=== PATIENT | male | born 1975 | race Caucasian/White ===

== ENCOUNTER → 2019-02-20 11:55 | Outpatient (CLI) | payer OTHER, SELFPAY ==
[2019-02-20 11:58] LABS: Bacteria 0 SEEN /hpf (None Seen); Mucous, Urine 0 SEEN /hpf (<or=2+); Red Blood Cells-Urine 0 SEEN /hpf (0-5); Squamous Epithelial Cells - UA 0 SEEN /hpf (0-5); White Blood Cells 0 SEEN /hpf (0-5)
[2019-02-20 15:58] LABS: Absolute Lymphocyte Count 2.17 X10^3/uL (0.83-4.51); Absolute Neutrophil Count 3.3 X10^3/uL (2.0-7.7); Basophil# 0.06 X10^3/uL; Eosinophil# 0.08 X10^3/uL; Eosinophils% 1.3 % (0-5); Hematocrit 45.3 % (40-54); Hemoglobin 14.9 g/dL (13.0-16.5); Lymphocyte # 2.17 X10^3/ul (4.0); Mean Corp Hgb Conc 32.9 g/dL (32-36); Mean Corpuscular Hgb 29.2 pg (27.0-32.0); Mean Corpuscular Volume 88.8 fL (80-94); Mean Platelet Vol. 11.5 fl (6.2-12.0); Monocyte% 9.7 % (0-10); NRBC Flagged by Analyzer 0 % (0-5); Neutrophil # 3.27 X10^3/uL (2.7-7.7); Neutrophil % 52.7 % (47-70); Platelet Count 249 K/mm3 (150-450); White Blood Count 6.2 K/mm3 (4.4-11.0)
[2019-02-20 16:00] LABS: Color, Urine Yellow (Yellow); Glucose, Dipstick Normal (Normal); Ketone-Dipstick Negative (Negative); Leukocyte Esterase-Dipstick Negative /ul (Negative); Nitrite-Dipstick Negative (Negative); Occult Blood-Urine Negative /ul (Negative); Protein-Dipstick Negative (Negative); Specific Gravity, Urine 1.015 (1.002-1.030); Urine Bilirubin Dipstick Negative (Negative); Urine Clarity Clear (Clear); Urine Urobilinogen Normal (Normal); Urine pH 6.5 (5.0 - 8.0)
[2019-02-20 16:23] LABS: ALB/GLOB Ratio 1.4 RATIO (0.9-2.4); AST(SGOT) 22 U/L (15-37); Alanine Aminotransfer ALT/SGPT 52 U/L (16-61); Albumin, Serum 4.2 g/dL (3.2-5.0); Alkaline Phosphatase 47 U/L (45-117); Anion Gap 9 (5-15); BUN 12 mg/dL (7-18); BUN/Creat Ratio 10.6 RATIO (10-20); Calcium,Total 8.6 mg/dL (8.5-10.1); Chloride 105 mmol/L (98-107); Creatinine, Serum 1.13 mg/dL (0.70-1.30); EST Glomerular Filtration Rate 76 mL/min (>60); Est Glom Filt Rate - Afr Amer 92 mL/min (>60); Globulin 3.1 g/dL (2.2-4.2); Glucose 89 mg/dL (74-106); Potassium 4.1 mmol/L (3.5-5.1); Protein, Total 7.3 g/dL (6.4-8.2); Sodium Level 138 mmol/L (136-145); T4 Free Direct 1.15 ng/dL (0.76-1.46); Thyroid Stim Hormone (TSH) 1.02 uIU/mL (0.358-3.74)
== END ==
PROVIDERS: Family Provider Family Medicine; PCP Family Medicine; Visit Provider Family Medicine
DX: R53.83 Other fatigue (principal); R63.1 Polydipsia; R51 Headache
CPT/HCPCS: 36415; 80053; 81001; 84439; 84443; 85025

== ENCOUNTER → 2019-03-10 20:11 | Outpatient (CLI) | payer OTHER, SELFPAY | PROVIDERS: Family Provider Family Medicine; PCP Family Medicine; Referring Provider Family Medicine; Visit Provider Family Medicine | DX: G47.30 Sleep apnea, unspecified (principal); R53.83 Other fatigue; R06.83 Snoring | CPT/HCPCS: 95810 ==

== ENCOUNTER → 2019-03-25 13:49 | Outpatient (CLI) | payer OTHER, SELFPAY | PROVIDERS: Family Provider Family Medicine; PCP Family Medicine; Referring Provider Family Medicine; Visit Provider Family Medicine | DX: G47.30 Sleep apnea, unspecified (principal); R06.83 Snoring; R53.83 Other fatigue | CPT/HCPCS: 95806 ==

== ENCOUNTER → 2019-04-30 17:36 | Outpatient (CLI) | payer OTHER, SELFPAY ==
--- NOTE | 2019-04-30 17:53 | MRI_ITS ---
STUDY: MRI BRAIN WITH AND WITHOUT CONTRAST REASON FOR EXAM: Male, 43 years old. chronic daily headaches, FORGETFULLNESS, MOOD SWINGS TECHNIQUE: Standardized multiplanar fat and water weighted pulse sequences were obtained. IV 15cc dotarem was administered for the contrast portion of the examination. COMPARISON: None. FINDINGS: Normal size of the ventricles and extra-axial spaces for the patient''s age. There are a limited number of small white matter hyperintensities, distributed throughout the deep white matter tracts of the cerebral hemispheres. Normal bilateral basal ganglia. Normal thalami. There is no extra-axial fluid accumulation. Normal flow voids within the major intracranial circulation suggesting patency by spin echo criteria. Normal venous enhancement. There is no enhancing intra-axial or extra-axial abnormality. Normal sella turcica, pituitary gland, infundibular stalk, optic chiasm and hypothalamus. Normal tectal plate and pineal gland. Normal midbrain, kirt and medulla. Normal cerebellum. Normal basal cisterns. Normal bilateral temporal bones. Normal bilateral internal auditory canals. No demonstrated orbital abnormality, within the constraints of a routine brain study. Normal visualized paranasal sinuses. Normal calvarium and skull base. Normal visualized soft tissue structures. Normal visualized upper cervical spine. MRI/Brain W/WO Contrast IMPRESSION: No acute intracranial abnormality or masses. Nonspecific minimal white matter hyperintensities. Differential considerations include chronic microvascular, migraine related vasculopathy and demyelination. Electronically Signed: Josephine Layne MD at 12:13 EST Tel , Service support ,
== END ==
PROVIDERS: PCP Family Medicine; Referring Provider Family Medicine; Visit Provider Family Medicine
DX: R51 Headache (principal); R41.3 Other amnesia
CPT/HCPCS: 70553; A9575

== ENCOUNTER 2019-05-27 22:38 | Emergency (ER) | payer OTHER, SELFPAY ==
[2019-05-27 22:39] VITALS: BP 115/70; PULSE 70; RESP 22; TEMP 36.5; O2SAT 94; BMI 24.4
[2019-05-27 22:50] LABS: Absolute Lymphocyte Count 2.57 X10^3/uL (0.83-4.51); Absolute Neutrophil Count 4.7 X10^3/uL (2.0-7.7); Basophil# 0.04 X10^3/uL; Basophil% 0.5 % (0-1); Eosinophil# 0.12 X10^3/uL; Eosinophils% 1.5 % (0-5); Hematocrit 43.8 % (40-54); Hemoglobin 14.8 g/dL (13.0-16.5); Lymphocyte # 2.57 X10^3/ul (4.0); Lymphocyte % 32.6 % (19-41); Mean Corp Hgb Conc 33.8 g/dL (32-36); Mean Corpuscular Hgb 28.9 pg (27.0-32.0); Mean Corpuscular Volume 85.5 fL (80-94); Mean Platelet Vol. 10.4 fl (6.2-12.0); Monocyte# 0.47 X10^3/uL; NRBC Flagged by Analyzer 0 % (0-5); Neutrophil # 4.66 X10^3/uL (2.7-7.7); Platelet Count 234 K/mm3 (150-450); RBC Distribution Width CV 12.7 % (11.6-14.6); RBC Distribution Width SD 39.4 fl (35.1-43.9); Red Blood Count 5.12 M/mm3 (4.6-6.2); White Blood Count 7.9 K/mm3 (4.4-11.0)
--- NOTE | 2019-05-27 23:00 | ED.VISSUMM ---
- ER Visit Summary Date of Service: 05/27/19 Chief Complaint: Possible prescription medication overuse or intoxicated History of Present Illness: The patient is a 43 M chronic headaches. 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 Recently had an MRI of his brain that was unremarkable. He is on Xanax and Seroquel. Family thinks today he either overused his medications or is intoxicated on alcohol or both. But family states his been depressed lately. He has been sharpening knives but is not attempted to hurt himself. He may have had an attempt years ago but nothing recently. He has had no recent attempts nor did he leave any suicide notes. Physical Examination: Middle-aged male vital signs are stable. He is afebrile. His pulse ox is 94% on room air no signs of hypoxia. He seems intoxicated. He is slurring his speech. He does follow commands. He is confused. He does not look septic or toxic. He does not look dehydrated. H EENT exam pupils are unreactive laser motions are intact. No facial droop. Slurred speech. No signs of trauma to his face or scalp. Neck nontender no lymphadenopathy. Tongue midline. He has cupcake frosting and coloring on his tongue. Lungs clear to auscultation bilaterally. Heart regular rhythm rate about 70 no murmur. Soft nontender normal bowel sounds no peritoneal signs.. Calves are nontender without edema or cords. Neurologically the patient is awake and alert. He knows where he is at. But he does not know the month or the year. He does know the president. He does follow limited commands. His speech is slurred consistent with intoxication of either drugs and/or alcohol. Test Results: CBC white count of 7. Hemoglobin 14. No bands which is unremarkable normal creatinine and gap. Tox screen urine drug abuse pending Tylenol normal. Salicylate is normal. Alcohol elevated 203 consistent with acute alcohol intoxication. Emergency Department Course and Treatment: Screening labs and tox screen. Repeat exam patient is resting comfortably. I went over all test results with both his and her sister present in the room. They are concerned for him and his overall wellbeing and want him evaluated by either social and political studies professor or crisis in the morning. They understand that his alcohol level must come down before that will occur. Treatment Plan: Patient remained in the emergency department overnight and be evaluated by either social and political studies professor or crisis in the morning. Disposition: Awaiting social and political studies professor and/or crisis evaluation. Patient will be turned over to the overnight physician.. Impression: Acute alcohol intoxication Overuse of medications Depressed and rule out suicidal This note was generated with [employer] dictation software. It may contain incorrect words, spelling, and punctuation that were not noted in review of the chart prior to signing ED Disposition - Plan for ED Patient: Referrals: Rojelio Holley DO [Primary Care Provider] -
[2019-05-27 23:08] LABS: Anion Gap 8 (5-15); BUN 15 mg/dL (7-18); BUN/Creat Ratio 11.9 RATIO (10-20); Calcium,Total 8.7 mg/dL (8.5-10.1); Chloride 110 mmol/L (98-107); Creatinine, Serum 1.26 mg/dL (0.70-1.30); EST Glomerular Filtration Rate 67 mL/min (>60); Est Glom Filt Rate - Afr Amer 81 mL/min (>60); Estimated Creatinine Clearance 82.17 ml/min; Glucose 146 mg/dL (74-106); Potassium 3.5 mmol/L (3.5-5.1); Sodium Level 143 mmol/L (136-145)
--- NOTE | 2019-05-27 23:11 | ED.RN ---
DR. WATSON SAID PATIENT DOESN'T NEED SUICIDE PRECAUTIONS AT THIS TIME.
[2019-05-27 23:36] LABS: Acetaminophen (Tylenol) Level < 2.0 ug/mL (10.0-30.0); Salicylate < 1.7 mg/dL (2.8-20.0)
[2019-05-28] VITALS (13 sets, daily range): BP systolic 96–138; BP diastolic 59–94; PULSE 47–63; RESP 14–22; O2SAT 93–99
[2019-05-28 00:03] LABS: Amphetamine Urine VISTA NEGATIVE (<1000 ng/mL); Barbiturate Urine VISTA NEGATIVE (< 200 ng/mL); Benzodiazepine Urine VISTA POSITIVE (< 200 ng/mL); Cocaine Urine VISTA NEGATIVE (< 300 ng/mL); Ecstacy Urine VISTA NEGATIVE (< 500 ng/mL); Methadone Urine VISTA NEGATIVE (< 300 ng/mL); PCP Urine VISTA NEGATIVE (< 25 ng/mL); THC Urine VISTA NEGATIVE (< 50 ng/mL); Vista UDS pH Range 7
--- NOTE | 2019-05-28 01:06 | ED.RN ---
PATIENT'S SISTER IN LAW SHOWED US HIS PHONE WHERE EARLIER IN THE DAY PATIENT WAS GOOGLING THE BEST WAY TO COMMIT SUICIDE, HIS MEDICATIONS HE WAS TAKEN, BEST MEDS FOR ANGER IN MEN. MADE AWARE.
--- NOTE | 2019-05-28 12:09 | CM.ED ---
Social Work Consult: Substance Abuse/Mental Health Informant: Dr. Stearns Chief Complaint: Patient stating to have taken Xanax and Seroquel, that are both prescribed to patient. Patient then stating to have drank some vodka. Patient 13 year old son came home with patient family and found patient on floor passed out. Patient stating that patient family then brought patient to the ED for evaluation. Marital/Social History: to Sylvia Salazar for the past 15 years. Patient has 5 children ranging in age from 2-13. Living Situation: Lives with patient spouse and children. Support/Resources: Stating to have support from friends and family. History: None Education/Employment History: Currently unemployed as of last year about this time. 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 Patient stating that patient spouse runs an [employer] agency and this is the main income for patient family. Patient stating to have completed collage and to have no concerns with learning or comprehension. Mental Health Treatment/History: Patient denies any history of mental health diagnosis. Patient stating to have started to have bad headaches in September 2018. Patient stating to believe that headaches are due to many years of football. Patient stating to have played football in High School and [employer]. Patient denies any history of inpatient psychiatric placement. Abuse Issues: Denies. Substance Abuse Hx: Patient stating to drink 5-6 beers a day. Per patient spouse, patient has been drinking for as long as I have known him. Patient denies any prescription drug abuse and to take medications as directed. Patient denies any other substance abuse/use. Patient stating I am not an alcoholic. Risk to Self/Others: Patient denies any active suicidal thoughts or plans. Patient stating that last suicidal thoughts was 1 month ago and the thought was fleeting. Patient stating to want to live for patient children and spouse. Patient presenting as goal oriented. Counseled patient on lethal means, patient stating there are no firearms in the home. This psychiatric social worker supervisor also encouraging patient spouse to lock up any medications. Patient manages medication through a pill box. Patient denies any homicidal thoughts. Patient stating that last night was a mistake. Mental Status Exam: A&OX3 Appearance/General Behavior: Clean/Appropriate. Mood/Affect: Appropriate. Communication Pattern: Responds to questions. Thought Process: Appropriate. Assessment: Met with patient in room. Introduced self as well as psychiatric social worker supervisor role. Patient is agreeable to meeting with this psychiatric social worker supervisor. Patient spouse, Sylvia and [id number], Paula present and asked to leave the room, they did so willingly. Patient stating that trigger to patient depression is patient headaches that started in September 2018. Patient stating to believe that headaches are related to history of playing football and head trauma in relation to this. Patient stating to have been yelling at patient children and spouse and I won't want to be that jay. Patient stating to also have noticed that patient has been isolating self from family due to headaches. Patient stating to currently be managing headaches with various psych medications and one being, Xanax prescribed by patient PCP. Patient stating to have spoken to PCP today and that PCP is going to discontinue Xanax for patient due to patient mixing alcohol and Xanax last evening. Patient is concerned about not taking Xanax anymore. Per patient, patient PCP is recommending a detox program for patient to get off Xanax. Patient denies any active counseling services or support. This psychiatric social worker supervisor broaching topic of counseling for patient as support. Patient stating I don't like to talk to people. This psychiatric social worker supervisor educating patient on the benefits of counseling. Patient voicing understanding and continues to be unsure about counseling services. Patient stating to be interested in a detox program. This psychiatric social worker supervisor broaching topic of intake assessment with [facility], patient is agreeable to this. Patient giving this psychiatric social worker supervisor permission to speak with patient family. This psychiatric social worker supervisor collaborating with patient family on discharge plan, all agreeable to plan for patient to follow up with an intake assessment through [facility]. Educated patient and patient family that [facility] has walk-in appointments until 3pm today (this psychiatric social worker supervisor confirmed this by calling [facility]). Patient family planning to bring patient to intake assessment on this day. Patient family also stating concerns of patient being compliant with medications, patient family stating that patient does take prescribed dose of medications throughout the day but not appropriate to the time of day. For example: Patient might take noon medication in the evening with evening medications. Patient educated on appropriate ways to follow prescription and that if patient forgot a medication that patient should call PCP before taking this medication at a later time. Patient voicing understanding. Collaborating with Dr. Stearns. Dr. Stearns agreeable with above plan. PLAN: Discharge to home with family and intake assessment with Destiny MANTILLA, [place]
--- NOTE | 2019-05-28 12:27 | ED.DEP ---
ED Disposition - Plan for ED Patient: Instructions: Drug Abuse, OVERDOSE, Accidental (Adult) Referrals: Rojelio Holley DO [Primary Care Provider] - Additional Instructions: Go directly to the [facility] for further management as instructed by ED counseling staff
== END 2019-05-28 12:33 | disposition home or self-care (01) ==
LOC: ED 23:17
PROVIDERS: Emergency Medicine; Emergency Provider Emergency Medicine; PCP Family Medicine
DX: F10.129 Alcohol abuse with intoxication, unspecified (principal); Y90.7 Blood alcohol level of 200-239 mg/100 ml; T42.4X1A Poisoning by benzodiazepines, accidental (unintentional), initial encounter; Y92.9 Unspecified place or not applicable; F32.9 Major depressive disorder, single episode, unspecified; Z79.899 Other long term (current) drug therapy
CPT/HCPCS: 36415; 80048; 80307; 80320; 80329; 85025; 99285; A4216; G0480

== ENCOUNTER 2019-05-30 02:33 | Inpatient (IN) | payer OTHER, SELFPAY ==
[2019-05-30 02:34] VITALS: BP 124/94; PULSE 70; RESP 18; TEMP 37.1; O2SAT 99; BMI 25.2
--- NOTE | 2019-05-30 02:56 | EKG12_ITS ---
Test Reason : DYSRHYTHMIA Blood Pressure : / mmHG Vent. Rate : 053 BPM Atrial Rate : 053 BPM P-R Int : 150 ms QRS Dur : 090 ms QT Int : 448 ms P-R-T Axes : 023 -05 009 degrees QTc Int : 420 ms Sinus bradycardia Otherwise normal ECG Confirmed by JAVIER CINTRON, GEORGE ([id number]), health editor NAVDEEP MCKEON ([id number]) on 06/01/2019 2:11:25 PM Referred By: ROCÍO Confirmed By:BRIDGETTE HERRERA MD
--- NOTE | 2019-05-30 02:58 | ED.VIS.GEN ---
History of Present Illness Chief Complaint: Substance Abuse Narrative: Patient is a 43-year-old male who presents with multiple complaints. He was recently seen in the emergency department for an accidental overdose of alcohol and benzodiazepines. After evaluation and discussion with the emergency physician, the patient's primary care physician, crisis patient agreed with a plan to try to come off of benzodiazepines. He was referred to [facility]. His primary care physician had a plan to discontinue his benzodiazepines over 5 weeks and today was the first day he took a decreased dose. He complains of headache, anxiety, difficulty sleeping. He does have a history of chronic headaches which he states the benzodiazepines were helping with and believes that since this dose has been decreased this is why he has increased headache today. He was brought in by family who would like him to be admitted for the detox program. Patient is agreeable with this plan for inpatient detox. Past Medical History - Allergies and Home Meds Allergies/Adverse Reactions: Allergies No Known Allergies Allergy (Verified 05/30/19 02:37) Primary Care Physician: Rojelio Holley DO [Primary Care Provider] - Past Medical History: - - Chronic headaches, anxiety Smoking Status: Never smoker - Family History Maternal Family History: Reports: No pertinent history Review of Systems All systems negative except as indicated General: Denies: Fever Eyes: Denies: Visual changes - bilaterally Cardiovascular: Denies: Chest pain Respiratory: Denies: Dyspnea Gastrointestinal: Denies: Nausea, Vomiting, Diarrhea Neurological: Reports: Headache Psych: Reports: Anxiety Physical Exam Vital Signs/Narrative: Vital Signs Temp Pulse Resp BP Pulse Ox 05/30/19 02:34 98.7 F 70 18 124/94 H 99 Inital Vital Signs reviewed: Yes General: Well nourished, Well developed Head: Normocephalic Eyes: EOMI ENT: Moist mucous membranes Neck: Supple Cardiovascular: Regular rate, Regular rhythm Respiratory: No distress, CTA bilaterally Abdomen: Soft, Nontender Extremities: Nontender Skin: Normal color Neurological: Alert Psychological: Normal affect Diagnostic/Tx/Re-eval Laboratory Results 05/30/19 05/30/19 05/30/19 03:00 03:05 03:05 WBC 7.1 RBC 4.95 Hgb 14.5 Hct 42.8 MCV 86.5 MCH 29.3 MCHC 33.9 RDW Std Deviation 40.0 RDW Coeff of Harman 12.9 Plt Count 224 MPV 10.6 Immature Gran % (Auto) 0.400 Neut % (Auto) 49.1 Lymph % (Auto) 36.4 [place] % (Auto) 10.4 H Eos % (Auto) 3.1 Baso % (Auto) 0.6 Absolute Neuts (auto) 3.5 Absolute Lymphs (auto) 2.60 Nucleated RBC % 0 Sodium 136 Potassium 3.5 Chloride 104 Carbon Dioxide 25.0 Anion Gap 7 BUN 19 H Creatinine 1.17 Estim Creat Clear Calc 88.49 Est GFR (MDRD) Af Amer 88 Est GFR (MDRD) Non-Af 73 BUN/Creatinine Ratio 16.2 Glucose 102 Calcium 8.1 L Total Bilirubin 0.60 AST 19 ALT 44 Alkaline Phosphatase 54 Total Protein 6.7 Albumin 3.7 Globulin 3.0 Albumin/Globulin Ratio 1.2 Urine Opiates Screen NEGATIVE Urine Methadone Screen NEGATIVE Ur Barbiturates Screen NEGATIVE Ur Phencyclidine Scrn NEGATIVE Ur Amphetamines Screen NEGATIVE U Methamphetamin-MDMA NEGATIVE U Benzodiazepines Scrn POSITIVE H Urine Cocaine Screen NEGATIVE U Cannabinoids Screen NEGATIVE Ur Drug Screen Comment Ethyl Alcohol 05/30/19 03:05 WBC RBC Hgb Hct MCV MCH MCHC RDW Std Deviation RDW Coeff of Harman Plt Count MPV Immature Gran % (Auto) Neut % (Auto) Lymph % (Auto) Jerauld % (Auto) Eos % (Auto) Baso % (Auto) Absolute Neuts (auto) Absolute Lymphs (auto) Nucleated RBC % Sodium Potassium Chloride Carbon Dioxide Anion Gap BUN Creatinine Estim Creat Clear Calc Est GFR (MDRD) Af Amer Est GFR (MDRD) Non-Af BUN/Creatinine Ratio Glucose Calcium Total Bilirubin AST ALT Alkaline Phosphatase Total Protein Albumin Globulin Albumin/Globulin Ratio Urine Opiates Screen Urine Methadone Screen Ur Barbiturates Screen Ur Phencyclidine Scrn Ur Amphetamines Screen U Methamphetamin-MDMA U Benzodiazepines Scrn Urine Cocaine Screen U Cannabinoids Screen Ur Drug Screen Comment Ethyl Alcohol < 3.0 - Medical Decision Making CIWA-B score is 29. Patient does have subjective complaints of feeling very irritable and very tense. He does not show physical exam findings of severe withdrawal such as tachycardia or hypertension. He is calm and cooperative with history and examination. Patient underwent the above medical clearance which is essentially unremarkable. EKG shows sinus bradycardia at a rate of 53. Patient will be discussed with the hospitalist and admitted. ED Disposition - Plan for ED Patient: Disposition: Acute Care Hospital [facility] Diagnosis: Benzodiazepine withdrawal Referrals: Rojelio Holley DO [Primary Care Provider] -
[2019-05-30 03:11] LABS: Absolute Neutrophil Count 3.5 X10^3/uL (2.0-7.7); Basophil# 0.04 X10^3/uL; Basophil% 0.6 % (0-1); Eosinophil# 0.22 X10^3/uL; Eosinophils% 3.1 % (0-5); Hematocrit 42.8 % (40-54); Hemoglobin 14.5 g/dL (13.0-16.5); Lymphocyte % 36.4 % (19-41); Mean Corp Hgb Conc 33.9 g/dL (32-36); Mean Corpuscular Hgb 29.3 pg (27.0-32.0); Mean Corpuscular Volume 86.5 fL (80-94); Mean Platelet Vol. 10.6 fl (6.2-12.0); Monocyte# 0.74 X10^3/uL; Monocyte% 10.4 % (0-10); NRBC Flagged by Analyzer 0 % (0-5); Neutrophil # 3.51 X10^3/uL (2.7-7.7); Neutrophil % 49.1 % (47-70); Platelet Count 224 K/mm3 (150-450); RBC Distribution Width CV 12.9 % (11.6-14.6); Red Blood Count 4.95 M/mm3 (4.6-6.2); White Blood Count 7.1 K/mm3 (4.4-11.0)
[2019-05-30 03:23] LABS: Amphetamine Urine VISTA NEGATIVE (<1000 ng/mL); Barbiturate Urine VISTA NEGATIVE (< 200 ng/mL); Benzodiazepine Urine VISTA POSITIVE (< 200 ng/mL); Cocaine Urine VISTA NEGATIVE (< 300 ng/mL); Ecstacy Urine VISTA NEGATIVE (< 500 ng/mL); Methadone Urine VISTA NEGATIVE (< 300 ng/mL); PCP Urine VISTA NEGATIVE (< 25 ng/mL); THC Urine VISTA NEGATIVE (< 50 ng/mL)
[2019-05-30 03:25] LABS: Vista UDS pH Range 6
[2019-05-30 03:28] LABS: ALB/GLOB Ratio 1.2 RATIO (0.9-2.4); AST(SGOT) 19 U/L (15-37); Alanine Aminotransfer ALT/SGPT 44 U/L (16-61); Albumin, Serum 3.7 g/dL (3.2-5.0); Alkaline Phosphatase 54 U/L (45-117); Anion Gap 7 (5-15); BUN 19 mg/dL (7-18); BUN/Creat Ratio 16.2 RATIO (10-20); Calcium,Total 8.1 mg/dL (8.5-10.1); Chloride 104 mmol/L (98-107); Creatinine, Serum 1.17 mg/dL (0.70-1.30); EST Glomerular Filtration Rate 73 mL/min (>60); Est Glom Filt Rate - Afr Amer 88 mL/min (>60); Estimated Creatinine Clearance 88.49 ml/min; Glucose 102 mg/dL (74-106); Potassium 3.5 mmol/L (3.5-5.1); Protein, Total 6.7 g/dL (6.4-8.2); Sodium Level 136 mmol/L (136-145)
[2019-05-30 03:50] LABS: Alcohol, Blood (Medical)-Serum < 3.0 mg/dL
--- NOTE | 2019-05-30 04:02 | PCM.HP.STD ---
Problem List (1) EtOH dependence Status: Acute (2) Benzodiazepine withdrawal Status: Acute History of Present Illness Date of Admission: 05/30/19 Chief Complaint: headache The patient is a 43 year old M with a significant history of post concussion syndrome who presented with a headache x1 day. Patient attributes his headache to benzodiazepine withdrawal. Patient was on benzodiazepine 9 mg daily. However his primary care physician discussed with patient on tapering his benzodiazepine off. A day before presentation he was made to take a reduced dose of the benzodiazepine and then he developed headache. His headache is at the frontal area and it radiates to his thong-orbital area. He rated his pain as of intensity 9 out of 10 before presentation. And at the emergency department his pain was 8 out of 10. Also he complains of 'tension' in his bilateral shoulders; and he has posterior neck pain. On 05/27/2019 patient took a cocktail of vodka; Xanax and Seroquel and was found lying on the floor. He was brought to the emergency department. Together with the emergency department doctor, patient's family, PCP and crisis it was decided that patient follows up with [facility]. Reportedly [facility] recommended patient sees a doctor. On this presentation, at the emergency department his CIWA was scored as 29. However he did not appear to be in marjorie withdrawal by physical exams but because of the subjectiveness of the CIWA tool and the answers he gave he ended up scoring a 29 as above. Patient reports drinking about 5 beers per day. 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 Reportedly his headache intensified in September 2018. Past Medical History Medical History: Medical History (Last Updated 05/30/19 @ 05:[address] Elliot Mandujano MD) Post-concussion headache G44.309 Allergies No Known Allergies Allergy (Verified 05/30/19 02:37) Home Medications: Ambulatory Orders Medication Instructions Recorded ALPRAZolam [Xanax] 2 tab PO BID 05/27/19 Citalopram Hydrobromide 40 mg PO DAILY 05/27/19 [Citalopram HBr] Mecobalamin [B12 Active] 1 tab PO DAILY 05/27/19 Quetiapine Fumarate 100 tab PO QHS 05/27/19 Vitamin D3 1,000 mg PO DAILY 05/27/19 Alprazolam [Xanax] 1 mg PO DAILY 05/30/19 Quetiapine Fumarate [Seroquel] 25 mg PO DAILY 05/30/19 Surgical History: - - Shoulder surgery Psychiatric History: Anxiety, Depression Lives: With Family Smoking Status: Former smoker Alcohol: Heavy - *Family History Maternal History Items: Stroke, - - Brain aneurysm Paternal History Items: Cancer - Lung, Heart Disease, Hypertension, Stroke Review of Systems Constitutional: Denies: Chills, Fever, Weight Change HEENT: Reports: Head Aches. Denies: Sinus Congestion, Sinus Drainage Cardiovascular: Denies: Chest Pain, Palpitations Respiratory: Denies: Cough, Shortness of breath at rest, Sputum production Gastrointestinal: Denies: Abdominal Pain, Nausea, Vomiting Genitourinary: Denies: Dysuria Musculoskeletal: Reports: Neck Pain, Shoulder Pain - tension in shoulders; bilateral. Denies: Joint Pain, Joint Tenderness Skin: Denies: Rash, Wounds Neurological: Denies: Numbness, Tingling, Focal weakness Psychiatric: Reports: Anxiety, Depression. Denies: Homicidal Ideations, Suicidal Ideations Hematologic/ Lymphatic: Denies: Easy Bruising, Easy Bleeding VTE Information - Inpt Only VTE Present on Admission: No VTE Mechan Device Prophylaxis: None VTE Pharm Prophylaxis ordered?: No Reason prophylaxis not ordered:: Treatment Not Indicated - Low risk; encouraged to ambulate Patient Problems: Active and Suspected Problems (Last Updated 05/30/19 @ 05:[address] Elliot Mandujano MD) Benzodiazepine withdrawal (Acute) EtOH dependence (Acute) - Physical Exam Vitals/I&O's: Vital Signs Temp Pulse Resp BP Pulse Ox 98.7 F 70 18 124/94 H 99 05/30/19 02:34 05/30/19 02:34 05/30/19 02:34 05/30/19 02:34 05/30/19 02:34 Oxygen Delivery Method Room Air Weight: 81.9 kg Body Mass Index (BMI) 25.2 General: Alert, Oriented x3, Cooperative HEENT: Atraumatic, PERRLA, EOMI, Normocephalic Neck: Supple, No JVD, Negative Carotid Bruits Lungs: Clear to auscultation, Normal air movement Cardiovascular: Regular Rhythm, Normal S1, Normal S2, No murmurs, Bradycardic Abdomen: Bowel Sounds Present, Soft, Non Tender Extremities: No edema, Capillary Refill Less than 3 Seconds Skin: No rashes, No breakdown, - - Ecchymosis on right upper biceps area. Musculoskeletal: No Muscle Wasting Neurological: Cranial nerves II-XII grossly intact Psych/Mental Status: Normal Affect, Appropriate, - - Talkative Laboratory Results 05/30/19 03:00: Urine Opiates Screen NEGATIVE, Urine Methadone Screen NEGATIVE, Ur Barbiturates Screen NEGATIVE, Ur Phencyclidine Scrn NEGATIVE, Ur Amphetamines Screen NEGATIVE, U Methamphetamin-MDMA NEGATIVE, U Benzodiazepines Scrn POSITIVE H, Urine Cocaine Screen NEGATIVE, U Cannabinoids Screen NEGATIVE, Ur Drug Screen Comment 05/30/19 03:05: WBC 7.1, RBC 4.95, Hgb 14.5, Hct 42.8, MCV 86.5, MCH 29.3, MCHC 33.9, RDW Std Deviation 40.0, RDW Coeff of Harman 12.9, Plt Count 224, MPV 10.6, Immature Gran % (Auto) 0.400, Neut % (Auto) 49.1, Lymph % (Auto) 36.4, [place] % (Auto) 10.4 H, Eos % (Auto) 3.1, Baso % (Auto) 0.6, Absolute Neuts (auto) 3.5, Absolute Lymphs (auto) 2.60, Nucleated RBC % 0 05/30/19 03:05: Sodium 136, Potassium 3.5, Chloride 104, Carbon Dioxide 25.0, Anion Gap 7, BUN 19 H, Creatinine 1.17, Estim Creat Clear Calc 88.49, Est GFR (MDRD) Af Amer 88, Est GFR (MDRD) Non-Af 73, BUN/Creatinine Ratio 16.2, Glucose 102, Calcium 8.1 L, Total Bilirubin 0.60, AST 19, ALT 44, Alkaline Phosphatase 54, Total Protein 6.7, Albumin 3.7, Globulin 3.0, Albumin/Globulin Ratio 1.2 05/30/19 03:05: Ethyl Alcohol < 3.0 Assessment/Plan All Active Problems (Last Updated 05/30/19 @ 05:[address] Elliot Mandujano MD) Benzodiazepine withdrawal (Acute) EtOH dependence (Acute) The patient is a 43 year old M with a significant history of post concussion syndrome who presented with a headache and asking for detoxification from benzodiazepine and alcohol. Detoxification from alcohol and benzodiazepine. Put patient on CIWA protocol with Librium taper; multivitamins; thiamine; folic acid; methocarbamol; Tylenol; Vistaril and other supportive medications as needed. Discussed with patient that while on Librium will hold home Seroquel and order melatonin nightly PRN. Counseled. Depression and Anxiety disorder Celexa continued. DVT prophylaxis: low risk. Encourage to ambulate. Code Visit Inpatient E&M: 88123 Init Hosp L3
[2019-05-30 05:07] VITALS: BP 124/83; PULSE 47; RESP 16; TEMP 36.7; O2SAT 97
[2019-05-30 05:11] VITALS: BMI 24.1
[2019-05-30 05:34] VITALS: BMI 24.1
[2019-05-30] MEDS: Methocarbamol 750 MG Tablet PO ×3 (05:48→22:46)
[2019-05-30] MEDS: Senna/Docusate Sodium 1 Tablet 2 TABLET PO ×2 (05:48→18:14)
[2019-05-30] MEDS: chlordiazePOXIDE 25 MG Capsule 50 MG PO ×2 (05:48→11:43)
[2019-05-30] MEDS: Acetaminophen 325 MG Tablet 650 MG PO ×3 (05:49→18:14)
[2019-05-30 09:00] VITALS: BP 121/64; PULSE 53; RESP 18; TEMP 36.5; O2SAT 97
[2019-05-30] MEDS: Citalopram 40 MG TABLET PO (09:58)
[2019-05-30] MEDS: Multivitamins,Therapeutic Tablet 1 TABLET PO (09:58)
[2019-05-30] MEDS: Thiamine Hydrochloride 100 MG Tablet PO (09:58)
[2019-05-30] MEDS: Folic Acid 1 MG Tablet PO (09:58)
[2019-05-30] MEDS: hydrOXYzine PAM 25 MG Capsule 50 MG PO ×3 (10:04→22:46)
--- NOTE | 2019-05-30 12:18 | CASEMGMT ---
Social Work Consult: Substance withdrawal. Met with patient in room. Patient familiar to this secondary social studies teacher from prior visit this week. Patient remembering this secondary social studies teacher. Patient attempted outpatient services with [facility] for managing withdrawal from Xanax. Patient also consumes 5-6 beers daily, but does not see this as an issue. Patient aware that either [facility] or social work services will be following up with patient on discharge plan and supports. Kin Tello METAL CHECKER, [place]
--- NOTE | 2019-05-30 12:27 | PCM.HOSP.N ---
Hospitalist Note Patient states that he takes alprazolam for his headaches. States that he has been very emotionally labile and gets very angry over minor details, such as not able to understand directions from GPS, his son not giving his phone properly. States that whenever he gets anxious he gets a headache and then he gets even more anxious because he has a headache. States that he was having headache just talking with me. States his had a recent evaluation with a neurologist at [facility]. I discussed with the patient's , Sylvia. States that she is noticed segment changes since this summer where the patient has not been tolerating stressors lately. He had a job that he quit because he was unable to tolerate with the stress and I was recently started a job with her. The night that he became obtunded with vodka and Xanax, he had a bad day at work and was not able to process it well. She states that he has been taking his alprazolam not as instructed and has recently taking it 9 times per day. He has been seen by neurology at [facility] as mentioned above but they have recommended an psychiatric evaluation and that they were going to contact him so that he can have psychological as well as cognitive evaluation. The neurologist was concerned that the patient may have some alcoholic encephalopathy but has not been formally diagnosed with such. Went back and told the patient what I discussed with his but also discussed also that I am not sure he is actually going through acute alcohol withdrawal nor benzodiazepine withdrawal. He may be having migraines independent of any, withdrawal or it could just be a manifestation of his anxiety and then him having headache makes his anxiety even worse which may precipitate more headaches. Told that he and his that we will treat his migraine with steroids as well as Phenergan and Benadryl. I tried to tell the patient that he needs further psychiatric evaluation and counseling and that he needs to be an active participant in regards to his overall care. It seems that he has been pretty passive and just wanting medications to alleviate his symptoms as well as alcohol. I have I discontinued the Librium and put the patient on his alprazolam which she is currently been initiated on a taper by his primary care doctor which I agree with. Code Visit Procedures: Other Procedure - See Report - Non billable rounding as patient was seen after midnight by admitting physician.
[2019-05-30] MEDS: 0.9% Saline Lock 10 ML Syringe IV (13:08)
[2019-05-30] MEDS: ALPRAZolam 0.5 MG Tablet 1 MG PO ×2 (13:08→22:46)
[2019-05-30] MEDS: dexAMETHasone 10 MG/ML Vial IV (13:09)
[2019-05-30 13:54] VITALS: O2SAT 97
[2019-05-30 15:00] VITALS: BP 127/88; PULSE 60; RESP 18; TEMP 36.6; O2SAT 96
[2019-05-30] MEDS: DiphenhydrAMINE 25 MG Capsule 50 MG PO ×2 (15:55→22:45)
[2019-05-30 21:06] VITALS: BP 116/81; PULSE 61; RESP 18; TEMP 36.6; O2SAT 96
[2019-05-30] MEDS: MELATONIN 3 MG TABLET PO (22:46)
[2019-05-31] MEDS: QUEtiapine 100 MG Tablet PO (01:12)
[2019-05-31] MEDS: Acetaminophen 325 MG Tablet 650 MG PO (01:17)
[2019-05-31 01:25] VITALS: BP 100/55; PULSE 61; RESP 16; TEMP 36.5; O2SAT 94
[2019-05-31] MEDS: Senna/Docusate Sodium 1 Tablet 2 TABLET PO (06:37)
[2019-05-31] MEDS: Methocarbamol 750 MG Tablet PO (06:37)
[2019-05-31 07:26] VITALS: O2SAT 98
--- NOTE | 2019-05-31 08:36 | NURSING ---
Pt came out to the desk and had head laying on desk. Pt was upset that he has not slept in 3 days. Something has to be done, I haven't slept in 3 days. Pt very loud and walking away from this nurse as this nurse was still talking to him. This nurse talked with Dr. Ernandez about pt. No new orders for prn's to help pt sleep but Crisis called yesterday per Dr. Ernandez. This nurse Called Crisis to get a time that pt would be seen, awaiting call back.
--- NOTE | 2019-05-31 08:45 | NURSING ---
Crisis called back. Will be here in one hour.
--- NOTE | 2019-05-31 09:38 | CCHN_ITS ---
Hospitalist Note Follow-up polysubstance abuse Subjective. Patient slept only for bed last night. Patient states he is very concerned about his lack of sleep and wonders what further we can do about his sleep. States that he does not have alcohol at his house. Question that directly is he had consumed a no vodka and Xanax to knock him out and is been en dorsing the fact that he drinks 5-6 beers per day. He clarified stating that he does not have hard alcohol in his house meaning liquor. But I told him that he had vodka which is a hard liquor. He then stated that that was left over after a [employer] party that was at their house. He then clarify that beer is not really alcohol in the fact that it is not vodka or bourbon. I told him that it is alcohol but less percentage of alcohol. I continue to remind him that he does not have control over his ability with to take medications properly as he was taking amitriptyline as well as Xanax inappropriately to help alleviate sleep and headaches, respectively. Informed him that he needs to accept responsibility for his actions to stop making excuses. Patient stated that he was having really severe headache which is why he took in the vodka and the large amount of Xanax together. 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 Physical exam Vital Signs Height 1.8 m Weight: 78.471 kg Weight in Pounds 173.0 lbs Pulse Ox 98 Temperature 36.5 C Pulse Rate 61 Respiratory Rate 16 Blood Pressure 100/55 Blood Pressure Position Supine General: Patient is in bed no acute distress. No diaphoresis, no tremulousness. Head is atraumatic and normocephalic. Moves all extremity spontaneously. Assessment: 1. Migraine: Patient describing his headaches is very severe lasting for an hour or 2 and then come at certain times such as noon, 4 PM and 6 PM. States it can be very intense at times. Question of these are migraines versus cluster headaches versus just a variant of his underlying anxiety. Patient said that he would only have relief when he would take alprazolam. I reinforced to him that there is no clinical indication for alprazolam and the use of headaches of any kind. That is why think that these headaches he is experiencing could be just a physiologic manifestation of his anxiety. Will have the neurologist phone and to evaluate the patient and make further recommendations to see if he would need to be on any kind of prophylactic medications or if how else we should proceed. He is previously had an MRI that showed some changes that could be associated with migraines or other processes. Did give the patient Solu-Medrol yesterday but did not seem to have any relief on him today. 2. Polysubstance abuse: Is with alcohol and benzodiazepines. Patient's Librium was discontinued yesterday patient was monitored for signs of alcohol withdrawal which she has not manifested. From an alcohol standpoint patient may benefit from further treatment such as alcoholics anonymous. For the benzodiazepine, patient has just been using it inappropriately taking multiple pills per day with alcohol. Patient is taking it for his headaches which is clearly not indicated for. Patient is currently on a taper as he has been on thaddeus odiazepines for several months that has been initiated by his primary care physician. 3. Insomnia: Given the patient's inappropriate use of medications, as stated I would not advise Jorge Luis Tsang nor even Jacobo for high concern for him using medications inappropriately. I feel there will be less chance of harm with melatonin. Also advised proper sleep schedule with going bed a certain palmer e and with the avoidance of alcohol and caffeine and to minimize screen time prior to bed. 4. Anxiety: Is complicating care overall. Is unclear if he is just more anxious and impulsive due to his recurrent headaches or if the anxiety is contributing to these. Patient is already on citalopram at baseline. We have asked for the crisis liaison to come evaluate patient and provide additional recommendations. Patient is not suicidal so would not need any kind involuntary unit. Patient would require counseling and try to encourage patient to be involved with his care rather than being passive and wanting medications to fix everything. Greater than 60 minutes of which greater than 50% of the time was counseling the patient at bedside about alcohol, inappropriate substance use, migraines and headaches, anxiety and insomnia. Code Visit Inpatient E&M: 62069 Subs Hosp L3
[2019-05-31 09:56] VITALS: BP 133/77; PULSE 67; RESP 18; TEMP 36.6; O2SAT 98
[2019-05-31] MEDS: Citalopram 40 MG TABLET PO (10:05)
[2019-05-31] MEDS: Thiamine Hydrochloride 100 MG Tablet PO (10:05)
[2019-05-31] MEDS: Multivitamins,Therapeutic Tablet 1 TABLET PO (10:05)
[2019-05-31] MEDS: Folic Acid 1 MG Tablet PO (10:05)
[2019-05-31] MEDS: ALPRAZolam 0.5 MG Tablet 1 MG PO (10:07)
[2019-05-31 10:10] VITALS: PULSE 68
--- NOTE | 2019-05-31 12:51 | NURSING ---
Crisis has come to see pt and recommended IOP/PHP at [facility].
--- NOTE | 2019-05-31 13:16 | NURSING ---
TELEMED CONSULT W/NEUROLOGIST FROM [facility] AT THIS TIME. AT BEDSIDE ALSO.
[2019-05-31 15:00] VITALS: BP 107/53; PULSE 74; RESP 18; TEMP 36.4; O2SAT 97
--- NOTE | 2019-05-31 17:45 | PCM.DC ---
- Discharge Diagnoses Current Active Problems: Current Active and Chronic Problems (Last Updated 05/30/19 @ 05:[address] Elliot Mandujano MD) Benzodiazepine withdrawal (Acute) EtOH dependence (Acute) You will use the following diet at home:: No restrictions Your food should be the consistency of: Regular Call your doctor if you observe: - - refractory headache/migraine Allergies/Adverse Reactions: Allergies No Known Allergies Allergy (Verified 05/30/19 02:37) Medications to take at Discharge Citalopram Hydrobromide [Citalopram HBr] 40 mg PO DAILY 05/27/19 Mecobalamin [B12 Active] 1 tab PO DAILY 05/27/19 Vitamin D3 1,000 mg PO DAILY 05/27/19 ALPRAZolam [Xanax] 2 mg PO BID #0 05/31/19 Acetaminophen 2 tab PO TID PRN #1 tab 05/31/19 Ibuprofen 4 tab PO TID PRN #1 tab 05/31/19 Multivitamins,Therapeutic [Multivitamin] 1 tab PO DAILYCM tab 05/31/19 The following prescriptions were given: Acetaminophen 2 tab PO TID PRN #1 tab PRN Reason: Migraine Symptoms Ibuprofen 4 tab PO TID PRN #1 tab PRN Reason: Migraine Symptoms Primary Care Physician: Rojelio Holley DO [Primary Care Provider] - Test Results: Test results from this visit will be discussed in further detail at your follow-up appointment, if applicable. Please Follow Up With: [facility] neurology When: next scheduled appointment Please Follow Up With: Behavioral Health When: call [phone] for appointment with Zeyad Please Follow Up With: [facility] [place] When: if needed [phone] Proposed Discharge Date: 05/31/19
--- NOTE | 2019-05-31 17:50 | DS.PCM_ITS ---
Discharge Date and Diagnosis - Problem List Patient Problems: Active and Suspected Problems (Last Updated 05/30/19 @ 05:[address] Elliot Mandujano MD) Benzodiazepine withdrawal (Acute) EtOH dependence (Acute) Date of Admission: 05/30/19 Date of Discharge: 05/31/19 - Primary Discharge Diagnosis Active and Suspected Problems (Last Updated 05/30/19 @ 05:[address] Elliot Mandujano MD) Migraine Polysubstance abuse Anxiety Hospital Course and Treatment SOC Teleneurology Operations: None Procedures: None Summary of Care Provided: The patient is a 43 year old M presents seeking treatment for alcohol and benzodiazepine dependence. 1. Migraine: Patient describing his headaches is very severe lasting for an hour or 2 and then come at certain times such as noon, 4 PM and 6 PM. States it can be very intense at times. Question of these are migraines versus cluster headaches versus just a variant of his underlying anxiety. Patient said that he would only have relief when he would take alprazolam. I reinforced to him that there is no clinical indication for alprazolam and the use of headaches of any kind. That is why think that these headaches he is experiencing could be just a physiologic manifestation of his anxiety. Will have the neurologist phone and to evaluate the patient and make further recommendations to see if he would need to be on any kind of prophylactic medications or if how else we should proceed. He is previously had an MRI that showed some changes that could be associated with migraines or other processes. Did give the patient Solu-Medrol yesterday but did not seem to have any relief on him today. Patient was seen by tele-neurology who feels patient likely has medication overuse headaches and have advised to continue to wean down the alprazolam. Patient has been told by his neurologist at [facility] to discontinue it and to use gabapentin instead. I do not agree with that assessment and I recommend patient continue to wean the alprazolam to off and not to take gabapentin. Advised patient to follow-up with his [facility] neurology or neurologist [facility] for headache management. Did not seem concerning from the neurologist that this may be cluster headaches. 2. Polysubstance abuse: Is with alcohol and benzodiazepines. Patient's Librium was discontinued yesterday patient was monitored for signs of alcohol withdrawal which she has not manifested. From an alcohol standpoint patient may benefit from further treatment such as alcoholics anonymous. For the benzodiazepine, patient has just been using it inappropriately taking multiple pills per day with alcohol. Patient is taking it for his headaches which is clearly not indic ated for. Patient is currently on a taper as he has been on benzodiazepines for several months that has been initiated by his primary care physician. I made recommendations to have a slow taper of the alprazolam 1 mg tablets 2 tabs twice daily for 1 week, then 1/2 tablets twice daily for 1 week, then 1 tablet twice daily for 1 week then 1 tablet daily for 1 week, then 1 tablet every other day for 3 doses then stop. 3. Insomnia: Given the patient's inappropriate use of medications, as stated I would not advise Jorge Luis Tsang nor even Jacobo for high concern for him using medications inappropriately. I feel there will be less chance of harm with melatonin. Also advised proper sleep schedule with going bed a certain time and with the avoidance of alcohol and caffeine and to minimize screen time prior to bed. 4. Anxiety: Is complicating care overall. Is unclear if he is just more anxious and impulsive due to his recurrent headaches or if the anxiety is contributing to these. Patient is already on citalopram at baseline. We have asked for the crisis liaison to come evaluate patient and provide additional recommendations. Patient is not suicidal so would not need any kind involuntary unit. Patient would require counseling and try to encourage patient to be involved with his care rather than being passive and wanting medications to fix everything. Patient was seen by crisis who gave information for the patient follow-up with behavioral health. Number will be provided for the patient to follow-up with behavioral health on an outpatient basis. I told he and his that is okay for him to continue with his citalopram. [] Patient Problems: Active and Suspected Problems (Last Updated 05/30/19 @ 05:[address] Elliot Mandujano MD) Benzodiazepine withdrawal (Acute) EtOH dependence (Acute) - Physical Exam Vitals/I&O's: Vital Signs Temp Pulse Resp BP Pulse Ox 36.4 C L 74 18 107/53 L 97 05/31/19 15:00 05/31/19 15:00 05/31/19 15:00 05/31/19 15:00 05/31/19 15:00 Oxygen Delivery Method Room Air Weight: 78.471 kg Body Mass Index (BMI) 24.1 Intake and Output for Last 24 Hours 05/29/19 05/30/19 05/31/19 23:59 23:59 23:59 Intake Total 1612 / 1612 700 / 700 Balance 1612 / 1612 700 / 700 Current Medications Acetaminophen (Tylenol) 650 mg PO Q6H PRN PRN PRN Reason: Pain Score 1-10/Temp > 100.7 F Last Admin: 05/31/19 01:17 Dose: 650 mg Documented by: Alprazolam (Xanax) 1 mg PO BID [facility] Last Admin: 05/31/19 10:07 Dose: 1 mg Documented by: Cholecalciferol (Vitamin D (25mcg)) 1,000 unit PO DAILY [facility] Last Admin: 05/31/19 10:05 Dose: 1,000 unit Documented by: Citalopram Hydrobromide (Celexa) 40 mg PO DAILY [facility] Last Admin: 05/31/19 10:05 Dose: 40 mg Documented by: Dicyclomine HCl (Bentyl) 20 mg PO Q6H PRN PRN PRN Reason: abdominal discomfort Diphenhydramine HCl (Benadryl) 50 mg PO Q6H PRN PRN Reason: MIGRAINE SYMPTOMS Last Admin: 05/30/19 22:45 Dose: 50 mg Documented by: [facility]) [facility] Stop: 06/01/19 08:01 Last Admin: 05/31/19 10:05 Dose: 1 mg Documented by: Glucagon () 1 mg IM .X1 PRN PRN Reason: Hypoglycemia Hydroxyzine Pamoate (Vistaril Pamoate Capsule) 50 mg PO Q6H PRN PRN PRN Reason: Mild Anxiety (score 1/3) Last Admin: 05/30/19 22:46 Dose: 50 mg Documented by: Dextrose (Dextrose 10%-Water) 250 mls @ 999 mls/hr IV .Q16M PRN; Protocol PRN Reason: HYPOGLYCEMIA Lorazepam (Ativan) 2 mg IV X1 PRN PRN Reason: Seizure Methocarbamol (Methocarbamol) 750 mg PO Q6H PRN PRN PRN Reason: Muscle Aches Last Admin: 05/31/19 06:37 Dose: 750 mg Documented by: Multivitamins (Multivitamin) [facility] Last Admin: 05/31/19 10:05 Dose: 1 tablet Documented by: Ondansetron HCl (Zofran) 4 mg IV Q8H PRN PRN PRN Reason: NAUSEA/VOMITING Promethazine HCl (Phenergan) 12.5 mg IV Q6H PRN PRN PRN Reason: MIGRAINE SYMPTOMS Quetiapine Fumarate (Seroquel) 100 mg PO QHS [facility] Last Admin: 05/31/19 01:12 Dose: 100 mg Documented by: Senna/Docusate Sodium (Senokot-S, Melissa-Colace) 2 tablet PO BID PRN PRN PRN Reason: Constipation Last Admin: 05/31/19 06:37 Dose: 1 tablet Documented by: Sodium Chloride () 10 - 40 ml IV UD PRN PRN Reason: SALINE FLUSH Last Admin: 05/30/19 13:08 Dose: 10 ml Documented by: Thiamine HCl (Vitamin B1) [facility] Stop: 06/01/19 08:01 Last Admin: 05/31/19 10:05 Dose: 100 mg Documented by: Discharge Diet: No Restrictions Call your doctor if you observe: - - refractory headache/migraine Home Medications: Medications to take at Discharge Citalopram Hydrobromide [Citalopram HBr] 40 mg PO DAILY 05/27/19 Mecobalamin [B12 Active] 1 tab PO DAILY 05/27/19 Vitamin D3 1,000 mg PO DAILY 05/27/19 ALPRAZolam [Xanax] 2 mg PO BID #0 05/31/19 Acetaminophen 2 tab PO TID PRN #1 tab 05/31/19 Ibuprofen 4 tab PO TID PRN #1 tab 05/31/19 Multivitamins,Therapeutic [Multivitamin] 1 tab PO DAILYCM tab 05/31/19 Following Prescrptions Were Given to Patient: Acetaminophen 2 tab PO TID PRN #1 tab PRN Reason: Migraine Symptoms Ibuprofen 4 tab PO TID PRN #1 tab PRN Reason: Migraine Symptoms Primary Care Physician: Rojelio Holley DO [Primary Care Provider] - Please Follow Up With: [facility] neurology When: next scheduled appointment Please Follow Up With: Behavioral Health When: call [phone] for appointment with Zeyad Please Follow Up With: [facility] [place] When: if needed [phone] Disposition: Home Minutes spent on discharge:: 75 Patient Condition:: Good Medical Necessity - Tobacco Use Smoking Status: Former smoker Meaningful Use Info Meaningful Use Diagnoses (Choose all that apply): None applicable Code Visit Inpatient E&M: 62237 Disch Hosp
[2019-05-31 18:27] VITALS: BP 105/63; PULSE 64; RESP 18; TEMP 36.9; O2SAT 95
== END 2019-05-31 18:40 | disposition home or self-care (01) | DRG 103 ==
LOC: ED 03:58 → MS3 04:55
PROVIDERS: Admitting Provider Hospitalist; Emergency Provider Emergency Medicine; PCP Family Medicine
DX: G43.909 Migraine, unspecified, not intractable, without status migrainosus (principal); F41.9 Anxiety disorder, unspecified; F10.10 Alcohol abuse, uncomplicated; F13.10 Sedative, hypnotic or anxiolytic abuse, uncomplicated; Z87.891 Personal history of nicotine dependence; Z23 Encounter for immunization
CPT/HCPCS: 80053; 80307; 80320; 85025; 93005; 99284; 90686; A4216; G0480; J3490

== ENCOUNTER → 2019-07-22 10:08 | Outpatient (CLI) | payer OTHER, SELFPAY ==
[2019-07-22 12:34] LABS: CRP < 2.90 mg/L (0.0-3.0)
[2019-07-22 12:35] LABS: Vitamin B12 689 pg/mL (211-911)
[2019-07-22 12:36] LABS: Erythrocyte Sedimentation Rate < 1 mm/hr (0-15)
[2019-07-24 12:07] LABS: Testosterone, Free 10.94 ng/dL (5.00-21.00)
[2019-07-24 16:08] LABS: Testosterone, % Free 2.94 % (1.50-4.20); Testosterone, Total 372 ng/dL (264-916)
== END ==
PROVIDERS: PCP Family Medicine
DX: R53.83 Other fatigue (principal); M25.50 Pain in unspecified joint; R29.818 Other symptoms and signs involving the nervous system; R41.89 Other symptoms and signs involving cognitive functions and awareness
CPT/HCPCS: 36415; 82607; 83921; 84402; 84403; 85652; 86140

== ENCOUNTER → 2019-09-30 16:23 | Outpatient (CLI) | payer OTHER, SELFPAY ==
[2019-09-30 17:42] LABS: Hematocrit 45.1 % (40-54); Hemoglobin 14.9 g/dL (13.0-16.5); Mean Corpuscular Hgb 29.1 pg (27.0-32.0); Mean Corpuscular Volume 88.1 fL (80-94); Mean Platelet Vol. 10.6 fl (6.2-12.0); Platelet Count 241 K/mm3 (150-450); RBC Distribution Width SD 41.3 fl (35.1-43.9); Red Blood Count 5.12 M/mm3 (4.6-6.2); White Blood Count 7.3 K/mm3 (4.4-11.0)
[2019-09-30 18:03] LABS: Hemoglobin A1c 5.2 % (3.8-5.6)
[2019-09-30 18:06] LABS: Homocysteine 6.4 umol/L (3.2-10.7)
[2019-09-30 18:20] LABS: Progesterone Level 0.25 ng/mL (See Comment); Vitamin B12 928 pg/mL (211-911); Vitamin D,25 Hydroxy 30.3 ng/mL
[2019-09-30 19:02] LABS: ALB/GLOB Ratio 1.3 RATIO (0.9-2.4); AST(SGOT) 20 U/L (15-37); Alanine Aminotransfer ALT/SGPT 34 U/L (16-61); Albumin, Serum 4.2 g/dL (3.2-5.0); Alkaline Phosphatase 72 U/L (45-117); Anion Gap 5 (5-15); BUN 19 mg/dL (7-18); BUN/Creat Ratio 16.1 RATIO (10-20); CRP, High Sensitivity Cardiac 4.88 mg/L; Chloride 105 mmol/L (98-107); Cholesterol 195 mg/dL (200); Creatinine, Serum 1.18 mg/dL (0.70-1.30); EST Glomerular Filtration Rate 72 mL/min (>60); Est Glom Filt Rate - Afr Amer 87 mL/min (>60); Estradiol 27.7 pg/mL; Follicle Stimulating Hormone 3.3 mIU/mL; Free T3 3.2 pg/mL (2.18-3.98); Globulin 3.3 g/dL (2.2-4.2); Glucose 91 mg/dL (74-106); High Density Lipoprotein 43 mg/dL; Iron 56 ug/dL (65-175); Luteinizing Hormone 2.7 mIU/mL; Magnesium 2.1 mg/dL (1.6-2.6); PSA,Total - Annual Screen 0.16 ng/mL (0.00-4.00); Potassium 3.7 mmol/L (3.5-5.1); Prolactin 7.1 ng/mL; Protein, Total 7.5 g/dL (6.4-8.2); Sodium Level 139 mmol/L (136-145); T4 Total, Thyroxin 7.8 ug/dL (4.5-12.1); Triglycerides 133 mg/dL; Very Low Density Lipoprotein 27 mg/dL (5-40)
[2019-10-06 12:07] LABS: Testosterone, % Free 2.46 % (1.50-4.20); Testosterone, Free 8.34 ng/dL (5.00-21.00)
[2019-10-06 15:46] LABS: Insulin Like Growth Factor 225 ng/mL (84-270); Testosterone, Total 339 ng/dL (264-916)
== END ==
PROVIDERS: PCP Family Medicine; Referring Provider Nurse Practitioner Family; Visit Provider Nurse Practitioner Family
DX: R53.82 Chronic fatigue, unspecified (principal); M62.81 Muscle weakness (generalized); R68.82 Decreased libido
CPT/HCPCS: 36415; 80053; 80061; 82306; 82533; 82607; 82627; 82670; 82746; 83001; 83002; 83036; 83090; 83540; 83735; 84144; 84146; 84153; 84270; 84305; 84402; 84403; 84436; 84439; 84443; 84481; 85027; 86141; 82626; G0103

== ENCOUNTER 2019-12-15 09:00 | Outpatient (RCR) | payer OTHER, SELFPAY ==
--- NOTE | 2019-12-15 09:00 | BH.COMM ---
Communication Note - Communication with Client Communication Note: Met with pt to complete intial paperwork. No changes since pre-admission screening. Completed suicide risk assessment. Low Risk. Protective factors. Future-oriented.
--- NOTE | 2019-12-15 09:07 | BH.SGPN.GN ---
Behaviors/Verbalizations/Mental Status: []Client alert and oriented, neatly dressed and groomed. Eye contact good. Motor activity appropriate. Speech within normal limits. Affect unable to gather due to wearing a mask for COVID-19 protocol, mood anxious and agitated. Thoughts linear, logical, no signs of hallucinations or delusions. Reviewed client?s symptom tracker, no risk for suicidal ideation, plan, or intent as of 12/15/19. Client Response/Progress/Benefit: []Client responded well to session, receptive to feedback and engaged throughout. Client's first day of IOP and shared feeling anxious this morning. Client reported things have been a whirlwind for me recently and stated his anxiety has been increased. Client shared he goes through periods of high anxiety and then client crashes. Client reported during these crashes client feels depressed, isolates, and has a lot of negative thinking. Client shared he will often think his crashes makes his family depressed as well and then client blames himself. Connected with automatic negative thoughts and the group offered client support and advice. Client shared while he is in IOP, client would like to work on learning new coping skills, getting consistent sleep, finding an appropriate medication, and catching his symptoms early. Appeared to benefit from connecting with peers and normalizing his mental health symptoms. Will continue IOP tx to prevent decompensation, increase self-awareness, and improve mood stability. Narrative Note: []
--- NOTE | 2019-12-15 10:11 | BH.SGPN.GN ---
Behaviors/Verbalizations/Mental Status: []Client alert and oriented, casually dressed and appropriately groomed. Eye contact fair. Motor activity appropriate. Speech within normal limits. Affect could not be assessed due to pt wearing a mask as a requirement during COVID-19 pandemic. mood anxious. Thoughts linear, logical, no signs of hallucinations or delusions. Client Response/Progress/Benefit: []Client was an engaged participant AEB client providing input throughout discussion and appeared to listen attentively to others. Client connected with the topic of obstacles and solutions and worked with group to identify common obstacles that keep people stuck. Client shared current reality as feeling as if he is a lion on a hamster wheel which represents to him making no progress, being dangerous and unpredictable. Client reported for desired reality he wants to feeling more in control, stable, and ability to manage stressors more effectively. Identified barriers holding him back from desired reality to include: unwanted thoughts, delusional thoughts, anxiety, fear of failure, and out of control circumstances. Benefited from group as client was able to identify current and desired mental health state and increase awareness of how barriers can impact progress. Client's first day in IOP. Will continue IOP to increase healthy coping, challenge negative thoughts and prevent decompensation. Narrative Note: []
--- NOTE | 2019-12-15 11:10 | BH.SGPN.GN ---
Behaviors/Verbalizations/Mental Status: []Client alert and oriented, casually dressed and appropriately groomed. Eye contact good. Motor activity appropriate. Speech somewhat tangential. Affect unable to gather due to wearing a mask during the pandemic, mood anxious. Thoughts linear, logical, no signs of hallucinations or delusions. Client Response/Progress/Benefit: []Client was an active participant in group discussion and attentive during the activity. Engaged during activity and provided ideas on how to cope with internal barriers that keep clients stuck from moving towards goals. Barriers identified by client were: fatigue, fear of failure, avoiding thoughts, and control of situations. Group helped identify strategies to combat barriers identified by group members. Client reported he would like to work on overcoming the barrier of avoiding thoughts. Client shared he will do this by talking to his for support, ask for help when needed, and begin journaling thoughts. Benefited from group by identifying obstacles and solutions to desired reality. Progress was unable to be noted due to it being the first day of clients treatment. Will continue IOP tx to further prevent decompensation, increase awareness of coping skills, and monitor medications. Narrative Note: []
--- NOTE | 2019-12-16 10:42 | BH.NA ---
Physical Data - Vital Signs Pulse Rate: 82 Blood Pressure: 131/85 - Height/Weight Height: 1.8 m Weight:: 81.647 kg Weight in Pounds: 180.0 lbs Current Medication Compliance - Medication Compliance Do you take your medication as prescribed?: Yes Nutritional History - Appetite Nutritional Instructions:: If client shows signs of a swallowing problem, weight change of 10 pounds or more in the last month, or is on a diabetic diet, the physician will review and request a dietitian consult, as appropriate. All unintentional weight loss will be referred to the physician for decision on need for dietitian consult. Describe your appetite:: Fair Have you noticed a change in your eating habits lately?: No Functional Assessment - Sleep Pattern Describe any problems with sleeping: Client states sleep only recently became a problem. Client states he is sleeping 2-4 hours a night over the last week or so. - Activities Motor Activity:: Functional Sensory/Communication Assess - Communication Problems Do you have difficulty understanding what people are saying?: No What is your primary language?: Armenian Medical Problems/History - Neurological Conditions Neurological: Headaches, Other (See comments) Comments:: history of multiple concussions - Pain Assessment Do you have acute or chronic pain?: No Surgical History - Surgical History Have you had any surgeries? If so, list type and date:: Yes - right shoulder, lasik eye surgery Substance Abuse - Substance Abuse Please describe substance abuse in the last 30 days:: Client has a history of alcohol abuse. Client states he has been sober since July 2019. Client also states he was taking Xanax from April-July of 2019 and has not taken benzo medications since July. Client states when he was drinking alcohol, he had 6-8 drinks per night. He states I called it my cruise control. It kept me from feeling too depressed. Client denies tobacco or drug use. Client states he drinks 1 cup of coffee per day. Mental Status Summary - Mental Status Significant Findings/Observations on Appearance and Mood:: Client is alert and oriented x 4. Client is casually groomed with good hygiene. Client makes good eye contact. Client's speech has regular rate and volume. Client seems mildly depressed and anxious. Client is wearing a mask due to Covid19 pandemic. Client has normal processing. Client denies delusions or hallucinations at this time. Client denies SI. Suicide Assessment - Suicidal Ideation Suicidal Intentional Rating Scale (SIRS): Suicidal thoughts (past) - denies SI this date. Physician Notification: If Active suicidal thoughts/Will not contract for safety is checked, contact physician and document in the Physician Notification section below. Past Psychiatric History - MH Treatment Hx Past Psychiatric Medications:: Xanax Age of first mental health symptoms: Client states he recently was diagnosed with depression. Client states he was masking his symptoms before with alcohol use and now that he is sober, he is dealing with depression symptoms. Describe (age, circumstance, etc) any past hospitalizations: Client went through drug detox earlier this year in June, and a substance abuse program at [facility] in August 2019. Current providers for mental health treatment (counselor, psychiatrist, outpatient case manager, etc.): Client states he goes to [facility] weekly. Client states he had one therapy session at [facility]. Fall Risk Assessment - Age Age: Less than 60 - Mental Status Mental Status: Willing & able to ask for assistance when needed - Physical Status Physical Status: No problems - Impairments Impairments: None - Elimination Elimination: Continent AND independent - Gait or Balance Gait or Balance: Walks independently - Hx of Falls History of falls in the past 6 months: No known history - Medications/Substances Psychotropics:: Antidepressants, Stimulants Medications/substances used within the past 24 hours or ordered to administer: 1-2 of the medications/substances listed above - Total Score Total Points:: 1 RN Summary of Impressions - Impressions Recommendations: Include psychiatric and medical issues, treatment planning recommendations, and discharge planning needs. Impressions: Psychiatric Issues: Major depressive disorder, recurrent, severe without psychosis. Generalized anxiety disorder. Alcohol use disorder in remission. Benzodiazepine use disorder in remission. - Level of Care How do the client's current symptoms and functional deficits support need for this level of care?: Client states his depression and anxiety have worsened over the last few months. Client states he used to self-medicate for his mental health symptoms with alcohol, which he has been sober from since July 2019. Client also used Xanax from April-July of 2019. Client has been through substance abuse treatment and states he has no desire to drink. Client states he has been frustrated over the last few months that he has been working hard to improve mental health and feels worse. Client complains of feeling irritable, worthless, ruminating, poor concentration, and hopeless. Client states he is mentally and physcially exhausted from these symptoms not improving. Client states last week he was having fleeting suicidal thoughts with no plan, but denies all suicidal thoughts today. IOP will promote gains and prevent further decompensation while providing social support and skills training.
--- NOTE | 2019-12-16 11:14 | BH.SGPN.GN ---
Behaviors/Verbalizations/Mental Status: []Client alert and oriented, casually dressed and groomed. Eye contact fair. Motor activity appropriate. Speech within normal limits. Affect unable to gather due to client wearing a mask for the pandemic. Mood anxious. Thoughts linear, logical, no signs of hallucinations or delusions. Client Response/Progress/Benefit: []Client responded well to session as evidenced by client listening attentively to others and providing strategies during discussion. Client identified his warning signs for crisis and gained further awareness of earliest warning signs. Client used the warning signs: racing thoughts, negative thinking, sleeping less than usual, and lack of motivation to create his crisis plan. Client created a crisis action plan to help client better manage warning signs for crisis. Client?s plan included: reminding himself that thoughts are thoughts not facts, opposite action, DDD, reduce daily to-do list, ask for clarification, and meditation. Client reported creating a plan will help client ?realign my neurotransmitters? and make healthy coping skills more automatic. Client appeared to benefit from creating a crisis action plan and increasing self-awareness. Client?s second day of IOP tx. Client to continue IOP tx to prevent decompensation, monitor medications, and improve daily functioning. Narrative Note: []
[2019-12-16 11:19] VITALS: BP 131/85; PULSE 82
--- NOTE | 2019-12-16 12:20 | PCM.BH.PSYEV ---
Psychiatric Evaluation - Initial Evaluation Initial Evaluation: [] History of Present Illness: [] The patient is a 44-year-old female who is seen with his for the initial interview. He has a history of depression, alcohol and benzodiazepine dependence and possible ADD. Patient has been for 16 years and is seen with his . They live together with their 5 children who range in age from 4 years old up to 13 years old. 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 The patient does not have a certificate in accounting but he helps out with the business. Patient has a history of alcoholism and benzo though diazepam dependence and did residential treatment for addiction in July 2019. Following this he did an IOP for substance abuse a few months ago. He is currently seeing a substance abuse counselor at [facility] on a regular basis. He saw a psychiatrist on consult at [facility] recently and was diagnosed with attention deficit disorder and placed on Strattera. His symptoms have been worsening in the past few weeks although he has been sober for 4 months now from benzodiazepines and alcohol. His symptoms include intrusive thoughts that I am a burden and people would be better off without me. He endorses feeling hopeless, worthless and sometimes irritable. He is depressed and sad at times and this usually follows a period of increased anxiety and worry over something in his life. He is currently been isolating himself in his room for a few days last week. Her primary support he says he is not a talker. He denies any enjoyment in anything is doing now. He is exercising currently and eating healthfully and watching his caloric intake. 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 His appetite is been decreased but his weight is stable. His sleep has always been decreased however it did improve on 15 mg of Remeron for 3 months but then this affect wore off and it has been decreased for the last month or so. He has low energy during the day and describes severe decreases in concentration, attention and memory which have improved somewhat since starting Strattera 1 month ago. He endorses feeling guilty and admits to fleeting passive suicidal ideation. He denies any plan for suicide or any active suicidal ideation. He does admit to passive thoughts that he wound care if he . He denies homicidal ideation, hallucinations or delusions. He does describe a mild paranoia which consists of him feeling that people do not like him or they will not approve of something he does rather than out right delusional paranoia. He is a worrier by nature and always has been and he is ruminating negatively about everything he worries about. He also has periods of restlessness when he gets very anxious and agitated that he is anxious this is followed usually by becoming depressed when the anxiety subsides. He has no access to weapons or guns. He denies any history of self-harm, OCD, panic attacks, eating disorder, trauma or PTSD. Current Psychiatric Medications: [] Strattera 40 mg p.o. twice daily (x4 weeks); Remeron increased to 30 mg p.o. nightly 1 week ago (was on 15 mg nightly since July 2019); Vivitrol IM for alcohol abuse since August 2019. Vitamin D daily Past Psychiatric History: [] The patient has a history of being on the [facility] detox unit early in 2019 for benzodiazepine withdrawal and alcohol dependence. Following this he was sent to residential rehab followed by a substance abuse IOP program. He has no psychiatrist but he does have a substance abuse therapist at [facility] who he sees regularly. He has seen a psychiatrist for consult but has no regular psychiatrist. His past medications include gabapentin, trazodone, amitriptyline (which was awful); Celexa 40 mg, Seroquel, Xanax, Ativan, Ambien. When he was on most of these meds he was using alcohol and benzos at the time and so it is he is unsure as to what side effects were due to what substance. He first took medications for psychiatric reasons in January 2019. He quit using alcohol in January 2019 and he began having withdrawal and severe headaches and anxiety and so saw for medications for this. He had severe anxiety about 1 year ago with migraine headaches and started meds for this in April 2018. In September 2018 his anxiety and headaches increase in his sleep decrease. His headaches have resolved currently for the past few months. He has never had counseling other than his substance abuse counseling. He has had 2 MRIs of the brain during his substance abuse treatment and 2 neurological consults which were negative. Substance Use History: [] He first used alcohol at age 19. He began using alcohol heavily around age 27 when he was drinking 6-8 beers per night on a daily basis. He continue this for many years but then when he started using Xanax and like early 2018 when the Xanax quit working he increase his alcohol use to one fourth bottle of vodka per day in March 2019 but not every day. He has a history of blackouts and other from alcohol and went into detox one time since?see present illness. At one point he was on Xanax 9 mg p.o. daily total and he was then detoxed to 4 mg daily per. He has been off all Xanax and alcohol for 4 months now. He is only done rehab 1 time as described in the present illness. He denies any other drug use including marijuana and other substances. Allergies: [] No known allergies Medications: [] His current psych meds as dictated above plus vitamin D, testosterone, H CG for low testosterone Past Medical History: [] History of migraine headaches currently resolved, history of concussions, shoulder surgery. Otherwise negative and no other surgeries. Family Psychiatric History: [] Father is 68 and has diabetes and hypertension. His mother is 65 years old and is not sure of any health issues. The patient says his family does not talk about any health or mental health issues and pretends they do not exist. There are no diagnosed psychiatric issues in his family. His children have not been diagnosed with ADD. No suicides in the family. He has a maternal grandfather and uncles who are alcoholic. His but his paternal grandfather has anxiety. Personal/Social History: [] He was born and raised in [place]. His parents were and he describes his childhood as good. He has 1 younger sister 2 years younger than him and they are and were fairly close. The patient however describes that his father was very hard on him when he was growing up. He remembers always getting yelled at and he did not do well in school. The patient states that he was unable to focus at school and one fourth grade hit his grades dropped due to lack of organization. The patient was never tested for learning disability. His parents and teachers were quite mean to him and the patient really felt he was trying as hard as he could. The kids in school bullied him for being slow to read. He would study and no other material for test but would feel the tests for a while and gradeschool. He said his father worked a lot and he denies any physical, verbal or sexual abuse. His mother was loving. He graduated high school went to college in [place] and got a BA in [employer]. He at age 29 and has been for 16 years. They describe their marriage as okay. They say they are rather disconnected currently but they do not fight. They have 5 children age 4-13 who live with them. Legal History: [] No arrests. No . No DUIs. 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 Review of Systems: [] Some fatigue and occasional arm soreness but the patient is exercising heavily now. Vital Signs: [] Will be reviewed in nurse's notes. Mental Status Examination: [] Patient is a 44-year-old male who is seen with his and he and they are both wearing a mask due to the COVID pandemic. The patient appears fit and younger than stated age. He has no psychomotor agitation or retardation. He is casually dressed and groomed with good hygiene. He is cooperative during the interview. His eye contact is good and his speech is normal rate and rhythm and fluent with no pressure. His mood is depressed and anxious. Affect is constricted at times but full at other times. He does not appear visibly anxious but his says today is a good day. Thought process is goal-directed and organized. Thought content: There is evidence of fleeting passive suicidal ideation with no plan. There is evidence of passive thoughts that he would not care if he . No evidence of active suicidal ideation, homicidal ideation, hallucinations or delusions. No evidence of reyna symptoms. Reality testing is intact. Impulsivity is low to moderate. Insight is good. Judgment is intact. Diagnoses: [] Sumter I: [] Major depressive disorder, recurrent, severe without psychosis; generalized anxiety disorder; alcohol use disorder in remission and on the Vivitrol; benzodiazepine use disorder in remission x 4 mos Sumter II: [] Deferred Sumter III: [] History of migraine headaches, rule out rebound headaches in the past Sumter IV: [] Primary support, work issues Plan: [] The patient will start the IOP program in behavioral health at [facility] as the structure, support, education, individual and group therapy will hopefully prevent worsening of the patient's symptoms that might require hospitalization. He felt safe during the interview and if at any time he does not feel safe he will let us know or go to the emergency room. The risks, options, possible complications and side effects of the medication were discussed with the patient and he understands and accepts these. He has had a sleep study in the past but he was unable to sleep enough to get a good study. says he does not snore. He has a history of putting tension in his neck and jaw so if his sleep does not improve with Seroquel he may add Flexeril later. The patient wishes to come off his vivid trial because he feels that he could be sober without the medication. He has no cravings whatsoever. He is going to talk with his substance abuse doctor about coming off of the IM Vivitrol. He feels it may be contributing to his depression. He will continue his Remeron at 30 mg p.o. nightly. He wishes to continue his Strattera as he has 90 days of it so he will continue this at the current dose. In addition the patient will add Seroquel 25 mg and he will take 25 mg p.o. nightly. He will then increase this if needed to see at what dose he improves his sleep. When the patient was on Seroquel prior he was using drugs and/or in detox so we do not know how will affect him pressure. Options to consider later which I did discuss with them was adding Effexor XR and discontinuing Strattera. Another option is to add Abilify 2 mg p.o. every morning or a low dose of Zyprexa to help with anxiety during the day. His Remeron was only increased 1 week ago so we could go up on that later also. I will see the patient in 1 week for follow-up. In addition I ordered lab tests for a urinary or serum metanephrine to rule out a pheochromocytoma. The patient and his understand that is most likely that he does not have 1 and they are extremely rare but I think it should be ruled out.
--- NOTE | 2019-12-16 12:40 | BH.DR.ITP ---
Initial Treatment Plan - Patient Information Visit Information: ADMISSION DATE: EXPECTED LOS: 4-6 weeks - Problems/Symptoms Problem #1:: Anxiety Symptom:: Ruminations, worry, restlessness, avoidance Problem #2:: Depression Symptom:: Sadness, hopelessness, worthlessness, irritable,decreased concentration, fleeting passive suicidal ideation Problem #3:: biological disruption of sleep
--- NOTE | 2019-12-16 15:35 | BH.MTP ---
[facility] Treatment Plan - Patient Information Program Physician:: Dr. Ledy Pro Primary Therapist:: ISRAEL Sykes - Psychiatric Diagnoses Psychiatric Diagnoses:: Major depressive disorder, recurrent, severe without psychosis; generalized anxiety disorder; alcohol use disorder in remission and on the Vivitrol; benzodiazepine use disorder in remission x 4 mos Diagnosis Code(s):: F 33.2 - Estimated LOS Estimated LOS (in weeks):: 6 Problem/Goal #1 - Problem/Goal #1 Stated Goal:: Client will reduce depressive symptoms including worthlessness, lack of concentration, irritability, and negative core beliefs associated with major depressive disorder. Description of Barriers: Client has a history of substance abuse which has impacted ability to regulate emotions and resulted in increased restlessness as well as difficulties with sleep. Client additionally reports a hx of low self-esteem, paranoia that the universe is actively working to make his life more difficutly, and difficulty giving himself credit for things. Client reports increased difficulties in managing his emotions and extreme difficult with change which has recently resulted in increased relationship tension. Functional Impact: Client is a 44-year-old male who has a history of depression, anxiety, alcohol and benzodiazepine dependence, and possible ADD. Patient has been sober for 4 month following completion of residential substance use treatment in August 2019 and substance specific IOP tx at [facility]. Client is currently working with a therapist at [facility] for ongoing substance use counseling and has a psychiatrist on consult at [facility]. Client was referred to [facility]?s IOP program due to worsening mental health symptoms over the past two months. Client reports that he has been struggling with increased distorted thinking patterns and noted often experiencing thoughts of ?everyone would be better off without me? or ?I am a burden?. Client reports passive thoughts of though denies any active SI, plan, or intent. At time of admission, Client reports his primary symptoms to include intrusive thoughts, feeling hopeless, worthless and increasing depression and isolation. Additionally, notes reduced sleep, irritability, relationship tension, increased worry, reduced concentration, emotional numbness, anhedonia, and poor memory. Reports his only means for coping right now is exercise and that nothing else seems enjoyable. He denies homicidal ideation, hallucinations or delusions. He does describe a mild paranoia which consists of him feeling that people do not like him or they will not approve of something he does. Client's symptoms are causing significant impairment in client's social, occupational, and family functioning. Goal Relevant Strengths/Supports: Client presents as a kind, amiable, and motivated to improve his mental health symptoms. Client is connected with outpatient counseling and psychiatry services. Client reports support from his and identifies his friends as supportive as well. Client is currently 4 month sober and has had some experience with IOP counseling through substance use recovery. Client is knowledgeable of some coping skills and willing to learn alternative ways to manage mental health symptoms. - Objectives Objective #1 Stated Objective: Client will identify and replace 2-3 negative thinking patterns that reinforce depressive symptoms, result in increased isolation, self-deprication, and paranoid thoughts that others don't like him. Interventions: Through groups and individual therapy, client will be provided with education on cognitive distortions, mistaken beliefs, and identifying and combating negative self-talk. Therapist will assist client in recognizing triggers for increased self-deprecating and depressive thought patterns. Therapist will help client explore connection between thoughts, feelings, and actions and help client reframe depressive thought patterns. Therapist will help client gain awareness of why client has developed negative thoughts and core beliefs of self and teach client how to reframe these thoughts and implement more self-compassionate approaches with himself. Discharge Criteria: Client will have accomplished this goal when client can identify and replace at least 2 negative thinking patterns with more realistic, positive statements. Target Date: 01/27/20 Review Date: 01/13/20 Objective #2 Stated Objective: Client will learn and utilize 2-3 healthy coping strategies to manage depressive symptoms and irritability as shown by reduced DSM-5 cross-cutting symptom measure score. Interventions: Through group and individual sessions, therapist will assist client in learning internal coping strategies to manage depressive symptoms and irritability, along with helping client identify triggers. Therapist will teach client about self-compassion, self-care, emotion regulation, and personal resilience factors and how they can benefit the healing process. Discharge Criteria: Client will have achieved this goal when his DSM-5 symptoms for depression and irritability have decreased and he can verbalize and has practiced at least 2 healthy coping strategies. Target Date: 01/27/20 Review Date: 01/13/20 Problem/Goal #2 - Problem/Goal #2 Stated Goal:: Client will reduce overall frequency, intensity, and duration of anxiety to improve both daily functioning and sleep health. Description of Barriers: Client has a history of substance abuse which has impacted ability to regulate emotions and resulted in increased restlessness as well as difficulties with sleep. Client additionally reports a hx of low self-esteem, paranoia that the universe is actively working to make his life more difficutly, and difficulty giving himself credit for things. Client reports increased difficulties in managing his emotions and extreme difficult with change which has recently resulted in increased relationship tension. Functional Impact: Client is a 44-year-old male who has a history of depression, anxiety, alcohol and benzodiazepine dependence, and possible ADD. Patient has been sober for 4 month following completion of residential substance use treatment in August 2019 and substance specific IOP tx at [facility]. Client is currently working with a therapist at [facility] for ongoing substance use counseling and has a psychiatrist on consult at [facility]. Client was referred to [facility]?s IOP program due to worsening mental health symptoms over the past two months. Client reports that he has been struggling with increased distorted thinking patterns and noted often experiencing thoughts of ?everyone would be better off without me? or ?I am a burden?. Client reports passive thoughts of though denies any active SI, plan, or intent. At time of admission, Client reports his primary symptoms to include intrusive thoughts, feeling hopeless, worthless and increasing depression and isolation. Additionally, notes reduced sleep, irritability, relationship tension, increased worry, reduced concentration, emotional numbness, anhedonia, and poor memory. Reports his only means for coping right now is exercise and that nothing else seems enjoyable. He denies homicidal ideation, hallucinations or delusions. He does describe a mild paranoia which consists of him feeling that people do not like him or they will not approve of something he does. Client's symptoms are causing significant impairment in client's social, occupational, and family functioning. Goal Relevant Strengths/Supports: Client presents as a kind, amiable, and motivated to improve his mental health symptoms. Client is connected with outpatient counseling and psychiatry services. Client reports support from his and identifies his friends as supportive as well. Client is currently 4 month sober and has had some experience with IOP counseling through substance use recovery. Client is knowledgeable of some coping skills and willing to learn alternative ways to manage mental health symptoms. - Objectives Objective #1 Stated Objective: Client will identify 2-3 cognitive distortions or mistaken beliefs that lead to rumination and learn 2-3 ways to manage these thoughts to reduce anxiety. Interventions: Therapist will provide education on the most common cognitive distortions and teach client the connection between thoughts, emotions, and feelings. Therapist will assist client in identifying, challenging, and replacing dysfunctional thoughts with positive, more realistic thoughts. Therapist will use CBT and DBT techniques to help client gain awareness of thinking errors and learn how to more effectively handle negative thoughts. Therapist will also help client increase his distress tolerance skills. Discharge Criteria: client will have accomplished this goal when can identify at least 2 cognitive distortions and at least 2 coping skills to manage negative thoughts. Target Date: 01/27/20 Review Date: 01/13/20 Objective #2 Stated Objective: lient will identify 2-3 anxiety triggers and 2 calming coping skills to reduce anxiety as shown by decreased DSM-5 cross cutting symptom measure scores as well as improve ability to relax at night in order to receive better overall quality of sleep. Interventions: Therapist will help client increase awareness of anxiety triggers and educate client on the ways anxiety impacts overall health and sleep. Therapist will teach client various calming and mindfulness strategies to promote emotional regulation, improve sleep hygiene, and reduction of anxiety. Therapist will encourage client to implement healthy coping skills on a regular basis. Discharge Criteria: Client will have accomplished this goal when can report at least 2 triggers for anxiety and 2 calming strategies to manage symptoms. Additionally, client will have accomplished this goal when he can report reduced DSM-5 cross cutting symptoms for anxiety and sleep.
--- NOTE | 2019-12-16 16:07 | BH.MDN ---
Multi-Disciplinary Note - Note 45-min Individual Time Started:: 12:10 Date: 12/16/19 Purpose of session/treatment goals addressed:: The purpose of this session was to gather information on client's current stressors, symptoms, and treatment goals while in IOP program. Another goal was to build rapport and provide psychoeducation. Eye Contact:: Good Motor Activity:: Appropriate Appearance:: Neat, Casual Speech:: Pressured Mood:: Anxious, Depressed Affect:: Other - unable to assess as client wearing mask per COVID-19 protocol Thoughts:: Linear, Logical, No evidence of hallucinations/delusions noted Staff Interventions:: Therapist used active listening and open-ended questions to explore client's current stressors, symptoms, mental health related history, and treatment goals. Therapist used components of strengths perspective to build rapport and provide emotional support. Therapist provided psychoeducation on impact of substance use on mental health, as well as discussed anxiety and depressive maintenance cycles. Therapist gave client encouragement and normalized his difficulties in regulating his anxiety and emotions since becoming sober 5 months ago. Therapist gave client homework to identify his common anxiety and depression triggers as well as ways in which he is currently coping with these emotions. Client Response:: Client responded well to session, open to meeting with therapist. Client reported he has been struggling with managing his mental health over the past few months. Attributes this in part to recent sobriety from alcohol and benzodiazepines in August of this year. Client shared he had been drinking 6-8 beers/night for the past 15 years until completing residential treatment in July. Client has additionally completed the substance use IOP program at [facility] and is currently receiving individual substance use counseling at [facility] as well. Reports that since completing treatment he has been struggling with increased apathy, feelings of disconnect from his family, lack of enjoyment in daily activities, and increased isolation. Reports he often isolates from his family when struggling with increased irritability or thoughts of ?I?m a burden? or ?I?m causing harm to my family?. Reports that his has been trying to be supportive but that she is ?burnt out? and has recently been struggling with patience as client continues to struggle to manage mental health symptoms. Client shared he currently uses the gym as his primary means of going, noting that he goes 5-6 days a week and completes a heavy lifting routine. Reported that this has been helpful but that his is concerned he is ?replacing drinking with working out?. Expressed that he often schedules time in the evening for relaxation but is struggling to be able to relax during set aside times. Reports feeling on edge and restless during his downtime and often begins experiencing increased rumination as a result. Client expressed he would like to work on being able to ?slow down? and not feel so restless during times of relaxation, improve his ability to feel connected and present with his family, as well as better manage his emotions when feeling irritable or depressed. Client struggled to identify coping skills that have helped in the past. Client receptive to homework given by therapist. Risks/Concerns:: Client denies having suicidal ideations, plans, or intent as of 12/16/19. Client reports ability to maintain safety and is future oriented. Progress Toward Goals/Plan:: Client's first week of IOP and therefore no progress to report. He appears to be doing well to connect with peers and engage in group sessions. Client endorses a depressed mood, ruminations, panic attacks, racing thoughts, increased agitation, isolation, increased apathy and disconnection, and an inability to function at his baseline. Client worries that his depression and anxiety will keep her from effectively parenting, continue to impact his relationship, and further impact his ability to complete daily tasks. Will continue IOP tx to prevent decompensation, evaluate current medications, improve daily functioning, and reduce intensity of anxiety. Time Stopped:: 12:50
--- NOTE | 2019-12-21 09:05 | BH.SGPN.GN ---
Behaviors/Verbalizations/Mental Status: []Client alert and oriented, casual dress, hygiene tended to. Eye contact fair. Motor activity tense. Speech within normal limits. Affect constricted, mood dysthymic and agitated. Thoughts linear, logical, no signs of hallucinations or delusions. Reviewed client?s symptom tracker, pt denies current suicidal thoughts or intention to date. Client Response/Progress/Benefit: []Pt responded well to session AEB pt listening attentively to others and sharing thoughts and feelings. Pt stated his weekend went from okay to terrible. Pt explained that he tried to not isolate yesterday and sat in the living room. Pt reported he was trying to watch something but his family was talking loudly in the other room. Pt stated he told them to shh which set off his and caused a big conflict. Pt reported he became frustrated with himself that the one time he tries not to isolate he messes up with his family. Pt expressed frustration with using skills like meditation, listening to music, exercise, journaling and reading but nothing seems to work. Pt seemed to benefit from support from peers, validating his frustrations and group helping challenge his distortions. Pt to continue IOP to increase healthy coping, challenge distorted thoughts, and prevent decompensation. Narrative Note: []
--- NOTE | 2019-12-21 10:14 | BH.SGPN.GN ---
Behaviors/Verbalizations/Mental Status: []Client alert and oriented, neatly dressed and groomed. Eye contact good. Motor activity appropriate. Speech within normal limits. Affect unable to gather due to wearing a mask for COVID-19 protocol, mood depressed. Thoughts linear, logical, no signs of hallucinations or delusions. Client Response/Progress/Benefit: []Client was an active participant in group discussion and was engaged in group. Client discussed the quote and stated, ?life is always going to happen, what we do with our time determines growth.? Client stated different forces in life can help people develop their character. Group discussed and then identified forces that can impact growth and overall mental health. Client worked with peers to identify and define internal and external forces in mental health and their role in growth. Client gave examples of toxic people, adverse experiences, coping skills, and thought patterns during group psychoeducation on examples and impact of negative/positive internal and external forces. Progress noted in client?s self-report of increased self-awareness, but client continues to struggle with negative thinking and sitting with uncomfortable feelings. Will continue in IOP to prevent decompensation, increase distress tolerance skills, and reduce negative thinking. Narrative Note: []
--- NOTE | 2019-12-21 11:15 | BH.SGPN.GN ---
Behaviors/Verbalizations/Mental Status: [] Eye contact is good. Motor activity is appropriate. Appearance is neat and casual. Speech is Appropriate. Mood is anxious, dysthymic. Affect unable to assess as client wearing a mask per COVID-19 protocol. Thoughts are linear and logical. No evidence of psychosis. Client Response/Progress/Benefit: [] Pt receptive of session, actively engaged in activity AEB providing support and giving ideas to group. Worked with group to process the challenge activity and did well to relate this back to daily life. Pt identified personal negative forces impacting mental health progress to include: negative thoughts, his family?s pressure, expectations for himself, poor sleep, and medication issues. Group then worked together to identify common positive forces in activity and life which help us grow. Pt identified personal positive forces to include: exercise, prayer, counseling, and his friends. Pt was attentive during psychoeducation and appeared to benefit from increased insight on the impact of negative and positive forces on mental wellness. Identified wanting to reduce negative perspective as a force in his life by practicing thought challenging, opposite action, and positive self-encouragement more consistently. Progress noted in increased engagement and ability to identify both barriers and supports impacting mental health progress. Pt recommended continued IOP tx to make gains, improve emotion regulation, reduce anxiety, and continue to work on challenging thought distortions. Narrative Note: []
--- NOTE | 2019-12-22 09:05 | BH.SGPN.GN ---
Behaviors/Verbalizations/Mental Status: []Client alert and oriented, neatly dressed and groomed. Eye contact good. Motor activity appropriate. Speech within normal limits. Affect unable to gather due to wearing a mask for COVID-19 protocol, mood slightly anxious, euthymic. Thoughts linear, logical, no signs of hallucinations or delusions. Reviewed client?s symptom tracker, no risk for suicidal ideation, plan, or intent as of 12/22/19. Client Response/Progress/Benefit: []Client responded well to session, attentive and receptive to feedback. Client reports feeling rested and motivated this morning after finally getting sleep last night. Client shared his sleep tends to be variable, cycling from no sleep for 4-5 days then getting one night of sleep. Client continues to feel frustrated with his difficulty sleeping and is trying different approaches to improve sleep. Client shared he practiced mindfulness yesterday for 20 minutes before his football practice which helped ground client in the moment. Client shared he has been struggling with distorted thinking and shared it's like I don't know what to believe because of my distortions. Client stated his distorted thinking has been impacting his mental health, relationship with family, and decision-making skills about treatment. 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 Client self-identified as a perfectionist and shared this makes it difficult to accept the slow tempo of progress. Client reported he plans to continue sitting with the uncomfortable and keep the course for treatment. Appeared to benefit from challenging perspective in the moment and practicing self-compassion. Will continue IOP tx to prevent decompensation, improve healthy coping skills to combat distortions, and improve functioning. Narrative Note: []
--- NOTE | 2019-12-22 10:15 | BH.SGPN.GN ---
Behaviors/Verbalizations/Mental Status: []Client alert and oriented, casually dressed and appropriately groomed. Eye contact fair. Motor activity tense. Speech within normal limits. Affect could not be assessed due to pt wearing a mask as a requirement during COVID-19 pandemic. Mood depressed and anxious. Thoughts linear, logical, no signs of hallucinations or delusions. Client Response/Progress/Benefit: []Pt receptive to session, provided input throughout discussion and listened attentively to peers. Provided input as the group brainstormed the positive and negative aspects of stress on physical and mental health. Group did well to identify that the benefits of stress include: motivates us, heightened senses/focus, increased productivity, and keeps us safe. Client identified his current stressors that impact him the most include: lack of sleep, things out of his control, chaos, and change in routine. Pt reported when he has elevated stress he usually is more irritable, agitated, and explosive. Seemed to benefit from increased awareness of personal stressors and understanding impact of stress of the mind and body. Recommend to continue IOP tx to increase healthy coping skills, set realistic expectations, and prevent decompensation. Narrative Note: []
--- NOTE | 2019-12-22 11:17 | BH.SGPN.GN ---
Behaviors/Verbalizations/Mental Status: [] Client alert and oriented, neat and casually dressed and groomed. Eye contact fair to good. Motor activity appropriate. Speech within normal limits. Affect unable to gather due to wearing a mask for COVID-19 protocol, mood depressed, anxious. Thoughts linear, logical, no signs of hallucinations or delusions. Client Response/Progress/Benefit: [] Client engaged participant in session AEB client listening attentively to others and taking notes during session, more passive than in prior sessions. Client actively listening during discussion about the 4 A's of managing stress and continued to take notes throughout. Noted that he has struggled with acceptance in the past, specifically when plans are changed or he feels out of control in a situation. Identified he wants to work on managing his ability to cope with the chaos by practicing more acceptance for moments when plans are changed or don?t go exactly as expected. Indicated positive self-talk and taking breaks in order to reduce feelings of being overwhelmed. Client seemed to benefit from increased awareness of the impact of stress on mental health and increasing repertoire of stress management strategies. Will continue IOP tx to promote use of healthy coping skills, improve mood management, maintain sobriety, as well as prevent decompensation. Narrative Note: []
--- NOTE | 2019-12-22 12:04 | BH.MDN ---
Multi-Disciplinary Note - Note 45-min Individual Time Started:: 12:22 Date: 12/22/19 Purpose of session/treatment goals addressed:: The purpose of this session was to address current symptoms, stressors, and difficulties in readjusting to managing anxieties while maintaining a sober lifestyle. Other topics included: expectations, common symptoms post initial sobriety, and midfulness. Eye Contact:: Good Motor Activity:: Appropriate Appearance:: Neat, Casual Speech:: Appropriate Mood:: Anxious, Dysthymic Affect:: Congruent, Other - difficult to assess as pt wearing mask per COVID-19 protocol Thoughts:: Linear, Logical, No evidence of hallucinations/delusions noted Staff Interventions:: Therapist used active listening and open-ended questions to explore client's current stressors, symptoms, and thoughts impacting ability to regulate his emotions. Therapist provided psychoeducation on the impact of substance use on mental health and discussed common mental health symptoms associated with early sobriety. Provided validation and normalized client difficulties with mood regulation an sleep. Therapist used cognitive restructuring to help client identify and challenge distorted thoughts reinforcing depression and anxiety. Therapist provided psychoeducation on mindfulness as a means of emotion regulation and discussed differences between taking a break to self-regulate and isolation. Therapist gave client homework to engage in mindfulness activities via grounding and using the 5-senses skill to promote emotion regulation. Client Response:: Client responded well to session, open to meeting with therapist. Client reported he is glad he decided to do the IOP program as he feels it has been beneficial in improving his insight and awareness of potential barriers impacting his mental health. Discussed ?it?s been like a rollercoaster?, indicating that he has been spending a lot of time in self-reflection outside of the treatment environment. Client noted this is both beneficial and at times overwhelming as he is beginning to realize the amount his distorted thoughts are impacting his mental health. Discussed ongoing struggles with personalization, mind reading, and jumping to conclusions. Shared that since becoming sober in August he has noticed an influx in self-deprecating thoughts and beliefs that he is a burden to others. 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 Client did well in session to work with therapist on identifying the distortions and challenge these thoughts; however, reports significant difficulties in doing so on his own. Indicated these types of thoughts often result in increased anxiety, feelings of worthlessness, and depression. Client noted he made an effort to incorporate more mindfulness in his daily routine yesterday and completed a mindful nature walk at the start of football warm-ups. Reports that he felt an increased sense of calm by allowing himself to take a few moments to just enjoy his surroundings rather than focus on everything he has going on. Expressed feeling more regulated as a result. Client was receptive of discussion on the benefits of mindfulness on mental health and addiction recovery, specifically in the areas of emotion regulation. Discussed continuing to struggle significantly with irritability, poor sleep, and lack of concentration. Receptive of homework reviewing common mental health changes throughout the substance use recovery process. Risks/Concerns:: Client denies any suicidal ideations, plan, or intent as of 12/22/19. Future oriented and multiple protective factors. 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 Client reports continued struggles with increased anxiety and feeling easily overwhelmed/over stimulated. Expressed that this often results in increased irritability and has impacted his ability to communicate effectively with his . Continues to report frequently isolating to prevent being around family when irritable and continues to struggle with distortions which reinforce anxiety and depression. Will continue IOP tx to prevent decompensation of symptoms, increase emotion regulation, maintain sobriety, and improve daily functioning. Time Stopped:: 13:03
--- NOTE | 2019-12-23 10:10 | BH.SGPN.GN ---
Behaviors/Verbalizations/Mental Status: []Client alert and oriented, neatly dressed and groomed. Eye contact good. Motor activity appropriate. Speech within normal limits. Affect unable to gather due to wearing a mask for COVID-19 protocol, mood dysthymic. Thoughts linear, logical, no signs of hallucinations or delusions. Client Response/Progress/Benefit: []Client attentive and providing input to discussion. Contributed during discussion on the quote connecting with impact thoughts can have on mood and behavior. Connected with the discussion about how distorted thought patterns can reinforce mental health symptoms and negatively impact self-esteem and personal relationships. Client attentive throughout the discussion on different types of thought distortions and noted that he connected with all or nothing, catastrophizing and predicting the future distortions. Client stated he has been told that I will things to happen. Client explained he will predict something bad is going to happen which he now recognizes leads to a self-fulfilling prophecy. Appeared to benefit from increasing awareness of cognitive distortions and how they can impact emotions and behaviors. Will continue IOP tx to prevent decompensation, decrease unrealistic expectations of self, and increase healthy coping skills. Narrative Note: []
--- NOTE | 2019-12-28 09:05 | BH.SGPN.GN ---
Behaviors/Verbalizations/Mental Status: []Client alert and oriented, casually dressed. Eye contact good. Motor activity appropriate. Speech within normal limits. Affect unable to gather due to wearing a mask for COVID-19 protocol, mood euthymic. Thoughts linear, logical, no signs of hallucinations or delusions. Reviewed client?s symptom tracker, no risk for suicidal ideation, plan, or intent as of 12/28/19. Client Response/Progress/Benefit: []Client responded well to session, attentive and engaged throughout session. The client?s goal was to change his negative thoughts and behaviors. Client pushed himself over the weekend by maintaining patience using thought challenging, reflecting on personal wins, thought reframing, and increased communication skills. Client had a busy weekend of activities spent with his family. Client felt some anxiety through his weekend and caught his negative thoughts as soon as he stated out loud ?Can life get any worse?? Client recognized the thought and then said, ?Why did I say that?? Client shared that his has been very supportive recently, and that his new medication has increased his ability to sleep throughout the night and noted that ?he slept well for three nights in a row.? Client stated that he does not want to give the medicine too much credit, but the impact is good. Client said he took his daughter on a walk through the country and he was able to use the 5 senses coping skills on his walk. Client benefited from group today as he was able to reflect on his weekend with a positive attitude and recognized the application of skills. Client will further IOP to prevent decompensation, reduce distortions, and increase the use of coping skills. Narrative Note: []
--- NOTE | 2019-12-28 10:24 | BH.SGPN.GN ---
Behaviors/Verbalizations/Mental Status: []Client alert and oriented, casually dressed and groomed. Eye contact good. Motor activity appropriate. Speech within normal limits. Affect unable to gather due to wearing a mask due to pandemic, mood euthymic and anxious. Thoughts linear, logical, no signs of hallucinations or delusions. Client Response/Progress/Benefit: []Client active participant AEB client providing input to discussion and listening attentively to peers. Group identified the benefits of having a support system such as: accountability, increased self-esteem, gain perspective, and ?knowing you?re cared for.? Client discussed different types of support, and stated his family is part of his support system. Group also discussed the barriers to accessing support and client shared he struggles with communicating needs. Seemed to benefit from increased awareness of different supports available and identifying benefits of social support. Progress noted in client?s increased awareness and application of coping skills. Will continue IOP tx as client continues to struggle with managing anxiety and can improve communication skills. Narrative Note: []
--- NOTE | 2019-12-28 11:20 | BH.SGPN.GN ---
Behaviors/Verbalizations/Mental Status: []Client alert and oriented, casually dressed and appropriately groomed. Eye contact good. Motor activity appropriate. Speech within normal limits. Affect could not be assessed due to pt wearing a mask as a requirement of the COVID-19 pandemic. mood dysthymic. Thoughts linear, logical, no signs of hallucinations or delusions. Client Response/Progress/Benefit: []Client an active participant AEB contributing to discussion and taking notes throughout. Client participated in group discussion about the different types of support and benefits different support can provide. Client stated he is good at getting informational support by reaching out to others for additional resources or information about a practical problem. Pt identified he would like to increase social support because he struggles with spending quality time with his family due to isolating. Client reported one step to increase social support by accepting help, increase physical connection with others, and increase interaction with interaction with his family. Client seemed to benefit from identifying a type of support she would like to improve upon and brainstorming small steps to take in order to successfully do so. Client to continue IOP tx to stabilize moods, improve healthy coping skills, and prevent decompensation. Narrative Note: []
--- NOTE | 2019-12-29 09:00 | BH.SGPN.GN ---
Behaviors/Verbalizations/Mental Status: [] Eye contact is good. Motor activity is appropriate. Appearance is neat. Speech is Appropriate. Mood is anxious. Affect is congruent. Thoughts are linear and logical. No evidence of psychosis. Reviewed daily check in sheet and no reports of suicidal ideations or intent. Client Response/Progress/Benefit: [] Pt was an active participant in group discussion. Emotion for today is anxious. Pt shared with the group his goal from yesterday was to increase communication with . Insight that he struggles with being vulnerable and opening up about his current thoughts. Able to identify how this can negatively impact relationships. Spoke with and was open regarding his thoughts and emotions. States that this went well and actually brought them closer. They had a lengthy discussion and they were able to clarify some misconceptions and perceptions. Pt states that his initial urge to suppress and isolate has been a habit for many years stating and it has not helped. Notes a decrease in his depressive thoughts however anxiety continues to be fairly constant. Progress noted per pt report. Benefited from group support, encouragement, and feedback. Will continue in IOP to prevent decompensation, improve functioning, and stabilize mood. Narrative Note: []
--- NOTE | 2019-12-29 10:17 | BH.SGPN.GN ---
Behaviors/Verbalizations/Mental Status: []Client alert and oriented, neatly dressed and groomed. Eye contact good. Motor activity appropriate. Speech within normal limits. Affect unable to gather due to wearing a mask for COVID-19 protocol, mood anxious. Thoughts linear, logical, no signs of hallucinations or delusions. Client Response/Progress/Benefit: []Client responded well to session, attentive and engaged throughout discussion and activity. Client appeared to connect with the topic of fear of failure. Client reported he also has fear of success and stated. ?it?s almost like society frowns on success and tries to bring you down.? Client connected with the concept that mindset is powerful in determining how a person moves forward after failing. Client shared ?when we are weak, we are strong? and that even though it is scary to be vulnerable, that is how people grow. Group reported fear of failure can lead to depression, quitting, low self-esteem, and staying stuck. Client stated although failure initially is difficult to overcome, client reports that one can challenge their perspective and get better at navigating vulnerable situations such as failure. Client appeared to benefit from gaining awareness of the impact of fear of failure can have on one?s mental health and wellbeing. Progress noted in client?s report of practicing sitting with the uncomfortable. Will continue IOP tx to reduce anxiety, improve daily functioning, and further decrease depressive symptoms. Narrative Note: []
--- NOTE | 2019-12-29 11:15 | BH.SGPN.GN ---
Behaviors/Verbalizations/Mental Status: []Client alert and oriented, neat and casual appearance. Eye contact good. Motor activity appropriate. Speech within normal limits. Affect unable to gather due to wearing a mask for COVID-19 protocol, mood anxious and dysthymic. Thoughts linear, logical, no signs of hallucinations or delusions. Client Response/Progress/Benefit: []Client responded well to session, engaged during the group activity and actively participating throughout processing discussion. Client completed the fear of failure worksheet and reported that fear of failure has kept client from communicating with others and believing in himself in the past. Client able to identify barriers that reinforce his fear of failure which included: negative self-talk, toxic people, fear of other?s reactions, fear of success, and focusing on past setbacks. Client attentive during discussion of the different strategies to help overcome fear of failure. Group identified strategies such as: opposite action, planning ahead, remembering motivation to try in the first place, willing to be more flexible, and self-care. Client reported past failures have taught client that ?failure can open new doors and make us stronger. It can build resilience.? Client appeared to benefit from learning ways to overcome fear of failure. Will continue IOP tx to reinforce healthy coping skills, continue to improve ability to challenge thought distortions, and reduce depression. Narrative Note: []
--- NOTE | 2019-12-30 09:05 | BH.SGPN.GN ---
Behaviors/Verbalizations/Mental Status: []Client alert and oriented, casually dressed and appropriately groomed. Eye contact good. Motor activity tense. Speech within normal limits. Affect could not be assessed due to pt wearing a mask as a requirement of the COVID-19 pandemic. mood slightly agitated. Thoughts linear, logical, no signs of hallucinations or delusions. Client Response/Progress/Benefit: []Pt responded well to session AEB pt listening attentively to peers and openly sharing thoughts and feelings. Patient stated yesterday he had his day planned out to the minute however while completing 1 of his goals before going to football practice he had a unexpected stressor which required him to take longer and potentially be late for practice. Patient reported as soon as his schedule was disrupted he became agitated irritable and tense. 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 Patient reported he pulled the full players into a huddle and expressed that he was feeling grumpy so was asking them to listen and less playing around. Patient stated football practice went well after he was able to ground himself and expresses feelings to the team. Progress noted with patient utilizing healthy coping skill and communicating thoughts and feelings to others. Patient to continue IOP level of care to increase calming skills, decrease anger and agitation, and prevent decompensation. Narrative Note: []
--- NOTE | 2019-12-30 10:15 | BH.SGPN.GN ---
Behaviors/Verbalizations/Mental Status: [] Eye contact is good. Motor activity is appropriate. Appearance is neat. Speech is Appropriate. Mood is anxious. Affect is congruent. Thoughts are linear and logical. No evidence of psychosis. Client Response/Progress/Benefit: [] Client responded well to session, engaged and participating in group discussion. Client connected with the quote and discussed the difference between ruminating and reflecting for growth with group members. Client helped group identify the importance of change. Group also identified barriers keeping clients from changing. Participated in the discussion and psychoeducation on the different zones of change. Client reported he has struggled to get out of his comfort zone in the past which has hindered progress. Client described his comfort zone as ?tension and isolation? which keep him from spending time with others and building relationships. Appeared to benefit from gaining awareness of the benefits of change as well as the different zones of change. Will continue in IOP to prevent decompensation, increase healthy communication and skills, and stabilize mood. Narrative Note: []
--- NOTE | 2019-12-30 15:23 | BH.MDN ---
Multi-Disciplinary Note - Note 60-min Individual Time Started:: 11:23 Date: 12/30/19 Purpose of session/treatment goals addressed:: The purpose of this session was to address current symptoms, stressors, and anxious thought patterns impacting treatment goal progress. Another purpose was to work with client on identifying challenging unrealistic expectations and distorted thoughts impacting ability to implement healthy calming skills. Eye Contact:: Good Motor Activity:: Appropriate Appearance:: Neat, Casual Speech:: Appropriate Mood:: Euthymic, Anxious Affect:: Other - unable to assess as client wearing mask per COVID-19 protocol. Thoughts:: Linear, Logical, No evidence of hallucinations/delusions noted Staff Interventions:: Therapist used active listening and open-ended questions to explore client's current stressors, symptoms, and thoughts impacting ability to manage anxiety symptoms. Reviewed mindfulness homework and discussed client expectations regarding ability to apply mindfulness components. Therapist provided psychoeducation on stress and it?s impacts on engaging the parasympathetic nervous system. Provided validation and normalized client frustrations regarding progress. Therapist applied components of CBT to continue challenging client use of distorted thoughts. Worked with client to create a realistic mindfulness goal. Client Response:: Client responded well to session, open to meeting with therapist and actively engaged throughout. Client had taken notes on his phone of areas in which he feels he is making progress and those in which he continues to experience difficulty. Client expressed progress in his overall sleep quality, reduced sense of worry and improved ability to manage symptoms of anxiety, as well as no ?overwhelming feelings of depression? in the past 10 days. Reports continued struggles with concentration and remaining engaged in the moment, ongoing feelings of tension in his body, as well as ongoing racing thoughts. Client discussed that he often does not notice the tension in his body until someone points it out to him. Shared that he feels he is ?always on edge? and often experiences difficulties in slowing down or relaxing. Client discussed successful completion of homework which was to begin incorporating mindfulness in his day. 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 Client noted a goal of eliminating screen time from the hours of 7pm-9pm in order to practice mindful engagement with his family. Discussed expectations for himself during this 2 hour exercise as client expressed he would be upset if something unexpected impacted his plans to engage in the exercise. Gave the example that he would feel he failed if he looked at his phone/tv/computer or if the dog got sick and he had to take time to care for him rather than be able to engage with his family for the full two hours. Did well to work with therapist on challenging rigidity of expectations and identified that expecting no complications is unrealistic and may be setting himself up for disappointment. Worked with client to adjust expectations so they are more realistic and explored additional areas in his daily life in which rigidity of thought and expectations for himself may be maintaining physical tension and symptoms of anxiety. Client reports willingness to attempt the 2 hour screen free exercise without establishing a set plan for how he will spend those two hours to improve flexibility of thought. Risks/Concerns:: No risks or concerns at this time. Client denies any SI, plan, or intent as of this date 12/30/19. Progress Toward Goals/Plan:: Some progress noted AEB client self-report of improved ability to manage anxiety and overall reduction of anxiety symptoms. Reports decreased ?worry?, though continues to struggle at times with racing thoughts related to everything he has to accomplish and fears of not doing something right. Client continues to express significant distorted thoughts associated with his self-worth and feeling others are judging him. This continue to impact client overall expectations of himself which remain notably high. Client has however reported an improvement in depressive symptoms as he has not felt ?overwhelming depression? in the past 10 days and has not been using isolation as a primary means of coping either. Client recommended continued IOP tx to further improve application of mindfulness calming skills, reduce depression and anxiety, as well as prevent decompensation at this time. Time Stopped:: 12:20
--- NOTE | 2020-01-04 10:15 | BH.SGPN.GN ---
Behaviors/Verbalizations/Mental Status: []Client alert and oriented, casual dress, hygiene tended to. Eye fair. Motor activity tense. Speech within normal limits. Affect constricted. Mood dysthymic. Thoughts linear, logical, no signs of hallucinations or delusions. Client Response/Progress/Benefit: []Pt responded well to session AEB contributing to discussion. Pt appeared to connect well with the topic of resilience AEB pt providing input during discussion about quote. Pt worked with the group during discussion of the costs of resisting change and the benefits of adapting to adversity. Group identified costs of resisting change included: staying stuck, difficulty managing crises, increased depression, increased anxiety, and decrease in self-care. Attentive during psychoeducation on various bailey factors in developing personal resilience. Pt reported making connections with others can increase resilience because don't feel alone and supports can provide a different perspective. Pt seemed to benefit from increasing awareness of strategies to increase personal resilience and the impacts of resilience on managing mental health sx. Will continue IOP tx to promote the use of healthy coping skills, challenge distorted thoughts, and prevent decompensation. Narrative Note: []
--- NOTE | 2020-01-04 11:15 | BH.SGPN.GN ---
Behaviors/Verbalizations/Mental Status: []Client alert and oriented, casually dressed and groomed. Eye contact fair. Motor activity appropriate. Speech within normal limits. Affect unable to gather due to client wearing a mask for COVID-19 protocol, mood anxious. Thoughts linear, logical, no signs of hallucinations or delusions. Client Response/Progress/Benefit: []Client engaged participant as evidenced by client providing input throughout discussion and listening attentively to peers. Client participated in the discussion of how each resiliency component can help increase personal resiliency. Client also asked questions to better understand how one can retrain their brain to be more resilient. Client identified current resiliency traits he currently possesses and then identified what trait he would like to improve. Client reports belief he has been using the resiliency traits of taking decisive action and accepting that change is a part of living. Client reported he continues to struggle with acceptance, but he recognizing change has helped client ?seek knowledge.? Client stated he would like to work on ?giving into the change rather than fighting it.? Client reported he will do this by sitting with uncomfortable feelings such as not spending as much time preparing for his football game this week. Client appeared to benefit from increasing insight to ways in which client can improve resilience to adversity and daily stressors. Client to continue IOP tx to promote distress tolerance skills and reduce intensity and duration of symptoms. Narrative Note: []
--- NOTE | 2020-01-05 09:05 | BH.SGPN.GN ---
Behaviors/Verbalizations/Mental Status: []Client alert and oriented, casual dress, hygiene tended to. Eye contact fair. Motor activity appropriate. Speech within normal limits. Affect constricted, mood dysthymic. Thoughts linear, logical, no signs of hallucinations or delusions. Reviewed client?s symptom tracker, pt denies current suicidal thoughts or intention to date. Client Response/Progress/Benefit: [] Pt responded well to session AEB pt appearing to listen attentively to peers and openly sharing thoughts and feelings. 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 Patient stated he usually takes 2 hours of his evening to watch the TV games. Patient reported he was able to challenge his rigid thought of needing to do that and instead went lifting and spent time with the family. 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 Patient reported he starting to struggle with sleeping but is still feeling energized. Patient reported continues to be tense and anxious which results in others tiptoeing around him. Patient states he was extremely agitated the past 2 days but was able to keep his emotions in check. Narrative Note: []
--- NOTE | 2020-01-05 10:25 | BH.SGPN.GN ---
Behaviors/Verbalizations/Mental Status: []Client alert and oriented, neat appearance. Eye contact good. Motor activity appropriate. Speech within normal limits. Affect unable to gather due to wearing a mask, mood dysthymic and anxious. Thoughts linear, logical, no signs of hallucinations or delusions. Client Response/Progress/Benefit: []Client responded well to session, attentive and occasionally contributing. Engaged during psychoeducation portion reviewing fixed mindset. Client connected with traits of the fixed mindset and worked with group to identify how a fixed mindset can impact our mental health which included: decreased motivation, giving up when faced with a setback, negative self-talk, low confidence, and staying stuck. Client stated fixed thoughts can be automatic and if one does not train their brain to challenge these thoughts, ?it will keep happening.? Seemed to benefit from group by increasing awareness of how one's mindset impacts mental health. Progress noted AEB client?s increase insight and self-report of practicing mindfulness on a regular basis. will continue IOP tx to promote mood stability, increase distress tolerance, and reduce unrealistic expectations. Narrative Note: []
--- NOTE | 2020-01-05 11:22 | BH.SGPN.GN ---
Behaviors/Verbalizations/Mental Status: []Client alert and oriented, neat and casually dressed and groomed. Eye contact good. Motor activity appropriate. Speech within normal limits. Affect unable to gather due to client wearing a mask as part of COVID-19 protocol. mood anxious and depressed. Thoughts linear, logical, no signs of hallucinations or delusions. Client Response/Progress/Benefit: []- Client actively listening during discussion, did well to provide some input, and taking notes throughout. Client did well to work with group on identifying characteristics and benefits of adopting a growth mindset. Reports that a growth mindset could help to improve personal resilience. Client was actively listening during activity in which participants helped reframe examples of fixed thoughts into growth mindset thoughts. Client worked to apply skills learned to reframe own personal fixed thoughts. Reframed thought of ?I continue to put in the time and effort with minimal results? with growth mindset thought of ?If I keep trying, I can make each day count and see small results?. Client at times struggled with identifying growth mindset thoughts but was receptive of additional assistance provided. Able to identify benefit of reframing his thoughts as increased acceptance of himself. Benefitted from discussing benefits of growth mindset and brainstorming strategies for prompting growth-mindset. Client progress noted in self-report of improved ability to cope with depressive sx though continues to struggle with anxiety. Will continue IOP tx to continue to promote use of mindfulness and grounding skills and skill application as well as improve healthy coping repertoire. Narrative Note: []
--- NOTE | 2020-01-06 09:05 | BH.SGPN.GN ---
Behaviors/Verbalizations/Mental Status: []Client alert and oriented, casual appearance. Eye contact good. Motor activity tense. Speech within normal limits. Affect unable to gather due to wearing a mask for COVID-19 protocol, mood anxious and frustrated. Thoughts linear, logical, no signs of hallucinations or delusions. Reviewed client?s symptom tracker, no risk for suicidal ideation, plan, or intent as of 01/06/20. Client Response/Progress/Benefit: []Client responded well to session, quiet at first, but participating in check-in. Client reports feeling ?restless? this morning as client continues to struggle sitting with uncomfortable feelings. Client recognizes he has unrealistic expectations of himself and client has a hard time relaxing. Client had several mental health positives this morning including gaining support and understanding from his , spending time with family, challenging his mindset, and increasing his insight to behaviors that reinforce poor communication. Appeared to benefit from reflecting on his positives. Progress noted in client?s increased engagement with family. Will continue IOP tx to prevent decompensation, increase distress tolerance skills, and improve self-compassion. Narrative Note: []
--- NOTE | 2020-01-06 10:22 | BH.SGPN.GN ---
Behaviors/Verbalizations/Mental Status: []Client alert and oriented, casual dress, hygiene tended to. Eye contact good. Motor activity appropriate. Speech within normal limits, quiet. Affect could not be assessed due to pt wearing a face mask as precaution against coronavirus. Mood dysthymic and anxious. Thoughts linear, logical, no signs of hallucinations or delusions. Client Response/Progress/Benefit: []Pt receptive of session, remained an active participant throughout. Appeared to connect with topic of healthy decision making and worked with group to identify factors that can lead to being on an unhealthy decision-making path. Group identified factors to include: stubbornness, ignoring warning signs, not asking for help out of fear of judgement, habit, and fear of the unknown. Pt reported that reliance on unhealthy coping skills have prevented progress in the past. Group was provided with the ?Chapters of My Life? handout exploring how our decisions can contribute to the different life paths or ?chapters? we may be on. Pt engaged throughout processing discussion, was willing to reflect upon which chapter she is currently in and what factors impact ability to move to the next chapter in life. Pt identified being in chapter 2. Shared that negative thoughts, high expectations, and impatience has kept him from moving to a healthier chapter. Appeared to benefit from gaining insight into own personal barriers impeding mental health progress. Progress noted in pt increased application of mindfulness skills and self-reports of reduced isolation. Continues to struggle with consistent skill application and intrusive thoughts impacting ability to make progress. Pt to continue IOP tx to prevent decompensation, promote healthy change behaviors, and improve coping repertoire. Narrative Note: []
--- NOTE | 2020-01-06 13:40 | BH.TPR ---
Treatment Plan Review Date of Admission:: 12/15/19 Date of Treatment Plan Review:: 01/06/20 Admitting Diagnoses:: Major depressive disorder, recurrent, severe without psychosis; generalized anxiety disorder; alcohol use disorder in remission; benzodiazepine use disorder in remission Current Diagnoses:: Major depressive disorder, recurrent, severe without psychosis; generalized anxiety disorder; alcohol use disorder in remission; benzodiazepine use disorder in remission Patient's Response to Treatment:: Client has shown positive strides towards improving overall management of mental health sx and self-identifies areas of progress since admission to [facility]. When client started [facility] he was experiencing significant anxiety, ruminating and intrusive thoughts causing some minor paranoia, depressive symptoms and hopelessness, isolation, inability to concentrate, irritability, and increased tension daily. Client reported having significant difficulties in connecting with the present, enjoying daily activities, engaging with others, and getting out of his own head. At review, client reported that a majority of his depressive symptoms have subsided, he is no longer isolating to avoid communicating with supports, and has improved in overall ability to manage panic related sx of anxiety. Client has also been practicing mindfulness daily, has been practicing acceptance of intrusive thoughts, and is regularly working to identify and challenge unrealistic expectations of himself and others. Client is active in both group and individual therapy sessions. Client often contributes to group discussions, offers support to peers and is receptive of feedback in return, and takes consistent notes. In individual sessions, client is open and receptive to feedback, consistent with homework, and willing to work on challenging his distorted thoughts reinforcing anxiety as well as begin to work with improving overall ability to sit with uncomfortable emotions. Client does continue to struggle with setting realistic expectations for himself and impatience in the treatment process. He often expresses all or nothing thinking about his progress and struggles with disqualifying areas in which he has made gains. Client?s continued rigidity in expectations may have impacted overall DSM-5 scores from admission to time of review, as pt has seen an 18% increase in overall scores. However, pt does self-report a reduction in overall anxiety and depression levels. Depression as decreased by 17%, anxiety scores have maintained consistent, though panic has reduced by 100%. Status of Current Problems and Symptoms: Client continues to struggle with intrusive thinking, engaging in behaviors reinforcing difficulties relaxing such as journaling for 4 hours or completing tasks for the sole purpose of being productive. Continues to struggle with having unrealistic expectations for self and difficulties in allowing himself to relax or be present. Client also reports finding it difficult to accept good days and often worries that he is doing something wrong or that he will ?not be able to sustain this?. Additionally, client continues to work on challenging distortions such as personalization, emotional reasoning, and all or nothing thinking that reinforces anxiety and depression. Problem #1 Problem Name:: Reduce depressive symptoms, worthlessness, poor concentration, isolation Status of Goals:: Objective 1- partially complete with ongoing work encouraged. Client is able to identify negative thought patterns that reinforce depression; however, continues to struggle with independently identifying and replacing this thoughts with more self-compassionate statements outside treatment environment. Client reports working daily to catch and challenge negative thoughts. Obj 2- complete with continued work encouraged. Client?s DSM-5 scores for depression decreased by 17% since admission. Client reports practicing opposite action, spending more time with supports, and exercising to improve mood. Team Recommendations:: Client is recommended to continue working on treatment goals as client has made progress, but he continues to struggle with disqualifying his progress and practicing self-compassion. Client can benefit from continuing to build his coping skills for depression. Problem #2 Problem Name:: Reduce overall frequency, intensity, and duration of anxiety Status of Goals:: Objective 1- partially complete. Ongoing work encouraged. Client is able to identify negative core beliefs impacting anxiety when engaged in individual sessions, though struggles in doing so outside of tx environment. He has been practicing acceptance, mindfulness, and opposite action to overcome these thoughts. However, client still continues to struggle with managing these thoughts on a consistent basis. Objective 2- incomplete, ongoing work encouraged. Client?s DSM-5 scores have maintained consistent since admission; however, panic sx have decreased by 100% since admission. Client has been reporting practicing mindfulness and other coping skills to better manage anxiety. Team Recommendations:: Client is recommended to continue working on treatment goals as client has made progress, but he continues to report intrusive thoughts and anxiety on an almost daily basis. Client can benefit from ongoing work to reduce intrusive thoughts and improve distress tolerance.
--- NOTE | 2020-01-06 16:03 | BH.MDN ---
Multi-Disciplinary Note - Note 45-min Individual Time Started:: 11:44 Date: 01/06/20 Purpose of session/treatment goals addressed:: The purpose of this session was to assess client's current symptoms, application of coping skills, and review tx progress so far. Another goal was to discuss plan of care moving forward and ways to promote gains. Eye Contact:: Good Motor Activity:: Restless Appearance:: Neat, Casual Speech:: Appropriate Mood:: Euthymic, Anxious Affect:: Full Thoughts:: Linear, Logical, No evidence of hallucinations/delusions noted Staff Interventions:: Therapist used active listening and open-ended questions to explore client's current symptoms and stressors, as well as elicit client opinion on tx progress and application of coping skills. Therapist reviewed progress with client and used IA techniques to explore client?s goals moving forward, identify ongoing areas of concern, and discuss continued plan of care. Applied strengths perspective to empower client on improved use of coping skills, and continued progress. Client Response:: Client responded well to session, open to meeting with therapist. Reports that he has been doing ?better? over the past two weeks and went on to explain feeling more confident in overall progress and ability to manage mental health sx. Discussed areas in which client feels he has made the most progress and areas in whish he continues to struggle. Client identified improved management of depressive symptoms, indicating ?I feel like I?m not really experiencing any depression anymore?. Shared that this has been a relief for him, noting ?I don?t know how anyone who has depression for years does it? as he indicated being particularly unsettled by his depressive sx when at their worst. Identified skills he?s found to help with reduction of sx which included thought challenging, seeking IOP tx, and more honestly opening up about his emotions. Went on to discuss that he feels he has made progress in management of anxiety as well, but continues to struggle significantly with intrusive ruminating thoughts which impede consistent progress in this area. Identified struggling with management of irritability at times as well and expressed ?I?m struggling with enjoying things. I want to be able to learn to have fun?. Upon further discussion, client discussed personal goals for treatment moving forward include continuing to improve anxiety management and thought challenge skills, as well as improve ability to be ?in the moment? so as to increase opportunities for personal enjoyment. Risks/Concerns:: Client denies any active suicidal ideations, plan, or intent as of this date. Progress Toward Goals/Plan:: Progress noted. Client has shown positive strides towards improving overall management of mental health sx and self-identifies areas of progress since admission to IOP. Client does continue to struggle with setting realistic expectations for himself and impatience in the treatment process. Client?s continued rigidity in expectations may have impacted overall DSM-5 scores from admission to time of review, as pt has seen an 18% increase in overall scores. However, pt does self-report a reduction in overall anxiety and depression levels. Depression as decreased by 17%, anxiety scores have maintained consistent, though panic has reduced by 100%.Client will continue IOP tx to promote use of healthy coping skills, improve daily functioning, and reduce mental health symptoms. Time Stopped:: 12:30
== END 2020-01-06 23:59 ==
LOC: BHIOP 09:00
PROVIDERS: PCP Family Medicine; Referring Provider Psychiatry & Neurology Psychiatry; Visit Provider Psychiatry & Neurology Psychiatry
DX: F33.2 Major depressive disorder, recurrent severe without psychotic features (principal); F41.8 Other specified anxiety disorders; F10.21 Alcohol dependence, in remission; Z79.899 Other long term (current) drug therapy
CPT/HCPCS: H0035; 90834; 90837; 90853

== ENCOUNTER → 2019-12-15 12:19 | Outpatient (CLI) | payer OTHER, SELFPAY ==
[2019-12-15 16:09] LABS: Hematocrit 49.9 % (40-54); Hemoglobin 15.9 g/dL (13.0-16.5); Mean Corp Hgb Conc 31.9 g/dL (32-36); Mean Corpuscular Hgb 26.6 pg (27.0-32.0); Mean Corpuscular Volume 83.6 fL (80-94); Mean Platelet Vol. 11.1 fl (6.2-12.0); Platelet Count 286 K/mm3 (150-450); RBC Distribution Width CV 12.5 % (11.6-14.6); RBC Distribution Width SD 37.5 fl (35.1-43.9); Red Blood Count 5.97 M/mm3 (4.6-6.2); White Blood Count 7.7 K/mm3 (4.4-11.0)
[2019-12-15 16:17] LABS: Progesterone Level 0.35 ng/mL (See Comment); Vitamin B12 590 pg/mL (211-911); Vitamin D,25 Hydroxy 97.3 ng/mL
[2019-12-15 18:00] LABS: ALB/GLOB Ratio 1.2 RATIO (0.9-2.4); AST(SGOT) 22 U/L (15-37); Alanine Aminotransfer ALT/SGPT 34 U/L (16-61); Albumin, Serum 4.2 g/dL (3.2-5.0); Alkaline Phosphatase 92 U/L (45-117); Anion Gap 7 (5-15); BUN 15 mg/dL (7-18); BUN/Creat Ratio 13.5 RATIO (10-20); Calcium,Total 8.6 mg/dL (8.5-10.1); Chloride 105 mmol/L (98-107); Cholesterol 201 mg/dL (200); Creatinine, Serum 1.11 mg/dL (0.70-1.30); EST Glomerular Filtration Rate 77 mL/min (>60); Est Glom Filt Rate - Afr Amer 93 mL/min (>60); Estradiol 60.8 pg/mL; Globulin 3.4 g/dL (2.2-4.2); Glucose 91 mg/dL (74-106); High Density Lipoprotein 43 mg/dL; Protein, Total 7.6 g/dL (6.4-8.2); Sodium Level 137 mmol/L (136-145); Triglycerides 87 mg/dL; Very Low Density Lipoprotein 17 mg/dL (5-40)
[2019-12-19 16:07] LABS: Testosterone, % Free 3.39 % (1.50-4.20); Testosterone, Free 20.41 ng/dL (5.00-21.00)
[2019-12-20 07:42] LABS: Testosterone, Total 602 ng/dL (264-916)
== END ==
PROVIDERS: PCP Family Medicine; Referring Provider Nurse Practitioner Family; Visit Provider Nurse Practitioner Family
DX: R53.82 Chronic fatigue, unspecified (principal); M62.81 Muscle weakness (generalized); R68.82 Decreased libido; E29.1 Testicular hypofunction
CPT/HCPCS: 36415; 80053; 80061; 82306; 82607; 82627; 82670; 82746; 84144; 84270; 84402; 84403; 85027; 82626

== ENCOUNTER → 2019-12-18 09:27 | Outpatient (CLI) | payer OTHER, SELFPAY ==
--- NOTE | 2019-12-30 11:23 | PCM.BH.PN_ITS ---
Progress Note Progress Note: History of Present Illness/Interim History: [] Patient is a 44-year-old male who is seen in follow-up at the [facility] behavioral health IOP program. The patient states that he has been taking the Zyprexa 2.5 mg twice a day since about 1 week ago. His sleep is vastly improved and he reports getting 7 hours of total sleep per night. He continues to wake up a few times a night but is able to get right back to sleep. He is less anxious and restless than before and his mood is better. However he still has significant anxiety that feels to him more like tension than worry. He is still has some racing thoughts but they are not chaotic anymore as the racing is improved. He has not had any moments of deep sadness or episodes of deep sadness since December 20, 2019. The patient says that his says he is much more engaged at home lately. He still gets agitated on occasion about once a day when something happens to stress amount. He continues to exercise to help manage his anxiety. He remains sober and is still on the Vivitrol and has decided not to stop the Vivitrol. He denies any suicidal or homicidal ideation or any passive thoughts of . He denies any hopelessness. Patient is tolerating both of the new medications well. The Seroquel had made the patient feel more tense at night and it is possible that only being off it 1 week the tension will resolve with time. Current Psychiatric Medications: [] Strattera 40 mg p.o. twice daily; Remeron 30 mg p.o. nightly (x3 weeks now); Vivitrol IM; vitamin D; Zyprexa 2.5 mg p.o. twice daily (x1 week). Laboratory: The patient's 24-hour urine for metanephrine came back in the normal range so was negative. Mental Status Examination: [] Patient is a 44-year-old man who appears normal for stated age and fit for stated age. He is seen wearing a mask due to the pandemic. He is casually dressed and groomed with good hygiene. He has no psychomotor agitation or retardation. His eye contact is good and speech is normal rate and rhythm and fluent with no pressure. Mood is approaching euthymi a today. Affect is full and normal. Thought processes organized and goal- directed. Thought content: No evidence of suicidal or homicidal ideation. No evidence of passive thoughts of . Impulsivity: Low. Insight: Good. Judgment: Intact. Diagnoses: [] [place] I: [] Major depressive disorder, recurrent, severe without psychosis; generalized anxiety disorder; alcohol use disorder in remission on Vivitrol; benzodiazepine use disorder in remission for 4-1/2 months. [place] II: [] Deferred [place] III: [] History of migraine headaches [place] IV:[]] Primary support, work issues Plan: [] The patient will continue the IOP program at [facility] as the support, structure, education, and individual and group therapy will hopefully prevent worsening of the patient's symptoms which might require hospitalization. He felt safe during the interview and if at any time he is not feel safe he will let us know or go to the emergency room. The risks, options, and possible complications and side effects of the medications were again discussed with the patient and he understands and accepts these. He also understands the importance of staying sober from all substance use. No medication dosage changes were made today as the patient has only been taking this up Zyprexa for 1 week and has only been off the Seroquel for 1 week. He will continue the current medication regimen. I will see the patient in follow- up in 1 to 2 weeks.
--- NOTE | 2020-01-06 10:44 | PCM.BH.PN_ITS ---
Progress Note Progress Note: History of Present Illness/Interim History: [] Patient is a 44-year-old male who is seen in follow-up at the [facility] behavioral health IOP program. Patient states that he feels he is doing okay overall and is slowly improving but he is still frustrated that at times he feels quite tense. Overall he feels his mood is much better and does not feel that he is depressed anymore. However he states that he is still irritable and at times tense and he has trouble tolerating being around his children at times. Sleep is improved he is getting anywhere from 7 to 9 hours a night and he feels the Flexeril and the Zyprexa have helped his sleep. His neck tension is improved also. He has extremely critical thoughts about himself on a routine basis. He says that he feels that nothing he does is ever good enough. He feels he is his own hardest critic. He is starting to journal when he gets the down moments and we discussed the content of his journal which describes the above symptoms. He still is not enjoying much of anything he does. He denies any suicidal or homicidal ideation. He denies feeling hopeless. He denies any hallucinations or delusions. He continues to exercise to help manage his anxiety. He is still sober and on the Vivitrol IM. Current Psychiatric Medications: [] Strattera 40 mg p.o. twice a day; Remeron 30 mg p.o. nightly;; vitamin D; Zyprexa 2.5 mg p.o. twice daily (x2 weeks); Flexeril 10 mg p.o. nightly (x1 week). Mental Status Examination: [] Patient is a 44-year-old male who is wearing a mask due to the pandemic and appears normal and fit for stated age. He is casually dressed and groomed with good hygiene. He has no psychomotor agitation or retardation. His eye contact is good and his speech is normal rate and rhythm and fluent with no pressure. Mood is euthymic today. Affect is full and normal. Thought process is organized and goal-directed. Thought content: No evidence of suicidal or homicidal ideation. No evidence of passive thoughts of . No evidence of hallucinations or delusions. Impulsivity: Low. Insight: Limited but improving. Judgment: Intact. Diagnoses: [] [place] I: [] Major depressive disorder, recurrent, severe without psychosis; generalized anxiety disorder; alcohol use disorder in remission on Vivitrol; benzodiazepine use disorder in remission for almost 5 months. [place] II: [] Deferred [place] III: [] History of migraine headache [place] IV:[]] Primary support, work issues Plan: [] The patient will continue the IOP program in behavioral health at [facility] as a support, structure, education, individual and group therapy will hopefully continue to benefit the patient and prevent worsening of his symptoms. He felt safe during the interview and if at any time he does not feel safe he will let us know or go to the emergency room. The risks, options, possible complications and side effects of the medications were discussed with the patient and he understands and accepts these. The patient agrees to increase his Zyprexa or olanzapine to 5 mg p.o. nightly and 2.5 mg p.o. every morning. A prescription was given for Zyprexa 2.5 mg, #90, 0 refills. He will decrease the Flexeril to one half tab or 5 mg nightly when he goes up on the Zyprexa. If he is unable to sleep after that he can increase the Flexeril back up to 10 mg p.o. nightly. I will see the patient in 1 to 2 weeks in follow-up.
== END ==
PROVIDERS: PCP Family Medicine; Referring Provider Psychiatry & Neurology Psychiatry; Visit Provider Psychiatry & Neurology Psychiatry
DX: F41.0 Panic disorder [episodic paroxysmal anxiety] (principal)

== ENCOUNTER → 2019-12-21 13:09 | Outpatient (CLI) | payer OTHER, SELFPAY ==
--- NOTE | 2019-12-23 12:24 | PCM.BH.PN ---
Progress Note Progress Note: History of Present Illness/Interim History: [] Patient is a 44-year-old male who is seen in follow-up at the [facility] health IOP program. He has a history of depression, alcohol and benzodiazepine dependence and possible ADD. Patient was last seen about 1 week ago and at that time the patient was started on low doses of Seroquel to in an attempt to help with his sleep difficulties. The patient states that he slept about 4 hours if he worked up to 100 mg of Seroquel at bedtime but still woke up at times and states that he felt he was more tired during the day. His mood is improved overall in the last week or 2 and his anxiety though is still present during the day. At times he is very restless and tense as described in the initial eval. He remains sober and is still on Vivitrol. He denies any passive thoughts of . He denies any suicidal or homicidal ideation. He denies any hopelessness but does state that he feels frustrated. Patient is still isolating himself and not exercising as much as he was before he started Seroquel. The patient says that he felt the Seroquel made him more tense at night and made him have extra tension in his muscles and shoulders at night. The patient has always felt like people were judging him harshly or feeling he is not doing a good job or kind of out to get him. He has always felt this way but this has worsened in recent months. He used to drink a lot of alcohol to get rid of these feelings. He described an incident with his which he told his and daughter to SH H very quietly while he was watching football and they were talking. He says that his became angry and said you do not ever tell me to SH . Patient states that he did not feel he had done anything wrong but after this happened he felt very down on himself and when isolated in his room for several days and would not of come out except to go to IOP. Once he came back to the IOP program he did not feel in a bad mood anymore. Current Psychiatric Medications: [] Strattera 40 mg p.o. twice a day; Remeron 30 mg p.o. nightly (x2 weeks now); Vivitrol IM; vitamin D; Seroquel 25 mg in the morning and up to 100 mg at bedtime (x1 week) Mental Status Examination: [] Patient is seen wearing a mask due to the pandemic and appears normal for stated age and with good hygiene. He has no psychomotor agitation or retardation. He is pleasant during the interview. His eye contact is good and his speech is normal rate and rhythm and fluent with no pressure. Mood is depressed. Affect is full and normal. Thought processes organized and goal-directed. Thought content: No evidence of suicidal or homicidal ideation. No evidence of passive thoughts of . Impulsivity: Low to moderate. Insight is fairly good. Judgment is intact. Diagnoses: [] [place] I: [] Major depressive disorder, recurrent, severe without psychosis; generalized anxiety disorder; alcohol use disorder in remission on Vivitrol; benzodiazepine use disorder in remission for 4 months [place] II: [] Deferred [place] III: [] History of migraine headaches [place] IV:[]] Primary support, work issues Plan: [] Patient will continue the IOP program at [facility] [place] as the support, structure, education and individual and group therapy will hopefully prevent worsening of the patient's symptoms which might require hospitalization. He felt safe during the interview and if in any time he does not feel safe he will let us know or go to the emergency room. The risks, options, and possible complications and side effects of medication were again discussed with the patient and he understands and accepts these. He understands the importance of staying sober from all substance use. He is going to see his substance abuse doctor tomorrow and he may want to go off Vivitrol. Discussed with the patient that if he does go off and gets cravings he should go back on. In addition the Seroquel will be discontinued as the patient does not feel will help him and feels it makes his muscle tension worse. Patient is given agrees to take Zyprexa 2.5 mg, 1 p.o. nightly and 1 p.o. every morning (prescription sent in); Flexeril 10 mg p.o. nightly; he will continue his current doses of Strattera, Remeron and Vivitrol. I will see the patient in follow-up in 1 week.
[2019-12-29 08:08] LABS: Metanephrine, Ur 22 ug/L (Undefined); Normetanephrines, 24Ur 124 ug/24 hr (156-729); Normetanephrines, Ur 59 ug/L (Undefined)
[2019-12-29 10:25] LABS: Metanephrines, 24Ur 46 ug/24 hr (58-276)
== END ==
PROVIDERS: PCP Family Medicine; Referring Provider Psychiatry & Neurology Psychiatry; Visit Provider Psychiatry & Neurology Psychiatry
DX: F41.0 Panic disorder [episodic paroxysmal anxiety] (principal)
CPT/HCPCS: 81050; 83835

== ENCOUNTER 2020-01-11 09:00 | Outpatient (RCR) | payer OTHER, SELFPAY ==
[2019-12-23 09:34] VITALS: BMI 24.1
--- NOTE | 2020-01-04 09:05 | BH.SGPN.GN ---
Behaviors/Verbalizations/Mental Status: []Client alert and oriented, casually dressed. Eye contact good. Motor activity appropriate. Speech within normal limits. Affect unable to gather due to wearing a mask for COVID-19 protocol, mood euthymic. Thoughts linear, logical, no signs of hallucinations or delusions. Reviewed client?s symptom tracker, no risk for suicidal ideation, plan, or intent as of 01/04/20. Client Response/Progress/Benefit: []Client responded well to session, as he engaged and listened to other group members as they shared. Client?s goal over the weekend was to reduce his screen time on his phone and be more mindful of spending quality time with family. Client completed his goals as he spent time outside with his family, rather than watching a football game. Client shared he felt irritable with being surrounded by others constantly, as well as frustrated as he made many trips to a hardware store in a day. Client said he was able to remain calm during his drives to the hardware store and focused on his breathing. Client utilized self-care, mindfulness, and avoided isolation. Client shared that he is mindful that chaos is a trigger. Client took two walks on Saturday when he felt stressed. Client?s emotion today is ?tense? as he can feel a tightness in his chest, without an explanation. Client benefited from group today as he labeled his trigger, became more mindful of self-habits and routines, and avoided isolation. Client will continue IOP to prevent decompensation, reduce distortions, and increase the use of coping skills. Narrative Note: []
[2020-01-07 00:45] VITALS: BP 131/85; PULSE 82
--- NOTE | 2020-01-11 09:00 | BH.SGPN.GN ---
Behaviors/Verbalizations/Mental Status: []Client alert and oriented, casually dressed. Eye contact good. Motor activity appropriate. Speech within normal limits. Affect unable to gather due to wearing a mask for COVID-19 protocol, mood euthymic. Thoughts linear, logical, no signs of hallucinations or delusions. Reviewed client?s symptom tracker, no risk for suicidal ideation, plan, or intent as of 01/11/20. Client Response/Progress/Benefit: []Client responded well to session and engaged and provided feedback to other group members. Client?s goal for the weekend was to increase self-awareness with emotional regulation and to not isolate when triggered. Client stated he spent quality time with his and children over the weekend as he went on a date with his to celebrate their anniversary as well as watching television with his daughters. Client was discouraged by the loss of his son?s football game on Saturday. 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 after the loss. Client said he successfully regulated his emotions by being mindful and gained self-awareness. Client stated he was feeling ?confident? today. Client benefited from group as he increased his self-awareness to his emotions and triggers. Client will continue IOP to further promote the use of healthy coping skills, reduce isolative behaviors, and increase distress tolerance. Narrative Note: []
--- NOTE | 2020-01-11 10:08 | BH.SGPN.GN ---
Behaviors/Verbalizations/Mental Status: []Client alert and orient. Appearance casual and appropriately groomed. Speech an appropriate rate and tone. Motor activity appropriate. Mood euthymic, affect unable to gather due to client wearing a mask for COVID-19 protocol. No evidence of delusion or hallucinations.? Client Response/Progress/Benefit: []Client responded well to session, attentive and contributing to discussion. Group discussed benefits of healthy communications on mental health which included: get the truth across, less distorted thoughts, less stress, and reduced mental health symptoms. Client also stated that healthy communication can be ?mentally freeing.? Group additionally discussed potential barriers to communication including: tone, communicating with behaviors, assumptions, mood dysregulation, and being rushed. Attentive during psychoeducation on the four communication styles. Client shared his mood can be a barrier to communicating and interpreting others? communication. Client self-reports identifying most with the passive communication style. Client shared being passive can lead to self-medication and isolating. Client stated for him it has always been easier to keep in his emotions, but client recognizes this makes problems worse. Progress noted in increased insight into personal communication styles and barriers. Client to continue in IOP tx promote the use of healthy coping skills, reduce negative thinking, and reduce anxiety. Narrative Note: []
--- NOTE | 2020-01-11 11:15 | BH.SGPN.GN ---
Behaviors/Verbalizations/Mental Status: [] Client alert and oriented, neatly dressed and groomed. Eye contact fair to good. Motor activity appropriate. Speech within normal limits, quiet. Affect unable to gather due to wearing a mask for COVID-19 protocol, mood dysthymic, anxious. Thoughts linear, logical, no signs of hallucinations or delusions. Client Response/Progress/Benefit: [] Client responded well to session, listening attentively to others and providing some input throughout. Engaged in discussion continuing to review the different communication styles. Client asked questions and provided examples to the group. Attentive during psychoeducation portion reviewing assertive communication strategies to improve communication. Strategies identified included: active listening, paraphrasing, asking questions for clarification, concise communication, and making direct statements. Client inquired about how to communicate difficult information in an assertive rather than passive or aggressive manner. Stated he often struggles in doing so out of fear of the other person?s reaction or them becoming upset. Reported he plans to work on improving communication by practicing being more direct with supports about what he needs rather than ?beating around the ochoa?. Client reported he has had a difficult time with this in the past and has seen it negatively impact his emotions as a result. Client seemed to benefit from increasing awareness of healthy strategies to improve communication. Progress noted in client improved use of self-care skills as well as improved ability to implement healthy emotion regulation skills. Will continue IOP tx to increase use of healthy coping skills, work on improving communication and prevent decompensation. Narrative Note: []
--- NOTE | 2020-01-12 10:20 | BH.SGPN.GN ---
Behaviors/Verbalizations/Mental Status: []Client alert and oriented, neatly dressed and groomed. Eye contact good. Motor activity appropriate. Speech within normal limits. Affect unable to gather due to wearing a mask for COVID-19 protocol, mood dysthymic. Thoughts linear, logical, no signs of hallucinations or delusions. Client Response/Progress/Benefit: []Client was an active participant AEB contributing to discussion and participating in activity. Connected with the topic of pitfalls and helped the group discuss barriers that keep them from choosing a healthier path to mental wellness such as pitfalls. Group worked together to identify examples of personal pitfalls which included; not expressing self, not reaching out to supports, negative self-talk, and not having awareness. Engaged during the activity and did well to provide support and listen to feedback from peers. Client reported when his eyes were closed it was easier for client because I could accept what I couldn't control. Client stated that when one has awareness it can be poor pressure. Client benefited from increased awareness on the impact that pitfalls can have on mental health. Will continue IOP tx to further improve application of coping skills, increase distress tolerance, and improve functioning. Narrative Note: []
--- NOTE | 2020-01-12 11:20 | BH.SGPN.GN ---
Behaviors/Verbalizations/Mental Status: []Client alert and oriented, casual dress, hygiene tended to. Eye contact good. Motor activity appropriate. speech and tone WNL. Affect constricted. mood anxious. Thoughts linear, logical, no signs of hallucinations or delusions. Client Response/Progress/Benefit: []Client receptive of session, engaged throughout AEB client participating in discussion, asking questions, and listening to others. Client completed a worksheet where she identified personal pitfalls impacting mental health progress. Identified pitfalls as: overwhelming anxiety, dealing with tension, isolation, poor communication, and out of control circumstances. Attentive and contributing during group brainstorm of strategies to overcome pitfalls. 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 Benefited from identifying personal pitfalls and strategies to overcome these pitfalls. Client to continue IOP level of care to continue using healthy skills, improve open communication, and prevent decompensation. Narrative Note: []
--- NOTE | 2020-01-13 11:15 | BH.SGPN.GN ---
Behaviors/Verbalizations/Mental Status: []Client alert and oriented, neatly dressed and groomed. Eye contact good. Motor activity appropriate. Speech within normal limits. Affect unable to gather due to wearing a mask for COVID-19 protocol, mood dysthymic. Thoughts linear, logical, no signs of hallucinations or delusions. Client Response/Progress/Benefit: []Client responded well to session, connecting with the topic and engaged in discussion. Client attentive during psychoeducation on the change process and able to identify different emotions in each stage of change. Client identified a change he would like to make to improve his mental health which was to ?live without perfectionistic expectations.? Client reports he is currently in the precontemplation stage because ?I?m torn, anxious, and curious? about making this change. 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 Appeared to benefit from identifying what stage of change client is in and setting a small goal to promote that change. Will continue IOP tx as client has made progress, but can still benefit from reducing the intensity and duration of anxiety symptoms. Narrative Note: []
--- NOTE | 2020-01-18 09:05 | BH.SGPN.GN ---
Behaviors/Verbalizations/Mental Status: []Client alert and oriented, casually dressed. Eye contact good. Motor activity appropriate. Speech within normal limits. Affect unable to gather due to wearing a mask for COVID-19 protocol, mood anxious. Thoughts linear, logical, no signs of hallucinations or delusions. Reviewed client?s symptom tracker, risk for suicidal ideation below client?s baseline. No plan or intent plan, or intent as of 01/18/20. Client Response/Progress/Benefit: []Client responded well to session as he actively participated throughout group. Client shared he lost a close friend recently and felt depressed. Client talked with his support and realised he was not alone in his feelings of grief. Client shared that ?Sundays are the worst days of the week.? Client stated he isolates and his stress increases when client feels overstimulated by the mess and sounds of his children. Client isolated and could not remember any healthy coping skills used over the weekend. Client shared he feels very distracted and anxious this morning. Client benefited from group as he gained more self-awareness with his triggers, but client continues to struggle with all or nothing thinking that reinforces mental health symptoms. Client will continue IOP to improve daily functioning and increase the use of healthy coping skills. Narrative Note: []
--- NOTE | 2020-01-18 12:18 | PCM.BH.PN_ITS ---
Progress Note Progress Note: History of Present Illness/Interim History: [] Patient is a 44-year-old male who is seen in follow-up at the [facility] behavioral health IOP program. I last saw the patient 2 weeks ago. The patient states that he is doing better for the most part during the week. Staff says he is improving and is doing well in the program. The patient states that he still remains pretty anxious and tense at times and has lost interest or is not enjoying the things that he used to enjoy. Patient states that on the weekends he gets very irritable at home when he is home with his 5 children and his . He is very sensitive to anything that happens when he is at home. There are some marital issues and his wants him to get marriage counseling now and the patient feels that he is not ready to get it at this point. He is he also says that his libido is way down and he has not had any sexual activity with his since July 2019. This was right after he got out of rehab for alcohol. I discussed with the patient that the psych medications could also be contributing to this as is his sobriety and his history of heavy alcohol use. The patient sleep is good and he is tolerating his medications well. Current Psychiatric Medications: [] Strattera 40 mg p.o. twice a day; Remeron 30 mg p.o. nightly; vitamin D; Zyprexa 5 mg nightly and 2.5 mg every morning (this dose for 2 weeks); Flexeril 10 mg p.o. nightly (for 2 weeks). Mental Status Examination: [] Patient is a 44-year-old male who is wearing a mask due to the pandemic and appears normal and fit for stated age. He is casually dressed and groomed with good hygiene. He has no psychomotor agitation or retardation. Eye contact is good and speech is normal rate and rhythm and fluent with no pressure. Mood is mildly depressed today. Affect is full and normal. Thought processes organized and goal-directed. Thought content: No evidence of suicidal or homicidal ideation. No evidence of passive thoughts of . No evidence of hallucinations or delusions. Impulsivity: Low. Insight: Limited but improving. Judgment: Intact. Diagnoses: [] [place] I: [] Major depressive disorder, recurrent, severe without psychosis; generalized anxiety disorder; alcohol use disorder in remission on Vivitrol; benzodiazepine use disorder in remission for about 5 months [place] II: [] Deferred [place] III: [] History of migraine headache [place] IV:[]] Primary support, work issues Plan: [] Patient will continue the IOP program in behavioral health at [facility] as the support, structure, education, individual and group therapy will hopefully benefit the patient and prevent worsening of his symptoms. The risks, options and possible complications and side effects of the medications were discussed with the patient and he understands and accepts these. The patient felt safe during the interview and if at any time he is not feel safe he will let us know or go to the emergency room. Patient agrees to increase his Zyprexa to 5 mg p.o. twice daily. A prescription was sent in for this and a refill was sent in for his Flexeril prescription. Patient understand that he will need long-term therapy to deal with some of his triggers at home and in his marriage. In addition he needs to stay substance free and deal with the side effects of recently becoming sober.
--- NOTE | 2020-01-18 14:21 | BH.MDN_ITS ---
Multi-Disciplinary Note - Note 30-min Individual Time Started:: 11:33 Date: 01/18/20 Purpose of session/treatment goals addressed:: Purpose of session was to work on Treatment Plan goal # 1 objective #1 and treatment goal #2 objective #1 and #2. Eye Contact:: Good Motor Activity:: Restless Appearance:: Neat Speech:: Pressured Mood:: Anxious Affect:: Congruent Thoughts:: Linear, Logical, No evidence of hallucinations/delusions noted Staff Interventions:: Utilized [place] techniques and CBT components of cognitive restructuring. Provided education on anxiety and challenged expectations of progress. Client Response:: Pt receptive of session, engaged throughout. He reported struggling over the past few days and described himself as ?feeling like I?m on the verge of exploding?. Discussed that this is primarily when he is at home as he has been struggling to consistently engage with his and children without becoming agitated. Reports often becoming agitated about small things such as the house being messy or his children being loud. Expressed that he then desires to withdraw and isolate which upsets his . Noted he has however been working to communicate his needs and emotions with his which he feels has aided in preventing client from isolating himself and has reduced tensions between them. Shared that despite some progress in this area he continues to struggle with this significantly. Reports feeling he should be ?doing much better at this?. Discussed guilt regarding his mental health and feeling he is letting his down. Noted these emotions were further heightened when his brought up topi c of marriage counseling. Client able to work with therapist to challenge distortions associated with topic of marriage counseling and reframe this as an opportunity to grow his marriage. Remained of session focused on discussing effective communication strategies and challenging unrealistic expectations of himself and his personal progress. Risks/Concerns:: Denies any suicidal or homicidal ideations, plan, or intent. No concerns noted. Progress Toward Goals/Plan:: Pt has made progress, though at times struggles in identifying this as he often has unrealistic or exceptionally high expectations of himself. Continues to report reduced depression, though struggles with anxiety, specifically sounding interacting and maintaining relationships. R eports concerns regarding his marriage and would like to set up family session though worries his may not be agreeable. Pt to continue IOP tx to continue to maintain gains, promote further skill implementation for anxiety, and prevent decompensation. Time Stopped:: 12:35
--- NOTE | 2020-01-19 09:03 | BH.SGPN.GN ---
Behaviors/Verbalizations/Mental Status: []Client alert and oriented, neatly dressed and groomed. Eye contact good. Motor activity appropriate. Speech within normal limits. Affect unable to gather due to wearing a mask for COVID-19 protocol, mood euthymic and calm. Thoughts linear, logical, no signs of hallucinations or delusions. Reviewed client?s symptom tracker, no risk for suicidal ideation, plan, or intent as of 01/19/20. Client Response/Progress/Benefit: []Client responded well to session, attentive and engaged. Client reports feeling at peace this morning. Client shared he has been working on improving his communication with his family, especially his . Client stated there was a situation this week in which client became angry and he isolated for a bit, but then talked through it with his . Client reports he has been using exercise, self-talk, and sitting with uncomfortable feelings to manage his moods and symptoms. Appeared to benefit from reflecting on areas of growth. Will continue IOP tx as client can continue to improve emotional regulation skills and reduce distortions. Narrative Note: []
--- NOTE | 2020-01-19 11:20 | BH.SGPN.GN ---
Behaviors/Verbalizations/Mental Status: []Client alert and orient. Appearance neat, casual, and appropriately groomed. Speech an appropriate rate and tone, quiet and limited input provided. Motor activity WNL. Mood anxious and irritable, affect unable to determine as client wearing mask per COVID-19 protocol. No evidence of delusion or hallucinations.? Client Response/Progress/Benefit: [] Client receptive of group, providing some input and taking notes during discussion, though appeared less engaged than in prior sessions. Client remained passive throughout discussion on impacts of motivation sources on mental health, though able to more actively listen as group worked to identify importance of having balanced sources of motivation. Group noted benefits to include; needs getting met, continued motivation when supports aren?t available as well as using supports when internally ?exhausted?, greater sense of accountability, motivation is more sustainable, and improved ability to accomplish goals. Client again listened and took notes as group brainstorm potential strategies for improving internal motivation. Client willing to identify a specific strategy he can apply to improve his own internal motivation levels. Identified wanting to focus on working on internal motivating factor of cultivating knowledge and expanding personal learning by making time to read more often. Client appeared to benefit from increasing awareness of strategies for improving internal motivation. Progress noted in improved use of emotion regulation and communication skills, though continues to struggle in these areas as well as with challenging distorted thinking patterns. Client will continue IOP tx to further improve symptom management, promote healthy coping skill application, and improve daily functioning. Narrative Note: []
--- NOTE | 2020-01-20 09:05 | BH.SGPN.GN ---
Behaviors/Verbalizations/Mental Status: [] Client alert and oriented, casually dressed and groomed. Eye contact fair. Motor activity restless AEB bouncing knee and fidgetting throughout. Speech within normal limits. Affect unable to assess as pt wearing mask per COVID-19 protocol, mood agitated and anxious. Thoughts linear, logical, no signs of hallucinations or delusions. Reviewed client?s symptom tracker, no risk for suicidal ideation, plan, or intent as of 01/20/20. Client Response/Progress/Benefit: []Pt receptive to session, actively listening and openly processed with group though appeared mostly passive throughout. Pt reports feeling ?agitated and confused this morning which he attributed to a fight he had with his this morning. Pt discussed struggling to regulate his emotions as a result and identified that he has been ruminating on the conversation since it ended. Identified communication as the primary area of stress within the relationship and expressed frustration in the ongoing difficulties to improve in this area. Pt appeared to benefit from group support, emotion validation, and structure. Noted that he is experiencing difficulties in identifying personal wins or positives due to feeling overwhelmed by his recent stressor. Pt ongoing difficulties with absolute thinking patterns and rigid expectations continues to impede overall progress potential. Pt recommended continued IOP tx to further promote healthy change behaviors and communication skills, as well as prevent decompensation. Narrative Note: []
--- NOTE | 2020-01-20 10:20 | BH.SGPN.GN ---
Behaviors/Verbalizations/Mental Status: []Client alert and oriented, casually dressed, hygiene appeared to be tended to. Eye contact fair. Motor activity appropriate. Speech within normal limits. Affect constricted, mood agitated and dysthymic. Thoughts linear, logical, no signs of hallucinations or delusions. Client Response/Progress/Benefit: []Client passive participant AEB not providing input during discussion however appeared to listen attentively to others. Listened to group identify impact of viewing self as a failure to include: disqualifying positives, giving up, beating self-up, filter out all the good we?ve done, keeps us from analyzing why, low self-esteem, and isolation. Group reported fear of failure can lead to depression, quitting, low self-esteem, and staying stuck. Client appeared to benefit from gaining awareness of the impact of fear of failure can have on one?s mental health and wellbeing. Client participating less than usual at times appears stuck in his head which could negatively impact progress. Will continue IOP tx to prevent decompensation, reinforce healthy coping and challenge distorted thought patterns. Narrative Note: []
--- NOTE | 2020-01-20 12:52 | BH.MDN ---
Multi-Disciplinary Note - Note 45-min Individual Time Started:: 11:45 Date: 01/20/20 Purpose of session/treatment goals addressed:: In process group pt verbalized being upset and distracted due to a conversation with his this AM. He requested an individual session. Eye Contact:: Good Motor Activity:: Appropriate Appearance:: Casual Speech:: Appropriate Mood:: Anxious Affect:: Full Thoughts:: Linear, Logical, No evidence of hallucinations/delusions noted Staff Interventions:: Utilzed [place] techniques. Provided education on communication. Client Response:: Pt reports that that he woke at 3AM to find his in the living room crying. She was writing a letter to the patient regarding the belief that I was not meeting her emotional needs. Pt was shocked by this as he believed that thier relationship and communication had been improving. According to pt his identified that he was disengaged, not empathetic, not affectionate, and didn't feel like he appreciated her. This led to another conversation about her supporting the family and his struggle to find and maintain a job. Pt reports that he was blindsided by this and feels like all the problems are his fault stating I'm doing everything that I can. Insight that he could improve in areas to address her emotional needs. Discussed ways to address 's concerns. Reports being motivated. Risks/Concerns:: Denies any suicidal or homicidal ideations, plan, or intent. No concerns noted. Progress Toward Goals/Plan:: Pt has made progress over the past 5 weeks as he noted during the session. Notes decreased depression and no SI in several weeks. Feels more confident in managing his thoughts and emotions. Insight that addressing conflict is not regression but progress. Pt is agreeable with setting up an family session with IOP therapist. He also brought up concerns regarding ADHD and medications, which has been addressed by our psychiatrist. Pt has never had a comprehensive ADHD or learning disability assessment in his life. He has had reading and memory issues since childhood. Plan is to provide resources for LDA and ADHD assessment. Pt has appointment with aftercare psychiatrist Dr. Tesfaye on 02/12/20. Time Stopped:: 12:10
--- NOTE | 2020-01-25 09:00 | BH.SGPN.GN ---
Behaviors/Verbalizations/Mental Status: []Client alert and oriented, casually dressed. Eye contact good. Motor activity appropriate. Speech within normal limits. Affect unable to gather due to wearing a mask for COVID-19 protocol, mood anxious. Thoughts linear, logical, no signs of hallucinations or delusions. Reviewed client?s symptom tracker, no risk or plan for suicide ideation as of 01/25/20. Client Response/Progress/Benefit: []Client responded well to group as client engaged throughout group discussion. Client shared he did not have a goal for himself over the weekend. 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 Client recognized that his anxiety increased last time when there was a change in his schedule. 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 Client stated he himself from family two times over the weekend, as a healthy coping skill. Client recognized that the reason for isolation was healthy, as he communicated with his . Progress was noted as client gained self-awareness and used healthy coping skills. Client will continue IOP to promote the use of healthy coping skills and improve daily functioning. Narrative Note: []
--- NOTE | 2020-01-25 11:15 | BH.SGPN.GN ---
Behaviors/Verbalizations/Mental Status: [] Client alert and oriented, casually dressed and appropriately groomed. Eye contact fair to good. Motor activity appropriate. Speech within normal limits. Affect could not be assessed due to pt wearing a mask as a requirement during COVID-19 pandemic. mood euthymic and anxious. Thoughts linear, logical, no signs of hallucinations or delusions. Client Response/Progress/Benefit: [] Client engaged in session AEB client discussion and willing to complete Zones of Regulation worksheet. Attentive during psychoeducation on 4 zones of regulation. Client able to identify feelings and behaviors for each zone. Client reported when he is in the yellow zone he tends to feel tense, stressed, irritable, and distracted which has resulted in being shorter with supports. However, went on to note that he has recently been able to remain in the ?green zone? or his baseline by practicing more self-care and reaching out to supports. Group identified coping skills one can use to support self in each zone. Client reported he will practice the skills of ?being more honest with myself? and ?being more engaged? to aid in remaining in the green zone. Benefited from increased education on zones of regulation or stages of alertness for emotions and healthy coping skills to use for each zone. Progress noted in client self report of improved emotion regulation, though he continues to struggle with consistency in this area. Will continue IOP tx to continue use of healthy coping skills, challenge negative thought patterns and prevent decompensation. Narrative Note: []
--- NOTE | 2020-01-26 08:18 | BH.MDN_ITS ---
Multi-Disciplinary Note - Note 45-min Individual Time Started:: 11:39 Date: 01/27/20 Purpose of session/treatment goals addressed:: The purpose of this session was to review client current symptoms, stressors, and treatment progress. Another goal was to discuss a self-care plan for managing anxiety and irritability as pt returns to full-time employment. Additional topics included: Aftercare planning, Healthy Communication Skills Eye Contact:: Good Motor Activity:: Appropriate Appearance:: Neat, Casual Speech:: Appropriate Mood:: Euthymic, Anxious Affect:: Other - unable to assess as pt wearing a mask per COVID-19 protocol Thoughts:: Linear, Logical, No evidence of hallucinations/delusions noted Staff Interventions:: Therapist used active listening and open-ended questions to explore client's current symptoms, stressors, and application of coping skills learned. Therapist provided supportive feedback and commended client on gains made. Used strengths-based approaches to aid client in identifying progress made in regard to emotion regulation and assist with identifying skills he can continue to utilize in transitioning back to full-time employment, as well as maintain progress post IOP discharge. Therapist and client discussed the benefits of practicing self-care at the end of each workday as well as openly communicating needs and expectations with his throughout his return to work. Therapist gave client homework to place a list of distress tolerance skills in a visible location in the office. Client additionally is to contact his outpatient provider to schedule an individual counseling appointment in preparation for IOP discharge. Client Response:: Client responded well to session, open to meeting with therapist. Client shared she is feeling more positive and calm today compared to his mood last Saturday. Expressed that this is in part due to his no longer wanting to discuss the note she had left for him last week regarding her concerns, frustrations, and disappointments in the marriage. Client able to identify that ?sweeping it under the rug? is likely not going to be healthy for his relationship and noted wanting to improve their communication but continues to struggle with effectively doing so. Client went on to indicate feeling frustrated as he feels he is the only one discussing his mental health needs and would like to learn more about what his has been working on. Client noted he has not expressed this to her, however. With further discussion was able to identify benefits of discussing this with his rather than continuing to bottle it up. Worked with therapist to review healthy communication skills such as using ?I? statements, discussing concerns when calm, and not using blaming language. Client went on to discuss that his first day back to work had not gone as expected but was proud in the way he had managed it. Indicated he was able to use grounding skills, take deep breaths, and thought challenge to prevent a minor setback from escalating. Noted that in the past this would have led to an argument with his . Client shared that although he had managed this stressor in a healthy way yesterday, he is worried about his ability to do so as ad ditional stressors arise throughout client return to work. Discussed being most concerned with anxiety and irritability management. Pt worked with therapist to review triggers for irritability and anxiety in the workplace he has experienced in the past as well as discuss potential coping skills learned that would help in the moment. Client identified taking a step away from the computer and going for a walk, asking himself ?am I making a bigger deal of this than I need to??, taking deep breaths, and giving himself brain breaks throughout the day as potential health coping mechanisms. Additionally, client identified the need to engage in self-care at the end of the workday to avoid bringing work related stress back home with him. Shared that he plans to go to the gym some days and walk or find another activity to do on others. Went on to discuss that although he is able to identify healthy coping skills he is concerned about his ability to follow-through with actively implementing them. Worked with therapist to identify strategies he can use to better remember to implement healthy skills in the moment rather than revert to prior means of coping such as yelling or seeking his ?s help in completing the task so he did not have to. Client identified use of visual cues and regular reminders in his phone to engage in self-reflection and self-care throughout the workday which he will create as homework. Risks/Concerns:: Client denies any suicidal ideations, plan, or intent as of 01/26/20. Future oriented and multiple protective factors. Progress Toward Goals/Plan:: Progress noted per client self-report of improved ability to regulate emotions when faced with unexpected stressors and improved use of healthy self-care tools to regulate himself throughout the day as well. Pt continues to report a reduction in depressive sx and indicates beginning to see improvements in overall anxiety management. Shared he has been able to remain more patient when interacting with his children as well. Pt continues to struggle with commuinication and significant distorted thought that continue to impede full progress. Client is to continue IOP tx to improve in these areas as well as aid in transitioning back to full-time employment this week. Time Stopped:: 12:24
--- NOTE | 2020-01-26 09:04 | BH.SGPN.GN ---
Behaviors/Verbalizations/Mental Status: [] Client alert and oriented, neat and casually dressed and groomed. Eye contact fair to good. Motor activity appropriate. Speech within normal limits. Affect unable to assess as pt wearing mask per COVID-19 protocol, mood euthymic and anxious. Thoughts linear, logical, no signs of hallucinations or delusions. Reviewed client?s symptom tracker, no risk for suicidal ideation, plan, or intent as of 01/26/20. Client Response/Progress/Benefit: [] Pt receptive to session, actively listening and openly processed with group. Pt reports feeling ?calm this morning which he attributed to improved use of stress management and calming skills. Pt did well to identify current mental health positives which include: regulating his emotions when faced with a stressor at work as well as taking time to practice self-care with his son that evening. Identified taking a break and thought challenging as skills that aided in improving overall ability to manage stressors. Discussed that returning to work continues to be a stressor and was receptive of feedback provided by group regarding skills for easing the transition. Pt appeared to benefit from group support, emotion validation, and structure. Progress noted in improved emotion regulation skill application. Pt recommended continued IOP tx to further promote healthy change behaviors and communication skills, as well as prevent decompensation. Narrative Note: []
--- NOTE | 2020-01-26 10:13 | BH.SGPN.GN ---
Behaviors/Verbalizations/Mental Status: []Client alert and oriented, casual dress, hygiene tended to. Eye contact good. Motor activity appropriate. Speech within normal limits. Affect unable to gather due to wearing a mask for COVID-19 protocol, mood anxious and dysthymic. Thoughts linear, logical, no signs of hallucinations or delusions. Client Response/Progress/Benefit: []Client responded well to session, attentive and occasionally contributing to discussion. Client worked cooperatively with the group to identify factors that contributed to how we define ourselves which included: upbringing, societal expectations, culture/environment, how well we function, failures, trauma, and how others view us. Client reported he has experienced the impacts of mental health stigma and used the example of being called ?crazy.? Client worked with group to identify and discuss social and perceived stigma. Client seemed to benefit from increased awareness of how mental health stigma can impact progress and self-worth. Client to continue IOP tx to further improve distress tolerance, improve mood stability, and increase daily functioning. Narrative Note: []
--- NOTE | 2020-01-27 09:00 | BH.SGPN.GN ---
Behaviors/Verbalizations/Mental Status: []Client alert and oriented, casually dressed and appropriately groomed. Eye contact fair. Motor activity appropriate. Speech within normal limits. Affect constricted, mood euthymic. Thoughts linear, logical, no signs of hallucinations or delusions. Client Response/Progress/Benefit: []Pt engaged participant AEB pt listening attentively to others and sharing thoughts and feelings. Pt stated yesterday he realized he was feeling easily agitated and started to be snappy towards his family. Pt reported he realized he did not take his medications earlier in the day. Pt stated he used a body scan which helped him realize he needed to take a break. Pt reported he used mindfulness, grounding and thought challenge to help decrease his agitation and get in a better mindset. Pt reported he was able to return to being around his in a much better mood. Progress noted with increased self-awareness of emotions and utilization of healthy coping. Pt to continue IOP to continue use of coping, challenge distorted thoughts and prevent decompensation. Narrative Note: []
--- NOTE | 2020-01-27 10:03 | BH.SGPN.GN ---
Behaviors/Verbalizations/Mental Status: []Client alert and oriented, neat and casually dressed. Eye contact good. Motor activity appropriate. Speech within normal limits. Affect could not be assessed due to pt wearing a mask as a requirement during COVID-19 pandemic. Mood euthymic. Thoughts linear, logical, no signs of hallucinations or delusions. Client Response/Progress/Benefit: []Pt remained an active participant throughout session AEB pt providing input to discussion/asking questions, taking notes, and willing to complete worksheet. Group discussed impacts of anger on mental health and identified triggers of anger to include: feeling disrespected by others, feeling overwhelmed/stressed, high expectations of self, anxiety, grief, and feeling out of control. Pt shared connecting with topic of anger and noted that this is often how he expressed his emotions. Shared his emotions underlying anger include: anxiety/stress, guilt, feeling invalidated, and feeling helpless/out of control of a situation. Group discussed common ways anger is expressed and Pt identified the following ways he expresses anger: being passive-aggressive, slamming things, and having a ?set jaw?/ Pt seemed to benefit from increased awareness of how unmanaged anger can impact self and others. Progress noted in pt self-report of improved mood and anxiety management, though continues to struggle with consistent skill application, communication, and distorted thinking impacting progress. Pt to continue IOP to increase ability to challenge thoughts, increase internal healthy coping skills, improve communication with supports and prevent decompensation. Narrative Note: []
--- NOTE | 2020-01-27 11:10 | BH.SGPN.GN ---
Behaviors/Verbalizations/Mental Status: []Client alert and oriented, casually dressed and groomed. Eye contact good. Motor activity appropriate. Speech within normal limits. Affect unable to gather due to client wearing a mask for COVID-19 protocol. mood euthymic. Thoughts linear, logical, no signs of hallucinations or delusions. Client Response/Progress/Benefit: []Client was an engaged participant throughout group. Client helped the group identify common warning signs of anger and identified personal warning signs of anger which included: clenched jaw, tension, and stomach issues. Group brainstormed with group healthy coping skills to help manage anger which included: deep breathing, opposite action, exercise, taking breaks, music, slow tempo, and communication with supports. Client selected communicating breaks with his , thought stopping, and slowing his tempo as the coping skills client wants to incorporate this week to manage anger. Client appeared to benefit from identifying different techniques to manage anger as well as gaining awareness of warning signs. Progress noted as client reports improved ability to sit with uncomfortable emotions and challenge distortions. Will continue IOP tx to promote gains, further improve mood stability, and increase daily functioning. Narrative Note: []
--- NOTE | 2020-02-03 11:20 | BH.SGPN.GN ---
Behaviors/Verbalizations/Mental Status: [] Client alert and oriented, casually dressed and groomed. Eye contact good. Motor activity appropriate. Speech within normal limits, quiet. Affect congruent, mood euthymic and anxious. Thoughts linear, logical, no signs of hallucinations or delusions Client Response/Progress/Benefit: []Client responded well to session, actively listening and taking notes as the group discussed the different categories of coping skills which included distraction, emotional release, grounding, self-love, and thought challenging. Appeared to connect with examples provided by fellow participants for each coping category, though remained mostly passive. Client wrote down several examples shared by fellow participants and nodded as others discussed the importance of progressive muscle relaxation. Client participated in creating a coping skills ?menu? for the five categories of coping skills. Client's coping skill menu included: exercise, music, getting appropriate sleep, and deep breathing. Shared wanting to focus on more active application of healthy emotion regulation skills by more actively applying deep breathing techniques. Client progress noted in self-report of improved communication with his supports and decreased depressive sx. Appeared to benefit from increasing repertoire of healthy coping skills. Will continue tx to further improve mood stability and communication skills, as well as prevent decompensation. Narrative Note: []
--- NOTE | 2020-02-03 11:37 | BH.MDN_ITS ---
Multi-Disciplinary Note - Note 45-min Individual Time Started:: 09:10 Date: 02/03/20 Purpose of session/treatment goals addressed:: Purpose of session was to work on Treatment Plan goal # 1 objective #2 and treatment goal #2 objective #2. Eye Contact:: Good Motor Activity:: Appropriate, Restless - at times shaking knee/leg during discussion and fidgetting with hands Speech:: Appropriate Mood:: Euthymic, Anxious Affect:: Full Thoughts:: Linear, Logical, No evidence of hallucinations/delusions noted Staff Interventions:: Asked open ended and furthering questions to gather information on current sx, stressors, and treatment progress. Utilized CO techniques and CBT components of cognitive restructuring. Provided supportive feedback and commended pt on gains made. Worked with pt to begin reviewing his aftercare maintenance plan. Client Response:: Pt receptive of session, engaged throughout. He reported doing well over the past few days and discussed continuing to feel he has been making progress in his overall ability to manage mental health sx. Pt discussed improved ability to cope with moments in which he experiences ?unexpected agitation?. Provided an example of a moment he felt agitated ?out of nowhere? earlier in the week and shared coping skills used for managing his emotions in the moment. Expressed making a point of communicating with his and working to pinpoint potential triggers. Shared communication with his has continued to improve, specifically in area of pt emotions. Went on to discuss his return to work and shared that Saturday and Saturday had been positive experiences, however he had difficulties focusing on occasion. Open to reviewing skills he could use to improve attention and focus in the workplace. Identified taking breaks from the environment and then coming back, objects he could use as visual reminders to focus, and creating small time goals. Pt noted feeling more confident in his ability to maintain progress following IOP discharge next week. Reviewed coping skills he has found helpful and discussed aftercare plans. Shared plans to continue with marriage counseling as this has been a positive experience thus far, establish outpatient counseling, and begin the [facility] Aftercare Program. Agreeable to reach out to one of the outpatient counselors pt has been referred to by this therapist. Risks/Concerns:: Denies any suicidal or homicidal ideations, plan, or intent. No concerns noted. Progress Toward Goals/Plan:: Pt has made progress, continues to work on improving his ability to manage emotions and effectively cope with stressors in the moment. Continues to struggle at times with effective communication, but is working to further improve this with his in outpatient marriage counseling. Identified increased ability to manage anxious thoughts and continues to report reduced depression. Will continue IOP tx to prevent decompensation, reduce intensity of symptoms, and continue to improve daily functioning while establishing outpatient counseling services. Time Stopped:: 10:00
--- NOTE | 2020-02-05 09:05 | BH.SGPN.GN ---
Behaviors/Verbalizations/Mental Status: []Client alert and oriented, casually dressed. Eye contact good. Motor activity appropriate. Speech within normal limits. Affect unable to gather due to wearing a mask for COVID-19 protocol, mood euthymic. Thoughts linear, logical, no signs of hallucinations or delusions. Reviewed client?s symptom tracker, no risk or plan for suicide ideation as of 02/05/20. Client Response/Progress/Benefit: []Client responded well to group, engaged and participated throughout discussion. Client shared he did not get the opportunity to work on his goal of replacing isolation with breathing techniques. Client shared feeling ?peaceful? and shared his positives as spending time with his family and a stressor is being mentally present in the quality time spent with his and children. Client benefited from group today as he offered feedback to other group members and recognized his self-awareness with IOP program. Client will continue IOP to increase the use of healthy coping skills and improve daily functioning. Narrative Note: []
--- NOTE | 2020-02-05 10:20 | BH.SGPN.GN ---
Behaviors/Verbalizations/Mental Status: []Client alert and oriented, neat and casual dress, hygiene tended to. Eye contact fair to good. Motor activity tense. Speech within normal limits. Affect constricted. Mood anxious, euthymic. Thoughts linear, logical, no signs of hallucinations or delusions. Client Response/Progress/Benefit: []Pt responded well to session AEB pt taking notes, providing input during discussion about quote, and expressing areas in which he has struggled with rigidity in the past. Pt shared ?we become like firewood when we resist?. He worked with the group during discussion of the costs of resisting change and the benefits of adapting to adversity. Group identified costs of resisting change included: staying stuck, difficulty managing crises, not seeing opportunities to improve current situation, and decrease in self-care. Attentive during psychoeducation on various bailey factors in developing personal resilience. Pt reported not seeing crisis as insurmountable can increase resilience because we feel more capable of finding solutions and are less likely to fixate on the negatives. Pt seemed to benefit from increasing awareness of strategies to increase personal resilience and the impacts of resilience on managing mental health sx. Will continue IOP tx to promote the use of healthy coping skills, challenge distorted thoughts, and prevent decompensation. Narrative Note: []
== END 2020-02-06 23:59 ==
LOC: BHIOP 09:00
PROVIDERS: PCP Family Medicine; Referring Provider Psychiatry & Neurology Psychiatry; Visit Provider Psychiatry & Neurology Psychiatry
DX: F33.2 Major depressive disorder, recurrent severe without psychotic features (principal); F41.8 Other specified anxiety disorders; F10.21 Alcohol dependence, in remission; Z79.899 Other long term (current) drug therapy
CPT/HCPCS: H0035; 90834; 90837; 90853

== ENCOUNTER 2020-02-10 09:00 | Outpatient (RCR) | payer OTHER, SELFPAY ==
[2020-02-07 00:30] VITALS: BP 131/85; PULSE 82
--- NOTE | 2020-02-10 09:00 | BH.SGPN.GN ---
Behaviors/Verbalizations/Mental Status: []Client alert and oriented, casually dressed and groomed. Eye contact good. Motor activity WNL. Speech within normal limits. Affect congruent, mood anxious and euthymic. Thoughts linear, logical, no signs of hallucinations or delusions. Reviewed client?s symptom tracker, no risk for suicidal ideation, plan, or intent as of 02/10/20. Client Response/Progress/Benefit: []Pt responded well to session, actively listening throughout and openly processed with group. Pt reports feeling ?anxious this morning and shared that this is due to an upcoming appointment with a new psychiatrist. Discussed that he typically struggles with the unknown but that he has been reminding himself that if the appointment does not go as he hopes he can always continue to look for a good fit elsewhere. Pt did well to identify current mental health wins which included being able to engage more with his youngest daughters and actually feel present while doing so, as well as continuing to ?push myself to be in environments where I have to be more present?. Expressed this has helped with his overall mood and relationships with supports. Shared that positive [id number] and grounding have been skills most beneficial in continuing to make treatment progress. Appeared to benefit from group support and structure. Progress noted in overall improved application of in the moment emotion regulation skills, though continues to struggle with consistently challenging distortions of personalization and catastrophizing. Recommended continued IOP tx to further continue to promote continued application of mood management skills as well as prevent decompensation. Narrative Note: []
--- NOTE | 2020-02-10 12:09 | PCM.BH.PN_ITS ---
Progress Note Progress Note: History of Present Illness/Interim History: [] Patient is a 44-year-old male who is seen in follow-up at the [facility] behavioral health IOP program. I last saw the patient 3 weeks ago. Patient states that he is doing pretty well. His mood is more stable than it was and he is much less irritable at home. He also feels that he is much less anxious overall since increasing his Zyprexa for the past 3 weeks. His sleep has improved also and is sleeping currently about 7 hours a night. His weight is stable. He still complains that he is not enjoying many things like he used to. He denies suicidal or homicidal ideation or passive thoughts of . He denies having any urges to drink alcohol or use benzos. He has been compliant with his medications including the Vivitrol. He is still struggling with decreased memory and decreased concentration and feels that after he saw his neurologist for consult last week that maybe he needs a stimulant for ADD. The neurology results were in the chart and basically he is felt to have possible ADD and no evidence of CTE was seen at this time. Current Psychiatric Medications: [] Strattera 40 mg p.o. twice a day; Remeron 30 mg p.o. nightly; vitamin D; Zyprexa 5 mg p.o. twice daily (x3 weeks now); Flexeril 10 mg p.o. nightly at at bedtime (x5 weeks now). Mental Status Examination: [] Patient is a 44-year-old male who is seen wearing a mask due to the pandemic and appears normal for stated age. He is casually dressed and groomed with good hygiene. He has no psychomotor agitation or retardation. Eye contact is good and speech is normal rate and rhythm and fluent with no pressure. Mood is mildly depressed. Affect is full and normal. Thought process is organized and goal-directed. Thought content: No evidence of suicidal or homicidal ideation or passive thoughts of . No evidence of hallucinations or delusions. Impulsivity: Low. Insight: Limited but improving. Judgment: Intact. Diagnoses: [] Jasper I: [] Major depressive disorder, recurrent, severe without psychosis; generalized anxiety disorder; alcohol use disorder in remission on Vivitrol; benzodiazepine use disorder in remission for about 6 months. Rule out attention deficit disorder Jasper II: [] Deferred Jasper III: [] History of migraine headaches Jasper IV:[]] Primary support and work issues Plan: [] Patient will continue the IOP program but may be discharged next week if his improvement continues. He felt safe during the interview and if at any time he does not feel safe he will let us know or go to the emergency room. The risks, options, possible side effects and complications of the medications were discussed with the patient and he understands and accepts these. He also understands the importance of staying sober from all drug use that is nonprescribed. The patient was offered an option of increasing his Strattera to 50 mg twice a day or 60 mg in the morning and 40 mg in the afternoon evening. The patient wants to wait until he sees his psychiatrist Dr. Tesfaye in 2 days as the patient feels that possibly his psychiatrist will prescribe him a stimulant for his ADD symptoms. Patient plans to do individual counseling, our aftercare program here, and continue his substance counseling. He will continue to follow-up with his outpatient psychiatric and medical providers. No medication changes were made today.
--- NOTE | 2020-02-10 20:30 | BH.MDN ---
Multi-Disciplinary Note - Note 30-min Individual Time Started:: 10:36 Date: 02/10/20 Purpose of session/treatment goals addressed:: The purpose of this session was to assess current symptoms, stressors, and treatment progress. Another purpose was to review aftercare plan and review strategies for success following discharge. Eye Contact:: Good Motor Activity:: Appropriate Appearance:: Neat, Casual Speech:: Appropriate Mood:: Euthymic, Anxious Affect:: Full Thoughts:: Linear, Logical, No evidence of hallucinations/delusions noted Staff Interventions:: Therapist asked open ended and furthering questions to elicit information regarding client perception of current symptoms, stressors, application of coping skills, and treatment goal progress. Provided supportive feedback and used strengths-based approaches to assist pt in identifying areas of progress. Reviewed DSM-5 scores and discussed specific skills to aid in continued progress. Used OR techniques to promote healthy change behaviors and aid in identifying barriers as well as strategies for ongoing tx progress. Worked with client to review discharge planning. Client Response:: Client was receptive of meeting with therapist and responded well to session. He shared feeling proud of the progress he has made since beginning IOP tx in December. Client discussed feeling much more empathetic towards others who struggle with their mental health now that he has experienced mental health struggles himself. Went on to indicate ?I never want to go back to feeling the way that I did. That was the worst I?ve ever felt in my life?. Reflected on areas in which he feels he made the most progress which included: reduced depression and anxiety, improved emotion regulation and stress management, as well as increased engagement in his personal relationships. Client shared pride in the personal efforts he put into his overall progress. Did well to identify potential barriers to ongoing progress as well as review strategies for maintaining gains made. Noted that continuing with outpatient individual and marriage counseling will be most beneficial to continued progress, as well as discussed plans to begin [facility] Aftercare program next , 02/18/20. Client noted that regular check-ins, taking breaks for self-care, thought challenging as well as continuing to work with his on improving communication will be crucial to continued mental health progress. Risks/Concerns:: No risks or concerns noted. Pt denies any active SI, plan, or intent as of this date. 02/10/20. Progress Toward Goals/Plan:: Progress noted. Pt shared continued improvements in overall mood management, increased ability to manage daily stressors and communicate both with himself and his supports, as well as continued improvements in changing the way he speaks himself. Discussed increased self-compassion by challenging himself to focus more on accepting that he does not have control off other?s opinions or behaviors and instead focus more on the positives and things in his control rather than uncontrollable. Discussed improved confidence in ability to follow through with goals, challenge negative thoughts, and use healthy emotion regulation skills when agitated or stressed out. Pt to discharge from program given progress and is to continue outpatient tx with [facility], as well as establish with [facility] for outpatient individual and trauma counseling. Additionally scheduled to start the [facility] After Care program next week. Time Stopped:: 11:10
--- NOTE | 2020-02-12 09:05 | BH.SGPN.GN ---
Behaviors/Verbalizations/Mental Status: [] Client alert and oriented, casual dress, hygiene tended to. Eye contact good. Motor activity appropriate. Speech within normal limits.Affect constricted, mood anxious and euthymic. Thoughts linear, logical, no signs of hallucinations or delusions. Reviewed client?s symptom tracker, pt denies current suicidal thoughts or intention to date. Client Response/Progress/Benefit: []Patient responded well to session as evidenced by him listening to others, providing feedback, and sharing thoughts and feelings. Patient stated his emotion as grateful but anxious. Patient explained it is his last day in IOP tx and he has been able to reflect on positive areas of progress but is worried about maintaining gains post discharge. Discussed feeling more confident knowing that he has the aftercare program and outpatient counseling for continued support. Identified progress made throughout tx as improved ability to sit with the uncomfortable, better acceptance of what is out of his control, and increased ability to challenge use of personalization. Patient seem to benefit from expressing thoughts and feelings, as well as reflecting upon progress to others. Given progress made, patient to discharge from [facility] and begin aftercare tx next week to maintain consistent application of skills, continue to work on anxiety management, and prevent decompensation. Narrative Note: []
--- NOTE | 2020-02-12 10:18 | BH.SGPN.GN ---
Behaviors/Verbalizations/Mental Status: []Client alert and oriented, neatly dressed and groomed. Eye contact good. Motor activity appropriate. Speech within normal limits. Affect congruent, mood euthymic. Thoughts linear, logical, no signs of hallucinations or delusions. Client Response/Progress/Benefit: []Client active participant as shown by active listening and contributing to discussion. Client contributed to the discussion of self-care and the consequences of not practicing self-care. Client agreed with peers that it is important to practice self-care, but that it has been historically difficult for client to practice. Client helped the group discuss consequences of not practicing self-care such as: poor physical health, poor work performance, and poor emotional regulation. Client participated in the discussion of the common myths about self-care. Client participated in the discussion on debunking of these myths. Client?s group challenged the myths that self-care takes too much time and means a person is ?lazy.? Client seemed to benefit from increased awareness of the importance of self-care and challenging common myths that prevent practicing self-care. Will discharge from IOP today as client has made significant progress and no longer meets criteria for IOP level of care. Narrative Note: []
--- NOTE | 2020-02-12 11:20 | BH.SGPN.GN ---
Behaviors/Verbalizations/Mental Status: []Client alert and oriented, casually dressed, hygiene appeared to be tended to. Eye contact fair. Motor activity appropriate. Speech within normal limits. Affect constricted, mood euthymic. Thoughts linear, logical, no signs of hallucinations or delusions. Client Response/Progress/Benefit: []Client active participant AEB client providing input during discussions and listened attentively to peers. Participated in some group discussion on the various areas of self-care, benefits, and types of self-care activities for each area. Client completed worksheet in which he identified current self-care practices and what self-care activities he wants to start using. Client reported he will focus on improving his spiritual self-care by reading the bible every morning for 30 minutes. Client reported he believes this will benefit him by setting a positive tone for the day. Progress noted as client has been able to increase application of healthy coping skills and improved mood stability. client has made significant progress since starting IOP and will discharge today. Narrative Note: []
--- NOTE | 2020-02-12 20:30 | BH.AFTERPLAN ---
Aftercare Plan - Demographics Psychiatrist:: Ledy Saravia Psychiatrist Office #:: [phone] [facility] Therapist:: Bianka Ho Therapist Phone #:: [phone] - Medications Home Medications: Home Medications Atomoxetine HCl [Strattera] 40 mg PO BID 12/16/19 Cholecalciferol (VIT D3) [Vitamin D3] 1,000 tab PO DAILY 12/16/19 Mirtazapine [Remeron] 30 mg PO QHS 12/16/19 Testosterone 1 tab PO BID 12/16/19 meloxicam 15 mg tablet 15 mg PO DAILY #30 tab 12/23/19 cycloBENZAPRine HCl [Flexeril] 10 mg PO TID 30 Days #30 tab 01/18/20 - Plan Details Progress/Aftercare Plan Details:: Since beginning the IOP program, Pt has made notable progress in treatment AEB reduction in overall DSM-5 scores from admission to discharge, as well as pt self-report of reduced depressive and anxiety, as well as an improved ability to better cope with overall mental health and daily stressors. Per pt, he noted a reduction in sx of depression, anxiety, irritability, ruminating thoughts impacting his mood stability and ability to effectively communicate with support, and a reduction in negative thought patterns which had been contributing to overall depression at time of admission. At time of discharge, pt reported feeling more capable of recognizing triggers impacting his mood, increased ability to use grounding and calming skills to better regulate his emotions, as well as increased ability to challenge anxiety provoking thoughts and sit with the uncomfortable which pt attributes to much of his progress. Pt additionally discussed improvements in his ability to communicate with his which has reduced unnecessary conflict and also helped pt feel more connected with the family unit as a whole. Pt progress additionally noted in his overall DSM-5 scores. Pt saw a 38% reduction of overall DSM-5 scores. Since beginning the IOP program, his scores for depression reduced by 50%, anxiety scores decreased by 43%, and a 50% in irritability. While in the IOP program, pt attended consistently and remained an active participant in group therapy. He did well to become more open to materials learned and provided increased input as well as became more willing to engage in challenge activities. Pt often struggled with distorted thoughts, specifically personalization, which at times impeded overall ability to remain fully engaged in the treatment process. Pt rumination impacted his ability to make as much progress in treatment as possible and could be a potential barrier to continued progress in the future. Strategies for Success:: ?Opposite Action!!! ? do what will help you, even when your brain is saying don?t do it, even when it feels uncomfortable, even when you are tempted to take the easy or avoidant way out. ?Challenge yourself to sit with the uncomfortable ? it?s the only way to begin to turn it into something comfortable! ?Challenge negative thought patterns by trying to look at things from the other perspective. And using those thought challenge tools! ?Keep making SMART goals and checking yourself when expectations become unrealistic. Make short term goals. ?Continue to remind yourself to use positive self-talk. ?Small steps to physical, mental, and emotional wellness. Check-in with yourself regularly in order to identify what may be stressing you out and allow yourself to take small breaks if you find yourself getting overwhelmed or agitated. ? COMMUNICATE, COMMUNICATE, COMMUNICATE! - Appointments Appointments/Referrals to Other Services:: 1. Continue with at [facility] for ongoing psychiatry, first appointment is today, 02/12/20. 2. Pt encouraged to continue with regular individual outpatient mental health treatment. Pt reports his current provider at [facility] is not a good fit and would like to pursue additional options. He was provided with multiple outpatient counseling agencies in the area and reports plans to follow-up with Felicity Hart at [facility]. 3. Aftercare program begins on 02/18/20 with [facility]. This can be helpful for continued maintenance and pt has been encouraged to participate.
--- NOTE | 2020-02-12 20:30 | BH.DS ---
Discharge Summary - Demographics Date of Admission:: 12/15/19 Discharge Date: 02/12/20 Presenting Problems at Admission:: Client is a 44-year-old male who has a history of depression, anxiety, alcohol and benzodiazepine dependence, and possible ADD. Patient has been sober for 4 month following completion of residential substance use treatment in August 2019 and substance specific IOP tx at [facility]. Client is currently working with a therapist at [facility] for ongoing substance use counseling and has a psychiatrist on consult at [facility]. Client was referred to [facility]?s IOP program due to worsening mental health symptoms over the past two months. Client reports that he has been struggling with increased distorted thinking patterns and noted often experiencing thoughts of ?everyone would be better off without me? or ?I am a burden?. Client reports passive thoughts of though denies any active SI, plan, or intent. At time of admission, Client reports his primary symptoms to include intrusive thoughts, feeling hopeless, worthless and increasing depression and isolation. Additionally, notes reduced sleep, irritability, relationship tension, increased worry, reduced concentration, emotional numbness, anhedonia, and poor memory. Reports his only means for coping right now is exercise and that nothing else seems enjoyable. He denies homicidal ideation, hallucinations or delusions. He does describe a mild paranoia which consists of him feeling that people do not like him or they will not approve of something he does. Client's symptoms are causing significant impairment in client's social, occupational, and family functioning. Discharge Diagnoses:: Major depressive disorder, recurrent, severe without psychosis; generalized anxiety disorder; alcohol use disorder in remission Reason for Discharge:: Pt has made significant progress in treatment and no longer meets medical necessity for [facility] level of care. - Treatment Progress During Treatment & Response: Since beginning the IOP program, Pt has made notable progress in treatment AEB reduction in overall DSM-5 scores from admission to discharge, as well as pt self-report of reduced depressive and anxiety, as well as an improved ability to better cope with overall mental health and daily stressors. Per pt, he noted a reduction in sx of depression, anxiety, irritability, ruminating thoughts impacting his mood stability and ability to effectively communicate with support, and a reduction in negative thought patterns which had been contributing to overall depression at time of admission. At time of discharge, pt reported feeling more capable of recognizing triggers impacting his mood, increased ability to use grounding and calming skills to better regulate his emotions, as well as increased ability to challenge anxiety provoking thoughts and sit with the uncomfortable which pt attributes to much of his progress. Pt additionally discussed improvements in his ability to communicate with his which has reduced unnecessary conflict and also helped pt feel more connected with the family unit as a whole. Pt progress additionally noted in his overall DSM-5 scores. Pt saw a 38% reduction of overall DSM-5 scores. Since beginning the IOP program, his scores for depression reduced by 50%, anxiety scores decreased by 43%, and a 50% in irritability. While in the IOP program, pt attended consistently and remained an active participant in group therapy. He did well to become more open to materials learned and provided increased input as well as became more willing to engage in challenge activities. Pt often struggled with distorted thoughts, specifically personalization, which at times impeded overall ability to remain fully engaged in the treatment process. Pt rumination impacted his ability to make as much progress in treatment as possible and could be a potential barrier to continued progress in the future. Issues Still to be Addressed:: Pt could benefit from continued focus on reinforcing healthy coping skills, challenging distorted thoughts causing rumination and impacting his overall self-esteem , as well as relationships with others. Pt could additionally benefit from additional treatment focusing on improving emotion regulation, increasing anxiety management skills, and reviewing healthy calming skills. Pt additionally recommended ongoing couple?s counseling as well as AOD treatment to continue to make progress in these areas. Discharge Recommendations/Instructions:: 1. Continue with at [facility] for ongoing psychiatry, first appointment is today, 02/12/20. 2. Pt encouraged to continue with regular individual outpatient mental health treatment. Pt reports his current provider at [facility] is not a good fit and would like to pursue additional options. He was provided with multiple outpatient counseling agencies in the area and reports plans to follow-up with Felicity Hart at [facility]. 3. Aftercare program begins on 02/18/20 with [facility]. This can be helpful for continued maintenance and pt has been encouraged to participate. Discharge Handout: Complete Discharge Handout with client on aftercare options and continuity of care.
== END 2020-02-12 14:00 | disposition home or self-care (01) ==
LOC: BHIOP 09:00
PROVIDERS: PCP Family Medicine; Referring Provider Psychiatry & Neurology Psychiatry; Visit Provider Psychiatry & Neurology Psychiatry
DX: F33.2 Major depressive disorder, recurrent severe without psychotic features (principal); F41.8 Other specified anxiety disorders; F10.21 Alcohol dependence, in remission; Z79.899 Other long term (current) drug therapy
CPT/HCPCS: H0035; 90832; 90853

== ENCOUNTER 2020-02-18 13:50 | Outpatient (RCR) | payer OTHER, SELFPAY ==
--- NOTE | 2020-02-26 10:36 | BH.PSA_ITS ---
Source of Information - Presenting Problems/Circumstances Problems, Referral Source, Mental Status, Client: Client is a 44-year-old male who has a history of depression, anxiety, alcohol and benzodiazepine dependence, and possible ADD. Patient has been sober for 4 month following completion of residential substance use treatment in August 2019 and substance specific IOP tx at [facility]. Client is currently working with a therapist at [facility] for ongoing substance use counseling and has a psychiatrist on consult at [facility]. Client was referred to [facility] IOP program due to worsening mental health symptoms over the past two months. Client reports that he has been struggling with increased distorted thinking patterns and noted often experiencing thoughts of ?everyone would be better off without me? or ?I am a burden?. Client reports passive thoughts of though denies any active SI, plan, or intent. At time of admission, Client reports his primary symptoms to include intrusive thoughts, feeling hopeless, worthless and increasing depression and isolation. Additionally, notes reduced sleep, irritability, relationship tension, increased worry, reduced concentration, emotional numbness, anhedonia, and poor memory. Reports his only means for coping right now is exercise and that nothing else seems enjoyable. He denies homicidal ideation, hallucinations or delusions. He does describe a mild paranoia which consists of him feeling that people do not like him or they will not approve of something he does. Client's symptoms are causing significant impairment in client's social, occupational, and family functioning. Psychiatric Presentation - Psych Issues & Need for Admission Psychiatric Issues:: Anxiety, Depression, ADD, intrusive thoughts, mood swings/irritability Past Psychiatric History - Treatment Hx Treatment History: No prior counseling experiences. Pt recently completed an IOP program for Substance Abuse prior to admission to [facility] IOP program. Denies ongoing outpatient AOD counseling or treatment. No current psychiatry, however was seen by psychiatrist for consult at [facility] prior to IOP admission. First hospitalization:: Denies prior psychiatric hosp. Most recent hospitalization:: Denies Medication Trials:: Yes - gabapentin, trazodone, amitriptyline (which was awful); Celexa 40 mg, Seroq ECT Therapy:: No Age of first mental health symptoms: Reports experiencing anxiety and feeling socially isolated from a young age. Shared struggling with social anxiety throughout grade school and not feeling like he belonged which may have contributed to poor self-esteem and periods of mild depression. Denies ever seeking counseling services however. Current providers for mental health treatment (counselor, psychiatrist, caser, etc.): None noted Development & Family of Origin - Childhood Significant Childhood Events: Reports his childhood was good but that he often struggled in school. Shared his teachers were often mean to him when he struggled and that his father had very high expectations of him. Shared his father would be mean to him when he did not do well in school. Reports feeling he had a learning disability but was never tested. Reports struggling to connect with others and often felt socially isolated. - Family Who currently lives in your home?: Pt lives at home with his and 5 children. Describe family composition:: Pt is the oldest of two children. He has a sister 2 years younger than him. Reports his parents remain . He has been to his for 16 years. They have 5 children together. - Family History Family Hx of Psychiatric or AOD Problems: There are no diagnosed psychiatric issues in his family, however has a maternal grandfather and uncles who are alcoholic. His but his paternal grandfather has anxiety. 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 Mental Status - Memory Recent Memory: Fair Remote Memory: Fair - Concentration Concentration: Fair - Eye Contact Eye Contact: Good - Speech Speech: Congruent - Thought Process Thought Process: Logical Insight: Fair Judgment: Fair Behavior: Anxious - Orientation Orientation: Time, Person, Place, Situation - Appearance Appearance: Neat/clean - Mood Mood: Anxious, Depressed - Affect Affect: Alert, Appropriate/calm Suicide Assessment - Suicidal Ideation Have you ever felt like hurting yourself?: No Were you using ETOH/drugs at the time?: No Suicidal Intentional Rating Scale (SIRS): No suicidal thoughts (past or present) Physician Notification: If Active suicidal thoughts/Will not contract for safety is checked, contact physician and document in the Physician Notification section below. Violent Behavior/Abuse History - Homicidal Ideation Do you have any homicidal thoughts? If so, explain:: No Is there a known potential victim? If yes, who:: No - Abuse Have you ever been abused?: No Please explain:: Denies any abuse however self-describes his father as having very high expectations of client and reports he would become significantly verbally upset with him if client did not meet these expectations. - Life Events Are there any other significant life events?: Financial loss - Due to client currently taking time off from work to clolete substance abuse rehab and then the [facility] program - Safety Do you ever feel threatened in your home? If yes, describe:: No Substance Use - Substance Substance Use Type: Alcohol - 6-8 per day for several years, currently sober 4 months, Benzodiazepines - beginning in 2019. taking 9mg per day at [facility] usage - Specific Drugs What specific drugs have you used?: beer and xanax - Extent of Use What quantity of substances have you used?: 6-8 beers per night (currently sober 4 months); 9 mg Xanax per day (currently 4 months sober) - Duration of Use How long have you used substances?: age 19 began alcohol use - Withdrawal History Withdrawal History: Sweats, Tremors - IV Substance Use Do you have a history of IV use?: denies Leisure/Social Activities - Interests What do you enjoy or might be interested in learning about?: enjoys airplanes, sports, spending time with family, his marcella, fantasy football, movies. Interested in learning more on his specific dx, ADHD, and startagies for managing intrusive thoughts Education & Occupational Histo - Education What is your level of education?: Bachelor Degree - Completed a BA in Marketing Do you have any learning disabilities?: Yes - ADHD though was not diagnosed until adulthood - Occupation List any current or past employment:: Currently works with his at her [employer]. 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 Service - Service Have you ever been in the ?: No Legal History - Records Have you had any past legal charges?: No Do you have any current legal charges?: No Have you ever been incarcerated? If yes, describe:: No - Court Orders Have you had any past court orders for psychiatric treatment?: No Do you have a present court order for psychiatric treatment?: No Problem Checklist - Current Problem Areas Problem List: Pain management, Depressed mood/sad, Anxiety, Anger/aggression - self-describes as being irritable frequently, Inattention, Mood swing s/hyperactivity, Substance use - recently 4 months sober following residential tx, Sleep problems, Additional psychosocial stressors - marital issues Discharge Planning Needs - Anticipated Follow-Up Family and Caregiver Contacts:: Release of Information Signed:: Yes [facility] - Client's Needs What are the client's feelings about the program?: Reports anxiety about the IOP program but is hopeful to improve overall mental health What are the client's goals?: lient expressed he would like to work on being able to ?slow down? and not feel so restless during times of relaxation, improve his ability to feel connected and present with his family, as well as better manage his emotions when feeling irritable or depressed. What are the client's strengths?: Client presents as a kind, amiable, and motivated to improve his mental health symptoms. Client is connected with outpatient counseling and psychiatry services. Client reports support from his and identifies his friends as supportive as well. Client is currently 4 month sober and has had some experience with IOP counseling through substance use recovery. Client is knowledgeable of some coping skills and willing to learn alternative ways to manage mental health symptoms. Diagnoses - Diagnoses Diagnosis #1:: Major depressive disorder, recurrent, severe without psychosis Diagnosis #2:: generalized anxiety disorder Diagnosis #3:: alcohol use disorder in remission Diagnosis #4:: benzodiazepine use disorder in remission Interpretive Summary - Interpretive Summary Interpretive Summary: The patient is a 44-year-old female who is seen with his for the initial interview. He has a history of depression, alcohol and benzodiazepine dependence and possible ADD. Patient has been for 16 years and is seen with his . They live together with their 5 children who range in age from 4 years old up to 13 years old. 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 Patient has a history of alcoholism and benzo though diazepam dependence and did residential treatment for addiction in July 2019. He is currently seeing a substance abuse counselor at [facility] on a regular basis. His symptoms have been worsening in the past few weeks although he has been sober for 4 months now from benzodiazepines and alcohol. His symptoms include intrusive thoughts that I am a burden and people would be better off without me. He endorses feeling hopeless, worthless and sometimes irritable. He is depressed and sad at times and this usually follows a period of increased anxiety and worry over something in his life. 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 His appetite is been decreased but his weight is stable. His sleep has always been decreased however it did improve on 15 mg of Remeron for 3 months but then this affect wore off and it has been decreased for the last month or so. He has low energy during the day and describes severe decreases in concentration, attention and memory which have improved somewhat since starting Strattera 1 month ago. He endorses feeling guilty and admits to fleeting passive suicidal ideation. He denies any plan for suicide or any active suicidal ideation. He does admit to passive thoughts that he wound care if he . He denies homicidal ideation, hallucinations or delusions. He does describe a mild paranoia which consists of him feeling that people do not like him or they will not approve of something he does rather than out right delusional paranoia. He has no access to weapons or guns. He denies any history of self-harm, OCD, panic attacks, eating disorder, trauma or PTSD.
--- NOTE | 2020-03-08 10:43 | BH.MTP ---
Master Treatment Plan - Patient Information Program Physician:: Dr. Ledy Saravia Primary Therapist:: Bianka Ho - Psychiatric Diagnoses Psychiatric Diagnoses:: Major depressive disorder, recurrent, severe without psychosis; generalized anxiety disorder; alcohol use disorder in remission and on the Vivitrol; benzodiazepine use disorder in remission x 4 mos Diagnosis Code(s):: F 33.2 - Estimated LOS Estimated LOS (in weeks):: 12 Problem/Goal #1 - Problem/Goal #1 Stated Goal:: Client will maintain or see a reduction in symptoms AEB client score on the DSM 5 cross-cutting measure and improve client's daily functioning. - Objectives Objective #1 Stated Objective: Client will continue to consistently apply healthy coping skills to maintain progress made in IOP tx. Interventions: Through group therapy, client will review warning signs and triggers as well as healthy coping skills learned in IOP tx to successfully maintain gains while transitioning into outpatient therapy. Discharge Criteria: Client will have accomplished this goal when client's score on the DSM-5 cross-cutting measure has either maintained or reduced over a 12 week period. Target Date: 05/12/20 Review Date: 03/17/20 Objective #2 Stated Objective: Client will learn and utilize 2-3 maintenance strategies to prevent decompensation. Interventions: Through group therapy, client will be provided with education on healthy maintenance behaviors, relapse prevention techniques, and healthy coping strategies. Discharge Criteria: Client will have accomplished this goal when can report using at least 2 maintenance skills to prevent decompensation. Target Date: 05/12/20 Review Date: 03/17/20
== END 2020-03-07 23:59 ==
LOC: BHOG 13:50
PROVIDERS: PCP Family Medicine; Referring Provider Psychiatry & Neurology Psychiatry; Visit Provider Psychiatry & Neurology Psychiatry
DX: F33.2 Major depressive disorder, recurrent severe without psychotic features (principal); F41.1 Generalized anxiety disorder; Z72.89 Other problems related to lifestyle
CPT/HCPCS: 90853

== ENCOUNTER 2020-03-10 14:00 | Outpatient (RCR) | payer OTHER, SELFPAY ==
--- NOTE | 2020-03-10 14:00 | BH.SGPN.GN ---
Behaviors/Verbalizations/Mental Status: []Client alert and oriented, neatly dressed and groomed. Eye contact good. Motor activity appropriate. Speech within normal limits. Affect constricted, mood euthymic. Thoughts linear, logical, no signs of hallucinations or delusions. Client Response/Progress/Benefit: []Client responded well to session, checking in using GAPS. Client?s emotion today is ?confident? as client has established a good routine at home and got closer with his daughter. Client reports mental health wins such as increased self-acceptance and feeling less anxious. Client states using self-talk and acceptance to cope with daily stressors. Client shared he struggles still with the house getting ?messy right after I clean it? but client continues to work on sitting with the uncomfortable. Receptive of discussion on self-talk and its influence in maintaining long-term mental health stability. Contributed to strategies for improving effective creation and application of believable personal affirmations. Client?s affirmational statements were ?I can find a way to cope.? ?I can only control myself,? and ?I can make the best out of a bad situation.? Progress noted in client?s report communicating with daughter and practicing self-love. Client to continue aftercare group to promote gains and further increase application of healthy coping skills. Narrative Note: []
--- NOTE | 2020-03-24 14:00 | BH.SGPN.GN ---
Behaviors/Verbalizations/Mental Status: []Client alert and oriented, neatly dressed and groomed. Eye contact good. Motor activity appropriate. Speech within normal limits. Affect congruent, mood euthymic and anxious. Thoughts linear, logical, no signs of hallucinations or delusions. Client Response/Progress/Benefit: []Client responded well to session, checked in using his GAPs. Client shared his goal from last session was to do something fun. Client stated his got COVID, so the family had to quarantine. Client reported ?it actually ended up being relaxing and nice.? Client shared it was nice to have a break from the constant [place] of family activities. Client reports feeling anxious about returning to the family?s normal routine, but client recognizes they can always ease back into things. Client engaged well during the discussion of the components of self-compassion. Client connected with the benefits of self-compassion and agreed with peers that it is easier to be compassionate with others. Client participated in the activity of reframing a recent setback using self-compassion. Client used the example of not having as many family dinners. Client reframed this situation using self-compassion and stated, ?it has been a busy time right now and we can always get back to it.? Client appeared to benefit from practicing self-compassion and connecting with peers. Will continue aftercare to promote mood stability and reinforce healthy coping skills. Narrative Note: []
--- NOTE | 2020-04-07 08:36 | BH.DS ---
Discharge Summary - Demographics Date of Admission:: 02/18/20 Discharge Date: 04/07/20 Presenting Problems at Admission:: Client discharged from [facility] tx and transitioned to [facility] aftercare to maintain gains client made in [facility] and to reinforce healthy coping skills. At admission to [facility] aftercare, client reported ongoing symptoms of anxiety, fair family boundaries, and low motivation. Client was also experiencing life stressors including interpersonal relationship issues, family stress, and balancing work life stressors. Discharge Diagnoses:: Major depressive disorder, recurrent, severe without psychosis; generalized anxiety disorder; alcohol use disorder in remission and on the Vivitrol; benzodiazepine use disorder in remission x 4 mos Reason for Discharge:: Client elected to no longer attend aftercare group due to his work schedule. - Treatment Progress During Treatment & Response: Progress noted as client worked on his goals of increasing communication within his family, balancing his work life duties, lowering expecations, and using healthy coping skills when stressed. Issues Still to be Addressed:: communication, high expectations, difficulty relaxing and not being productive Discharge Recommendations/Instructions:: Client encouraged to continue with regular individual outpatient mental health treatment. Client reports his current provider at [facility] is not a good fit and would like to pursue additional options. He was provided with multiple outpatient counseling agencies in the area and reports plans to follow-up with Felicity Hart at [email or web address]. Discharge Handout: Complete Discharge Handout with client on aftercare options and continuity of care.
== END 2020-04-07 23:59 ==
LOC: BHOG 14:00
PROVIDERS: PCP Family Medicine; Referring Provider Psychiatry & Neurology Psychiatry; Visit Provider Psychiatry & Neurology Psychiatry
DX: F33.2 Major depressive disorder, recurrent severe without psychotic features (principal); F41.1 Generalized anxiety disorder; Z72.89 Other problems related to lifestyle
CPT/HCPCS: 90853

== ENCOUNTER → 2020-03-22 15:15 | Outpatient (CLI) | payer OTHER, SELFPAY ==
[2020-03-22 17:51] LABS: Hematocrit 47.5 % (40-54); Hemoglobin 15.1 g/dL (13.0-16.5); Mean Corp Hgb Conc 31.8 g/dL (32-36); Mean Corpuscular Volume 81.8 fL (80-94); Mean Platelet Vol. 9.7 fl (6.2-12.0); Platelet Count 247 K/mm3 (150-450); RBC Distribution Width CV 14.5 % (11.6-14.6); RBC Distribution Width SD 43.8 fl (35.1-43.9); Red Blood Count 5.81 M/mm3 (4.6-6.2); White Blood Count 8.2 K/mm3 (4.4-11.0)
[2020-03-22 18:03] LABS: Progesterone Level 0.42 ng/mL (See Comment); T3 Total - Triiodothyronine 0.85 ng/mL (0.6-1.81); Vitamin B12 781 pg/mL (211-911); Vitamin D,25 Hydroxy 60.4 ng/mL
[2020-03-22 18:07] LABS: Hemoglobin A1c 5.6 % (3.8-5.6)
[2020-03-22 19:20] LABS: ALB/GLOB Ratio 1.2 RATIO (0.9-2.4); AST(SGOT) 27 U/L (15-37); Alanine Aminotransfer ALT/SGPT 50 U/L (16-61); Alkaline Phosphatase 61 U/L (45-117); Anion Gap 7 (5-15); BUN 16 mg/dL (7-18); BUN/Creat Ratio 14.4 RATIO (10-20); CRP < 2.90 mg/L (0.0-3.0); Calcium,Total 8.8 mg/dL (8.5-10.1); Chloride 106 mmol/L (98-107); Cholesterol 203 mg/dL (200); Creatinine, Serum 1.11 mg/dL (0.70-1.30); EST Glomerular Filtration Rate 77 mL/min (>60); Est Glom Filt Rate - Afr Amer 93 mL/min (>60); Estradiol 31.6 pg/mL; Follicle Stimulating Hormone < 0.2 mIU/mL; Globulin 3.4 g/dL (2.2-4.2); Glucose 89 mg/dL (74-106); High Density Lipoprotein 50 mg/dL; Iron 80 ug/dL (65-175); Luteinizing Hormone < 0.2 mIU/mL; Magnesium 2.1 mg/dL (1.6-2.6); Potassium 3.9 mmol/L (3.5-5.1); Prolactin 23.1 ng/mL; Protein, Total 7.4 g/dL (6.4-8.2); Sodium Level 137 mmol/L (136-145); T4 Free Direct 0.92 ng/dL (0.76-1.46); T4 Total, Thyroxin 6.9 ug/dL (4.5-12.1); Triglycerides 83 mg/dL; Very Low Density Lipoprotein 17 mg/dL (5-40)
[2020-03-23 08:04] LABS: CRP, High Sensitivity Cardiac 2.09 mg/L
[2020-03-26 20:07] LABS: DHEA Sulfate 64.8 ug/dL (102.6-416.3); Insulin Like Growth Factor 258 ng/mL (84-270); Testosterone, Free 21.46 ng/dL (5.00-21.00)
[2020-03-27 04:38] LABS: Sex Hormone-binding Globulin 19.4 nmol/L (16.5-55.9); Testosterone, Total 613 ng/dL (264-916)
== END ==
PROVIDERS: PCP Family Medicine; Referring Provider Nurse Practitioner Family; Visit Provider Nurse Practitioner Family
DX: R53.82 Chronic fatigue, unspecified (principal); M62.81 Muscle weakness (generalized); E66.9 Obesity, unspecified; E29.1 Testicular hypofunction
CPT/HCPCS: 36415; 80053; 80061; 82306; 82533; 82607; 82627; 82670; 82746; 83001; 83002; 83036; 83090; 83540; 83735; 84144; 84146; 84270; 84305; 84402; 84403; 84436; 84439; 84443; 84480; 85027; 86140; 86141; 82626

== ENCOUNTER → 2020-05-11 09:09 | Outpatient (CLI) | payer OTHER, SELFPAY ==
[2020-05-11 10:29] LABS: Hematocrit 51.4 % (40-54); Hemoglobin 16.8 g/dL (13.0-16.5); Mean Corp Hgb Conc 32.7 g/dL (32-36); Mean Corpuscular Hgb 27.4 pg (27.0-32.0); Mean Corpuscular Volume 83.7 fL (80-94); Mean Platelet Vol. 10.4 fl (6.2-12.0); Platelet Count 338 K/mm3 (150-450); RBC Distribution Width CV 13.7 % (11.6-14.6); RBC Distribution Width SD 41.3 fl (35.1-43.9); Red Blood Count 6.14 M/mm3 (4.6-6.2); White Blood Count 8.1 K/mm3 (4.4-11.0)
[2020-05-11 10:49] LABS: Hemoglobin A1c 5.4 % (3.8-5.6)
[2020-05-11 11:15] LABS: Progesterone Level 0.46 ng/mL (See Comment); T3 Total - Triiodothyronine 0.93 ng/mL (0.6-1.81); Vitamin B12 681 pg/mL (211-911); Vitamin D,25 Hydroxy 61.8 ng/mL
[2020-05-11 11:50] LABS: ALB/GLOB Ratio 1.2 RATIO (0.9-2.4); AST(SGOT) 17 U/L (15-37); Alanine Aminotransfer ALT/SGPT 35 U/L (16-61); Albumin, Serum 4.1 g/dL (3.2-5.0); Alkaline Phosphatase 69 U/L (45-117); Anion Gap 5 (5-15); BUN 17 mg/dL (7-18); BUN/Creat Ratio 13.8 RATIO (10-20); CRP, High Sensitivity Cardiac 2.35 mg/L; Calcium,Total 9.4 mg/dL (8.5-10.1); Chloride 106 mmol/L (98-107); Cholesterol 230 mg/dL (200); Creatinine, Serum 1.23 mg/dL (0.70-1.30); EST Glomerular Filtration Rate 68 mL/min (>60); Est Glom Filt Rate - Afr Amer 83 mL/min (>60); Estradiol 59.1 pg/mL; Follicle Stimulating Hormone < 0.2 mIU/mL; Globulin 3.5 g/dL (2.2-4.2); Glucose 110 mg/dL (74-106); High Density Lipoprotein 45 mg/dL; Iron 45 ug/dL (65-175); Luteinizing Hormone < 0.2 mIU/mL; Magnesium 1.9 mg/dL (1.6-2.6); Potassium 4.2 mmol/L (3.5-5.1); Prolactin 9.7 ng/mL; Protein, Total 7.6 g/dL (6.4-8.2); Sodium Level 137 mmol/L (136-145); T4 Total, Thyroxin 6.4 ug/dL (4.5-12.1); Thyroid Stim Hormone (TSH) 0.67 uIU/mL (0.358-3.74); Triglycerides 82 mg/dL; Very Low Density Lipoprotein 16 mg/dL (5-40)
[2020-05-14 12:07] LABS: Insulin Like Growth Factor 255 ng/mL (84-270); Testosterone, % Free 4.93 % (1.50-4.20); Testosterone, Free 47.62 ng/dL (5.00-21.00)
[2020-05-14 13:52] LABS: Testosterone, Total 966 ng/dL (264-916)
== END ==
PROVIDERS: PCP Family Medicine; Referring Provider Nurse Practitioner Family; Visit Provider Nurse Practitioner Family
DX: R53.82 Chronic fatigue, unspecified (principal); M62.81 Muscle weakness (generalized); R68.82 Decreased libido
CPT/HCPCS: 36415; 80053; 80061; 82306; 82533; 82607; 82627; 82670; 82746; 83001; 83002; 83036; 83090; 83540; 83735; 84144; 84146; 84270; 84305; 84402; 84403; 84436; 84439; 84443; 84480; 85027; 86141; 82626

== ENCOUNTER → 2020-06-29 09:50 | Outpatient (CLI) | payer OTHER, SELFPAY ==
[2020-06-29 12:28] LABS: Hematocrit 52.3 % (40-54); Hemoglobin 17.1 g/dL (13.0-16.5); Mean Corp Hgb Conc 32.7 g/dL (32-36); Mean Corpuscular Hgb 27.4 pg (27.0-32.0); Mean Corpuscular Volume 83.8 fL (80-94); Mean Platelet Vol. 10.4 fl (6.2-12.0); Platelet Count 315 K/mm3 (150-450); RBC Distribution Width CV 14.1 % (11.6-14.6); RBC Distribution Width SD 42.5 fl (35.1-43.9); Red Blood Count 6.24 M/mm3 (4.6-6.2); White Blood Count 8.9 K/mm3 (4.4-11.0)
[2020-06-29 12:36] LABS: Progesterone Level 0.31 ng/mL (See Comment); T3 Total - Triiodothyronine 0.94 ng/mL (0.6-1.81); Vitamin B12 591 pg/mL (211-911); Vitamin D,25 Hydroxy 70.8 ng/mL
[2020-06-29 12:37] LABS: Hemoglobin A1c 5.5 % (3.8-5.6)
[2020-06-29 12:46] LABS: Homocysteine 6.6 umol/L (3.2-10.7)
[2020-06-29 13:42] LABS: ALB/GLOB Ratio 1.2 RATIO (0.9-2.4); AST(SGOT) 22 U/L (15-37); Alanine Aminotransfer ALT/SGPT 38 U/L (16-61); Alkaline Phosphatase 69 U/L (45-117); Anion Gap 4 (5-15); BUN 12 mg/dL (7-18); BUN/Creat Ratio 10.4 RATIO (10-20); CRP, High Sensitivity Cardiac 1.21 mg/L; Calcium,Total 8.8 mg/dL (8.5-10.1); Chloride 106 mmol/L (98-107); Cholesterol 236 mg/dL (200); Creatinine, Serum 1.15 mg/dL (0.70-1.30); EST Glomerular Filtration Rate 74 mL/min (>60); Est Glom Filt Rate - Afr Amer 89 mL/min (>60); Follicle Stimulating Hormone < 0.2 mIU/mL; Globulin 3.4 g/dL (2.2-4.2); Glucose 116 mg/dL (74-106); High Density Lipoprotein 47 mg/dL; Iron 75 ug/dL (65-175); Luteinizing Hormone < 0.2 mIU/mL; Magnesium 1.9 mg/dL (1.6-2.6); PSA,Total - Annual Screen 0.29 ng/mL (0.00-4.00); Potassium 4.3 mmol/L (3.5-5.1); Prolactin 9.2 ng/mL; Protein, Total 7.4 g/dL (6.4-8.2); Sodium Level 138 mmol/L (136-145); T4 Total, Thyroxin 5.8 ug/dL (4.5-12.1); Thyroid Stim Hormone (TSH) 0.86 uIU/mL (0.358-3.74); Triglycerides 133 mg/dL; Very Low Density Lipoprotein 27 mg/dL (5-40)
[2020-07-02 20:07] LABS: DHEA Sulfate 91.4 ug/dL (102.6-416.3); Insulin Like Growth Factor 275 ng/mL (84-270); Testosterone, % Free 2.56 % (1.50-4.20); Testosterone, Free 19.74 ng/dL (5.00-21.00)
[2020-07-03 12:57] LABS: Sex Hormone-binding Globulin 19.8 nmol/L (16.5-55.9); Testosterone, Total 771 ng/dL (264-916)
== END ==
PROVIDERS: PCP Family Medicine; Referring Provider Nurse Practitioner Family; Visit Provider Nurse Practitioner Family
DX: R53.82 Chronic fatigue, unspecified (principal); M62.81 Muscle weakness (generalized); E29.1 Testicular hypofunction
CPT/HCPCS: 36415; 80053; 80061; 82306; 82533; 82607; 82627; 82670; 82746; 83001; 83002; 83036; 83090; 83540; 83735; 84144; 84146; 84153; 84270; 84305; 84402; 84403; 84436; 84439; 84443; 84480; 85027; 86141; 82626; G0103

== ENCOUNTER → 2020-07-11 | Outpatient (CLI) | payer OTHER, SELFPAY | END | disposition home or self-care (01) | PROVIDERS: PCP Family Medicine; Visit Provider Family Medicine | DX: U07.1 COVID-19 (principal) | CPT/HCPCS: 87635; U0002 ==

== ENCOUNTER → 2020-11-25 12:32 | Outpatient (CLI) | payer OTHER, SELFPAY ==
[2020-11-25 13:39] LABS: Hematocrit 49.8 % (40-54); Hemoglobin 16.7 g/dL (13.0-16.5); Mean Corp Hgb Conc 33.5 g/dL (32-36); Mean Corpuscular Hgb 28.4 pg (27.0-32.0); Mean Corpuscular Volume 84.8 fL (80-94); Mean Platelet Vol. 10.4 fl (6.2-12.0); Platelet Count 280 K/mm3 (150-450); RBC Distribution Width CV 13.3 % (11.6-14.6); RBC Distribution Width SD 41.3 fl (35.1-43.9); Red Blood Count 5.87 M/mm3 (4.6-6.2); White Blood Count 6.4 K/mm3 (4.4-11.0)
[2020-11-25 13:40] LABS: Homocysteine 8.1 umol/L (3.2-10.7)
[2020-11-25 13:57] LABS: Hemoglobin A1c 5.5 % (3.8-5.6)
[2020-11-25 14:13] LABS: Progesterone Level 0.36 ng/mL (See Comment); T3 Total - Triiodothyronine 1.25 ng/mL (0.6-1.81); Vitamin B12 608 pg/mL (211-911); Vitamin D,25 Hydroxy 51.1 ng/mL
[2020-11-25 14:18] LABS: ALB/GLOB Ratio 1.2 RATIO (0.9-2.4); AST(SGOT) 19 U/L (15-37); Alanine Aminotransfer ALT/SGPT 28 U/L (16-61); Alkaline Phosphatase 64 U/L (45-117); Anion Gap 6 (5-15); BUN 15 mg/dL (7-18); BUN/Creat Ratio 12.7 RATIO (10-20); CRP, High Sensitivity Cardiac 1.94 mg/L; Calcium,Total 8.6 mg/dL (8.5-10.1); Chloride 106 mmol/L (98-107); Cholesterol 261 mg/dL (200); Creatinine, Serum 1.18 mg/dL (0.70-1.30); EST Glomerular Filtration Rate 72 mL/min (>60); Est Glom Filt Rate - Afr Amer 87 mL/min (>60); Globulin 3.4 g/dL (2.2-4.2); Glucose 118 mg/dL (74-106); High Density Lipoprotein 46 mg/dL; Iron 97 ug/dL (65-175); Magnesium 2.1 mg/dL (1.6-2.6); Protein, Total 7.4 g/dL (6.4-8.2); Sodium Level 138 mmol/L (136-145); T4 Free Direct 0.96 ng/dL (0.76-1.46); T4 Total, Thyroxin 8.3 ug/dL (4.5-12.1); Thyroid Stim Hormone (TSH) 1.16 uIU/mL (0.358-3.74); Triglycerides 118 mg/dL; Very Low Density Lipoprotein 24 mg/dL (5-40)
[2020-11-25 14:19] LABS: Estradiol 26.1 pg/mL; Follicle Stimulating Hormone < 0.2 mIU/mL; Luteinizing Hormone < 0.2 mIU/mL; Prolactin 8.3 ng/mL
[2020-12-04 12:07] LABS: Insulin Like Growth Factor 211 ng/mL (84-270); Testosterone, Free 17.48 ng/dL (5.00-21.00)
[2020-12-04 12:19] LABS: Sex Hormone-binding Globulin 24.5 nmol/L (16.5-55.9); Testosterone, Total 460 ng/dL (264-916)
== END ==
PROVIDERS: PCP Family Medicine; Referring Provider Nurse Practitioner Family; Visit Provider Nurse Practitioner Family
DX: R53.82 Chronic fatigue, unspecified (principal); M62.81 Muscle weakness (generalized); E66.9 Obesity, unspecified; E29.1 Testicular hypofunction
CPT/HCPCS: 36415; 80053; 80061; 82306; 82533; 82607; 82627; 82670; 82746; 83001; 83002; 83036; 83090; 83540; 83735; 84144; 84146; 84270; 84305; 84402; 84403; 84436; 84439; 84443; 84480; 85027; 86141; 82626

== ENCOUNTER 2021-04-24 14:09 | Outpatient (CLI) | payer OTHER, SELFPAY ==
[2021-04-24 17:52] LABS: Hematocrit 48.1 % (40-54); Mean Corp Hgb Conc 33.3 g/dL (32-36); Mean Corpuscular Hgb 28.5 pg (27.0-32.0); Mean Corpuscular Volume 85.7 fL (80-94); Mean Platelet Vol. 10.2 fl (6.2-12.0); Platelet Count 286 K/mm3 (150-450); Red Blood Count 5.61 M/mm3 (4.6-6.2); White Blood Count 9.9 K/mm3 (4.4-11.0)
[2021-04-24 18:04] LABS: Progesterone Level 0.36 ng/mL (See Comment); T3 Total - Triiodothyronine 1.08 ng/mL (0.6-1.81); Vitamin B12 303 pg/mL (211-911); Vitamin D,25 Hydroxy 31.7 ng/mL
[2021-04-24 18:07] LABS: Hemoglobin A1c 5.3 % (3.8-5.6)
[2021-04-24 19:33] LABS: ALB/GLOB Ratio 1.1 RATIO (0.9-2.4); AST(SGOT) 20 U/L (15-37); Alanine Aminotransfer ALT/SGPT 32 U/L (16-61); Albumin, Serum 3.8 g/dL (3.2-5.0); Alkaline Phosphatase 54 U/L (45-117); Anion Gap 6 (5-15); BUN 18 mg/dL (7-18); BUN/Creat Ratio 15.9 RATIO (10-20); CRP, High Sensitivity Cardiac 3.73 mg/L; Calcium,Total 8.5 mg/dL (8.5-10.1); Chloride 106 mmol/L (98-107); Cholesterol 252 mg/dL (200); Creatinine, Serum 1.13 mg/dL (0.70-1.30); EST Glomerular Filtration Rate 75 mL/min (>60); Est Glom Filt Rate - Afr Amer 91 mL/min (>60); Estradiol 42.3 pg/mL; Follicle Stimulating Hormone < 0.2 mIU/mL; Globulin 3.4 g/dL (2.2-4.2); Glucose 98 mg/dL (74-106); High Density Lipoprotein 51 mg/dL; Iron 79 ug/dL (65-175); Luteinizing Hormone < 0.2 mIU/mL; Magnesium 1.9 mg/dL (1.6-2.6); PSA,Total - Annual Screen 0.93 ng/mL (0.00-4.00); Potassium 3.6 mmol/L (3.5-5.1); Prolactin 5.1 ng/mL; Protein, Total 7.2 g/dL (6.4-8.2); Sodium Level 139 mmol/L (136-145); T4 Free Direct 0.99 ng/dL (0.76-1.46); T4 Total, Thyroxin 6.5 ug/dL (4.5-12.1); Thyroid Stim Hormone (TSH) 1.02 uIU/mL (0.358-3.74); Triglycerides 66 mg/dL; Very Low Density Lipoprotein 13 mg/dL (5-40)
[2021-04-28 09:08] LABS: DHEA Sulfate 35.3 ug/dL (102.6-416.3); Insulin Like Growth Factor 227 ng/mL (84-270); Testosterone, % Free 4.27 % (1.50-4.20); Testosterone, Free 45.99 ng/dL (5.00-21.00)
[2021-04-28 09:47] LABS: Sex Hormone-binding Globulin 29.1 nmol/L (16.5-55.9); Testosterone, Total 1077 ng/dL (264-916)
== END 2021-04-24 23:59 | disposition short-term general hospital (02) ==
PROVIDERS: PCP Family Medicine; Referring Provider Nurse Practitioner Family; Visit Provider Nurse Practitioner Family
DX: R53.82 Chronic fatigue, unspecified (principal); M62.81 Muscle weakness (generalized); E29.1 Testicular hypofunction
CPT/HCPCS: 36415; 80053; 80061; 82306; 82533; 82607; 82627; 82670; 82746; 83001; 83002; 83036; 83090; 83540; 83735; 84144; 84146; 84153; 84270; 84305; 84402; 84403; 84436; 84439; 84443; 84480; 85027; 86141; 82626; G0103

== ENCOUNTER → 2021-10-17 | Outpatient (CLI) | payer OTHER, SELFPAY ==
[2021-10-17 10:27] LABS: Hematocrit 49.9 % (40-54); Hemoglobin 16.5 g/dL (13.0-16.5); Mean Corp Hgb Conc 33.1 g/dL (32-36); Mean Corpuscular Hgb 28.3 pg (27.0-32.0); Mean Corpuscular Volume 85.6 fL (80-94); Mean Platelet Vol. 11.3 fl (6.2-12.0); Platelet Count 267 K/mm3 (150-450); RBC Distribution Width CV 14.1 % (11.6-14.6); RBC Distribution Width SD 43.4 fl (35.1-43.9); Red Blood Count 5.83 M/mm3 (4.6-6.2); White Blood Count 7.6 K/mm3 (4.4-11.0)
[2021-10-17 10:51] LABS: Progesterone Level 0.35 ng/mL (See Comment); T3 Total - Triiodothyronine 1.11 ng/mL (0.6-1.81); Vitamin B12 467 pg/mL (211-911); Vitamin D,25 Hydroxy 43.3 ng/mL
[2021-10-17 10:58] LABS: Hemoglobin A1c 5.4 % (3.8-5.6)
[2021-10-17 21:20] LABS: ALB/GLOB Ratio 1.2 RATIO (0.9-2.4); AST(SGOT) 20 U/L (15-37); Alanine Aminotransfer ALT/SGPT 25 U/L (16-61); Albumin, Serum 3.9 g/dL (3.2-5.0); Alkaline Phosphatase 56 U/L (45-117); Anion Gap 4 (5-15); BUN 21 mg/dL (7-18); Calcium,Total 8.7 mg/dL (8.5-10.1); Chloride 104 mmol/L (98-107); Cholesterol 228 mg/dL (200); EST Glomerular Filtration Rate 54 mL/min (>60); Est Glom Filt Rate - Afr Amer 65 mL/min (>60); Estradiol 47.6 pg/mL; Follicle Stimulating Hormone < 0.2 mIU/mL; Globulin 3.2 g/dL (2.2-4.2); Glucose 109 mg/dL (74-106); High Density Lipoprotein 38 mg/dL; Iron 81 ug/dL (65-175); Luteinizing Hormone < 0.2 mIU/mL; Magnesium 2.1 mg/dL (1.6-2.6); PSA,Total- Diagnostic 0.28 ng/mL (0.0-4.0); Protein, Total 7.1 g/dL (6.4-8.2); Sodium Level 137 mmol/L (136-145); T4 Free Direct 0.89 ng/dL (0.76-1.46); T4 Total, Thyroxin 6.9 ug/dL (4.5-12.1); Thyroid Stim Hormone (TSH) 1.67 uIU/mL (0.358-3.74); Triglycerides 200 mg/dL; Very Low Density Lipoprotein 40 mg/dL (5-40)
[2021-10-20 18:07] LABS: DHEA Sulfate 78.4 ug/dL (102.6-416.3); Insulin Like Growth Factor 185 ng/mL (84-270); Testosterone, % Free 3.66 % (1.50-4.20); Testosterone, Free 33.01 ng/dL (5.00-21.00)
[2021-10-20 20:22] LABS: Sex Hormone-binding Globulin 26.2 nmol/L (16.5-55.9); Testosterone, Total 902 ng/dL (264-916)
== END | disposition home or self-care (01) ==
PROVIDERS: PCP Family Medicine; Referring Provider Nurse Practitioner Family; Visit Provider Nurse Practitioner Family
DX: R53.82 Chronic fatigue, unspecified (principal); M62.81 Muscle weakness (generalized); R68.82 Decreased libido; E66.9 Obesity, unspecified; E29.1 Testicular hypofunction
CPT/HCPCS: 36415; 80053; 80061; 82306; 82533; 82607; 82627; 82670; 82746; 83001; 83002; 83036; 83090; 83540; 83735; 84144; 84146; 84153; 84270; 84305; 84402; 84403; 84436; 84439; 84443; 84480; 85027; 86141; 82626

== ENCOUNTER → 2022-03-20 | Outpatient (CLI) | payer OTHER, SELFPAY ==
[2022-03-20 18:01] LABS: Hematocrit 47.5 % (40-54); Hemoglobin 15.7 g/dL (13.0-16.5); Mean Corp Hgb Conc 33.1 g/dL (32-36); Mean Corpuscular Hgb 28.6 pg (27.0-32.0); Mean Corpuscular Volume 86.5 fL (80-94); Platelet Count 308 K/mm3 (150-450); RBC Distribution Width CV 12.7 % (11.6-14.6); RBC Distribution Width SD 40.4 fl (35.1-43.9); Red Blood Count 5.49 M/mm3 (4.6-6.2); White Blood Count 10.5 K/mm3 (4.4-11.0)
[2022-03-20 18:20] LABS: Hemoglobin A1c 5.7 % (3.8-5.6)
[2022-03-20 18:21] LABS: Progesterone Level 0.21 ng/mL (See Comment); T3 Total - Triiodothyronine 1.19 ng/mL (0.6-1.81); Vitamin B12 512 pg/mL (211-911); Vitamin D,25 Hydroxy 27.5 ng/mL
[2022-03-20 18:30] LABS: Homocysteine 8.5 umol/L (3.2-10.7)
[2022-03-20 20:20] LABS: ALB/GLOB Ratio 1.2 RATIO (0.9-2.4); AST(SGOT) 12 U/L (15-37); Alanine Aminotransfer ALT/SGPT 29 U/L (16-61); Albumin, Serum 3.8 g/dL (3.2-5.0); Alkaline Phosphatase 74 U/L (45-117); Anion Gap 6 (5-15); BUN 12 mg/dL (7-18); BUN/Creat Ratio 11.7 RATIO (10-20); Calcium,Total 8.9 mg/dL (8.5-10.1); Chloride 100 mmol/L (98-107); Cholesterol 235 mg/dL (200); Creatinine, Serum 1.03 mg/dL (0.70-1.30); EST Glomerular Filtration Rate 83 mL/min (>60); Est Glom Filt Rate - Afr Amer 101 mL/min (>60); Estradiol 48.3 pg/mL; Follicle Stimulating Hormone < 0.2 mIU/mL; Globulin 3.1 g/dL (2.2-4.2); Glucose 104 mg/dL (74-106); High Density Lipoprotein 45 mg/dL; Iron 97 ug/dL (65-175); Luteinizing Hormone < 0.2 mIU/mL; Magnesium 1.8 mg/dL (1.6-2.6); PSA,Total- Diagnostic 0.22 ng/mL (0.0-4.0); Potassium 4.3 mmol/L (3.5-5.1); Prolactin 6.2 ng/mL; Protein, Total 6.9 g/dL (6.4-8.2); Sodium Level 135 mmol/L (136-145); T4 Free Direct 0.93 ng/dL (0.76-1.46); Thyroid Stim Hormone (TSH) 0.73 uIU/mL (0.358-3.74); Triglycerides 136 mg/dL; Very Low Density Lipoprotein 27 mg/dL (5-40)
[2022-03-28 11:08] LABS: DHEA Sulfate 57.8 ug/dL (102.6-416.3); Insulin Like Growth Factor 163 ng/mL (84-270); Testosterone, % Free 3.43 % (1.50-4.20); Testosterone, Free 23.46 ng/dL (5.00-21.00)
[2022-03-28 14:01] LABS: Sex Hormone-binding Globulin 27.7 nmol/L (16.5-55.9); Testosterone, Total 684 ng/dL (264-916)
== END | disposition home or self-care (01) ==
PROVIDERS: PCP Family Medicine; Referring Provider Nurse Practitioner Family; Visit Provider Nurse Practitioner Family
DX: R53.82 Chronic fatigue, unspecified (principal); M62.81 Muscle weakness (generalized); R68.82 Decreased libido; E29.1 Testicular hypofunction
CPT/HCPCS: 36415; 80053; 80061; 82306; 82533; 82607; 82627; 82670; 82746; 83001; 83002; 83036; 83090; 83540; 83735; 84144; 84146; 84153; 84270; 84305; 84402; 84403; 84436; 84439; 84443; 84480; 85027; 86141; 82626

== ENCOUNTER → 2023-01-03 | Outpatient (CLI) | payer OTHER, SELFPAY ==
--- NOTE | 2023-01-03 08:04 | VDLE_ITS ---
Reason For Study: RLE PAIN RIGHT LEFT CFV is compressible, spontaneous, phasic, GSV is normal. competent and demonstrates normal CFV is compressible, spontaneous, phasic, augmentation. competent, and demonstrates normal Procedure augmentation. This is a venous duplex using B-mode, color FV is compressible, spontaneous, phasic, flow and spectral Doppler. competent and demonstrates normal Exam performed in department. augmentation. The exam was diagnostic. POP V is compressible, spontaneous, phasic, A preliminary report was called and/or faxed competent and demonstrates normal to Dionne Santoyo PA @ [phone] @ 08:25 am. augmentation. T/P Trunk is compressible. PTV is compressible. LT PerV is compressible. VL/Venous Duplex US, Unilateral Interpretation Summary Deep veins of the left lower extremity are patent and compressible segmentally. There is no evidence of left lower extremity deep vein thrombosis. The left great saphenous vein octaviano ears patent and compressible segmentally. Ordering Physician: Dionne Santoyo Referring Physician: Rojelio Holley Performed By: Deirdre Galo, BERKLEY, RVT
== END | disposition home or self-care (01) ==
LOC: CVS 08:01
PROVIDERS: PCP Family Medicine
DX: M79.662 Pain in left lower leg (principal)
CPT/HCPCS: 93971

== ENCOUNTER → 2023-02-15 | Outpatient (CLI) | payer OTHER, SELFPAY ==
--- NOTE | 2023-02-15 07:02 | MRI_ITS ---
STUDY: MRI RIGHT HIP REASON FOR EXAM: Male, 47 years old. Pain. Dull to sharp pain in right groin for 2 years. TECHNIQUE: Standardized fat and water weighted pulse sequences were obtained in all 3 orthogonal planes. COMPARISON: Pelvis radiographs dated 01/02/2023. FINDINGS: Normal hip joint without articular joint space narrowing. Normal acetabulum. Normal labrum. Normal femoral head. Normal femoral neck and intratrochanteric region. There is no demonstrated fracture. Normal gluteus minimus, medius and iliopsoas tendons and distal insertions. There is minimal right trochanteric bursitis (coronal STIR series 5 image 13). There is no iliopsoas or iliopectineal bursitis. There is a strain/partial tear of the right adductor tendon origin at the inferior margin of the right pubis (coronal STIR series 5 image 24; axial STIR series 2 images 30-31). Normal superior and inferior pubic rami. Normal pubic symphysis. Normal ischial tuberosity. Normal origin of the hamstring tendons. Normal visualized iliac wing, sacroiliac joint, and sacral ala. The contralateral hip is unremarkable. Normal visualized soft tissue structures of the pelvis. MRI/Lower Ext Joint Only (Routine) IMPRESSION: Sprain/partial tear of the right adductor tendon origin at the inferior margin of the right pubis. Minimal right trochanteric bursitis. No acute fracture or discrete labral tear. Electronically Signed: Amrit Marroquin MD at 12:03 EST ,
== END | disposition home or self-care (01) ==
PROVIDERS: PCP Family Medicine
DX: R29.898 Other symptoms and signs involving the musculoskeletal system (principal)
CPT/HCPCS: 73721

== ENCOUNTER → 2023-03-15 | Outpatient (CLI) | payer OTHER, SELFPAY ==
[2023-03-15 15:50] LABS: Absolute Lymphocyte Count 2.86 X10^3/uL (0.83-4.51); Absolute Neutrophil Count 4.4 X10^3/uL (2.0-7.7); Basophil# 0.06 X10^3/uL; Basophil% 0.7 % (0-1); Eosinophil# 0.22 X10^3/uL; Eosinophils% 2.7 % (0-5); Hematocrit 47.1 % (40-54); Hemoglobin 15.3 g/dL (13.0-16.5); Lymphocyte # 2.86 X10^3/ul (0.83-4.51); Lymphocyte % 34.9 % (19-41); Mean Corp Hgb Conc 32.5 g/dL (32-36); Mean Corpuscular Hgb 27.7 pg (27.0-32.0); Mean Corpuscular Volume 85.2 fL (80-94); Mean Platelet Vol. 10.5 fl (6.2-12.0); Monocyte# 0.67 X10^3/uL; Monocyte% 8.2 % (0-10); NRBC Flagged by Analyzer 0 % (0-5); Neutrophil # 4.35 X10^3/uL (2.7-7.7); Neutrophil % 53.1 % (47-70); Platelet Count 217 K/mm3 (150-450); RBC Distribution Width CV 13.2 % (11.6-14.6); RBC Distribution Width SD 41.1 fl (35.1-43.9); Red Blood Count 5.53 M/mm3 (4.6-6.2); White Blood Count 8.2 K/mm3 (4.4-11.0)
[2023-03-15 16:59] LABS: AST(SGOT) 20 U/L (15-37); Alanine Aminotransfer ALT/SGPT 33 U/L (16-61); Albumin, Serum 3.7 g/dL (3.2-5.0); Alkaline Phosphatase 56 U/L (45-117); Globulin 3.1 g/dL (2.2-4.2); PSA,Total - Annual Screen 0.29 ng/mL (0.00-4.00); Protein, Total 6.8 g/dL (6.4-8.2)
== END | disposition home or self-care (01) ==
LOC: BFHLAB 13:09
PROVIDERS: PCP Family Medicine; Visit Provider Family Medicine
DX: E29.1 Testicular hypofunction (principal); Z51.81 Encounter for therapeutic drug level monitoring
CPT/HCPCS: 36415; 80076; 84153; 84403; 85025; G0103

== ENCOUNTER → 2023-11-15 | Outpatient (CLI) | payer OTHER, SELFPAY | END | disposition home or self-care (01) | LOC: SL 20:03 | PROVIDERS: PCP Family Medicine; Referring Provider Family Medicine; Visit Provider Family Medicine | DX: G47.19 Other hypersomnia (principal) | CPT/HCPCS: 95810 ==

== ENCOUNTER → 2024-04-21 | Outpatient (CLI) | payer OTHER, SELFPAY ==
[2024-04-21 17:46] LABS: Absolute Lymphocyte Count 2.28 X10^3/uL (0.83-4.51); Absolute Neutrophil Count 5.1 X10^3/uL (2.0-7.7); Basophil# 0.06 X10^3/uL; Basophil% 0.7 % (0-1); Eosinophil# 0.14 X10^3/uL; Eosinophils% 1.7 % (0-5); Hematocrit 47.3 % (40-54); Hemoglobin 15.5 g/dL (13.0-16.5); Lymphocyte # 2.28 X10^3/ul (0.83-4.51); Lymphocyte % 27.8 % (19-41); Mean Corp Hgb Conc 32.8 g/dL (32-36); Mean Corpuscular Hgb 28.5 pg (27.0-32.0); Mean Corpuscular Volume 86.9 fL (80-94); Mean Platelet Vol. 11.3 fl (6.2-12.0); Monocyte# 0.59 X10^3/uL; Monocyte% 7.2 % (0-10); NRBC Flagged by Analyzer 0 % (0-5); Neutrophil # 5.09 X10^3/uL (2.7-7.7); Neutrophil % 62.1 % (47-70); Platelet Count 258 K/mm3 (150-450); RBC Distribution Width SD 41.2 fl (35.1-43.9); Red Blood Count 5.44 M/mm3 (4.6-6.2); White Blood Count 8.2 K/mm3 (4.4-11.0)
[2024-04-21 19:02] LABS: ALB/GLOB Ratio 1.3 RATIO (0.9-2.4); AST(SGOT) 13 U/L (15-37); Alanine Aminotransfer ALT/SGPT 22 U/L (16-61); Albumin, Serum 3.9 g/dL (3.2-5.0); Alkaline Phosphatase 59 U/L (45-117); Anion Gap 3 (5-15); BUN 11 mg/dL (7-18); BUN/Creat Ratio 8.6 RATIO (10-20); Calcium,Total 8.5 mg/dL (8.5-10.1); Chloride 105 mmol/L (98-107); Cholesterol 219 mg/dL (200); Creatinine, Serum 1.28 mg/dL (0.70-1.30); EST Glomerular Filtration Rate 64 mL/min (>60); Est Glom Filt Rate - Afr Amer 78 mL/min (>60); Glucose 93 mg/dL (74-106); High Density Lipoprotein 46 mg/dL; PSA,Total - Annual Screen 0.39 ng/mL (0.00-4.00); Potassium 4.1 mmol/L (3.5-5.1); Protein, Total 6.9 g/dL (6.4-8.2); Sodium Level 136 mmol/L (136-145); Triglycerides 78 mg/dL; Very Low Density Lipoprotein 16 mg/dL (5-40)
== END | disposition home or self-care (01) ==
LOC: BFHLAB 14:30
PROVIDERS: PCP Family Medicine; Visit Provider Family Medicine
DX: Z00.00 Encounter for general adult medical examination without abnormal findings (principal); E29.1 Testicular hypofunction; Z12.5 Encounter for screening for malignant neoplasm of prostate

== ENCOUNTER → 2025-01-29 | Outpatient (CLI) | payer OTHER, SELFPAY | END | disposition home or self-care (01) | PROVIDERS: PCP Family Medicine; Referring Provider Family Medicine; Visit Provider Family Medicine | DX: R60.0 Localized edema (principal) | CPT/HCPCS: 93971 ==